=== PATIENT | female | born 1960 | race Caucasian/White ===

== ENCOUNTER 2023-01-24 11:10 | Emergency (ER) | payer OTHER ==
--- NOTE | 2023-01-24 11:59 | XRAY Report ---
PROCEDURE: Chest 1 View X-Ray INDICATIONS: SOA TECHNIQUE: One view of the chest was acquired. COMPARISON: None. FINDINGS: Surgical changes and devices: None. Lungs and pleura: No pleural effusions or pneumothorax. Lungs are clear. Mediastinum: Mediastinal contours appear normal. Heart size is normal. Bones and chest wall: No suspicious bony lesions. Overlying soft tissues appear unremarkable. IMPRESSION: No acute process. Reviewed by: Mj Bajwa MD on 01/24/2023 11:57 AM PDT Approved by: Mj Bajwa MD on 01/24/2023 11:57 AM PDT Station ID: [id number]
[2023-01-24] MEDS ORDERED: DEXAMETHASONE 10 MG/ML VIAL PO STA (13:11)
[2023-01-24] MEDS ORDERED: CHERRY SYRUP 10 ML UDC PO ONE (13:11)
[2023-01-24] MEDS ORDERED: IPRATROPIUM/ALBUTEROL 3 ML NEB INH STA (13:13)
--- NOTE | 2023-01-24 13:18 | ED Physician Documentation ---
PD HPI DYSPNEA - Stated complaint Stated Complaint: SOA - Chief complaint Chief Complaint: Resp - History obtained from History obtained from: Patient - History of Present Illness Timing - onset: Yesterday Timing - onset during: Rest Timing - duration: Days (2) Timing - details: Gradual onset, Still present Inciting event(s): Other (feels like it might be a pollen thing) Improved by: O2, Rest Worsened by: Exertion, Coughing, Allergens Associated symptoms: Cough, Wheezing. No: Bilateral edema, Unilateral edema Similar symptoms before: Diagnosis (eosinophilic asthma) Recently seen: Not recently seen - Additional information Additional information: Radha Patel is a 62-year-old female with a history of eosinophilic asthma who has been using her inhaler regularly and she does not using a rescue inhaler. Starting last night she began to have more more difficulty breathing and this morning she found that she was actually hypoxic with her home O2 monitor. She is come to the emergency department for evaluation. She has developed a cough and congestion. She is not bringing up phlegm. She feels this is related to pollens. Review of Systems Constitutional: denies: Fever Eyes: denies: Decreased vision Ears: denies: Ear pain Nose: reports: Congestion. 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 : None HEENT: None Psych: None Musculoskeletal: None Derm: None - Past Surgical History Past Surgical History: No - Present Medications Home Medications: Ambulatory Orders Medication Instructions Recorded Confirmed Albuterol Sulf [Ventolin Hfa 1 - 2 puffs INH Q4HR PRN #1 each 01/24/23 Inhaler] Cholecalciferol (Vitamin D3) 50 mcg PO DAILY 01/24/23 01/24/23 [Vitamin D3] DULoxetine [Cymbalta] 60 mg PO DAILY 01/24/23 01/24/23 Melatonin 5 mg PO HS 01/24/23 01/24/23 Prednisone [Brandon] 5 mg PO DAILY 01/24/23 01/24/23 QUEtiapine [SEROquel] 25 mg PO QPM 01/24/23 01/24/23 Thiamine [Vitamin B-1] 100 mg PO DAILY 01/24/23 01/24/23 Trazodone HCl 150 mg ORAL HS 01/24/23 01/24/23 diphenhydrAMINE [Benadryl] 25 mg PO Q4-6H 01/24/23 01/24/23 predniSONE [Deltasone] 10 mg PO ONCE #26 tablet 01/24/23 - Allergies Allergies/Adverse Reactions: Allergies Allergy/AdvReac Type Severity Reaction Status Date / Time No Known Drug Allergies Allergy Verified 01/24/23 11:27 - Social History Does the pt smoke?: No Smoking Status: Light tobacco smoker Does the pt drink ETOH?: No Does the pt have substance abuse?: No - Immunizations Immunizations are current?: Yes PD ED PE NORMAL - Vitals Vital signs reviewed: Yes - General General: Alert and oriented X 3, No acute distress, Well developed/nourished - HEENT HEENT: Atraumatic, PERRL, EOMI, Pharynx benign, Other (right TM obscured with cerumen left is clear ) - Neck Neck: Supple, no meningeal sign, No bony TTP - Cardiac Cardiac: RRR, No murmur - Respiratory Respiratory: Other (Tachypneic with diminished breath sounds and scattered wheezes) - Abdomen Abdomen: Soft, Non tender - Back Back: No CVA TTP, No spinal TTP - Derm Derm: Normal color, Warm and dry, No rash - Extremities Extremities: No deformity, No edema - Neuro Neuro: Alert and oriented X 3, powerhouse tender 2-12 intact, No motor deficit, No sensory deficit, Normal speech Eye Opening: Spontaneous Motor: Obeys Commands Verbal: Oriented GCS Score: 15 - Psych Psych: Normal mood, Normal affect Results - Vitals Vitals: Vital Signs - 24 hr 01/24/23 01/24/23 01/24/23 11:28 12:40 12:48 Temperature 36.6 C Heart Rate 107 H 100 99 Respiratory 28 H 20 22 Rate Blood Pressure 147/87 H 144/101 H O2 Saturation 92 88 L 93 If not protocol 2 : Oxygen Flow, liters/minute 01/24/23 01/24/23 01/24/23 13:25 14:03 14:32 Temperature Heart Rate 101 H 96 91 Respiratory 17 17 18 Rate Blood Pressure 139/98 H 126/89 H O2 Saturation 93 92 If not protocol 1.5 2 : Oxygen Flow, liters/minute Oxygen O2 Source Room air Oxygen Flow Rate 2 - Rads (name of study) Chest Relevant Findings:: Prelim report reviewed (Impression: No acute process.), EMP independent interpretation of test PD Medical Decision Making - ED course Complexity details: reviewed results, re-evaluated patient, considered differential, d/w patient ED course: 62-year-old female with eosinophilic asthma has an exacerbation. She arrives to the emergency department with some hypoxia this improves with oxygen. She has further improvement in her hypoxia to not require oxygen after treatment with dexamethasone and a DuoNeb. We will place her on a short burst of prednisone and have her follow-up with her stull hewer. She is not using a rescue inhaler at home and we will refill her rescue inhaler. Departure - Departure Disposition: Home, Self Care Clinical Impression: Exacerbation of persistent asthma Qualifiers: Asthma severity: moderate Qualified Code(s): J45.41 - Moderate persistent asthma with (acute) exacerbation Condition: Stable Instructions: ED Reactive Airway Disease Follow-Up: Ras Yang pulomonogist [Other] Prescriptions: Albuterol Sulf [Ventolin Hfa Inhaler] 1 - 2 puffs INH Q4HR PRN #1 each PRN Reason: Shortness Of Air/Wheezing predniSONE [Deltasone] 10 mg PO ONCE #26 tablet Comments: Radha, today it looks like you have an exacerbation of your asthma and we have given you a dose of dexamethasone today as well as a breathing treatment. It looks like this has helped. My recommendation is to start the prednisone taper tomorrow. This has been E scribed to the [facility] in [place]. In addition the use of a rescue inhaler under the circumstances is indicated. I have E scribed this to the [facility] in [place] as well. Use this when you are having difficulty breathing. If you are having to use the rescue inhaler every 2 hours all day or all night come back in here and see us. Discharge Date/Time: 01/24/23 14:58
[2023-01-24 14:38] VITALS: BP 126/89
== END 2023-01-24 14:58 | disposition home or self-care (01) ==
LOC: ED 11:10
DX: J45.41 Moderate persistent asthma with (acute) exacerbation (principal); I10 Essential (primary) hypertension; F17.200 Nicotine dependence, unspecified, uncomplicated; Z79.899 Other long term (current) drug therapy
CPT/HCPCS: 71045; 94640; 99283; 99284; A9270

== ENCOUNTER 2023-01-30 12:43 | Emergency (ER) | payer OTHER ==
--- NOTE | 2023-01-30 12:50 | ED Physician Documentation ---
PD HPI DYSPNEA - Stated complaint Stated Complaint: SOA - History obtained from History obtained from: Patient - History of Present Illness Timing - onset: How many weeks ago (08/01) Timing - onset during: Light activity Timing - duration: Weeks (08/01) Timing - details: Gradual onset, Still present Inciting event(s): URI (The patient has a history of asthma and feels that she has had some upper respiratory infection or allergies with increased wheezing and trouble breathing over the last 1-1/2 weeks. She is seen in the ER here approximately 6 days ago for this and given nebulizer treatment and started on prednisone.) Improved by: Inhaler/neb (She states her albuterol inhaler does help some but not prolongedly. She had felt better on the first 2 or 3 days after her visit here but more symptoms the last day. She has a home oximeter that showed high 80s percent last night/today.), Rest Worsened by: Exertion Associated symptoms: Cough, Wheezing. No: Fever, Hemoptysis, Chest pain / discomfort, Bilateral edema Similar symptoms before: Diagnosis (asthma) Recently seen: Emergency Dept (6 days ago) Review of Systems Constitutional: reports: Myalgias. denies: Fever, Chills Nose: reports: Congestion. denies: Rhinorrhea / runny nose Throat: denies: Sore throat Cardiac: denies: Chest pain / pressure Respiratory: reports: Dyspnea, Cough, Wheezing. denies: Hemoptysis GI: denies: Abdominal Pain, Nausea, Vomiting, Diarrhea Skin: denies: Rash, Lesions Neurologic: reports: Headache. 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 : None HEENT: None Psych: None Musculoskeletal: None Derm: None - Past Surgical History Past Surgical History: No - Present Medications Home Medications: Ambulatory Orders Medication Instructions Recorded Confirmed Albuterol Sulf [Ventolin Hfa 1 - 2 puffs INH Q4HR PRN #1 each 01/24/23 Inhaler] Cholecalciferol (Vitamin D3) 50 mcg PO DAILY 01/24/23 01/24/23 [Vitamin D3] DULoxetine [Cymbalta] 60 mg PO DAILY 01/24/23 01/24/23 Melatonin 5 mg PO HS 01/24/23 01/24/23 Prednisone [Brandon] 5 mg PO DAILY 01/24/23 01/24/23 QUEtiapine [SEROquel] 25 mg PO QPM 01/24/23 01/24/23 Thiamine [Vitamin B-1] 100 mg PO DAILY 01/24/23 01/24/23 Trazodone HCl 150 mg ORAL HS 01/24/23 01/24/23 diphenhydrAMINE [Benadryl] 25 mg PO Q4-6H 01/24/23 01/24/23 predniSONE [Deltasone] 10 mg PO ONCE #26 tablet 01/24/23 Amox/Clav 875/125 [Augmentin] 1 each PO Q12H #10 tablet 01/30/23 Ipratropium [Atrovent] 2 puffs INH Q6H #12.9 gm 01/30/23 dexAMETHasone [Decadron] 4 mg PO DAILY #7 tablet 01/30/23 - Allergies Allergies/Adverse Reactions: Allergies Allergy/AdvReac Type Severity Reaction Status Date / Time No Known Drug Allergies Allergy Verified 01/30/23 12:52 - Social History Does the pt smoke?: No Smoking Status: Light tobacco smoker Does the pt drink ETOH?: No Does the pt have substance abuse?: No - Immunizations Immunizations are current?: Yes PD ED PE NORMAL - Vitals Vital signs reviewed: Yes (sats 83% room air at triage, better on NC. ) - General General: Alert and oriented X 3, Well developed/nourished, Other (Prolonged expiratory phase. She is able to talk in sentences. Diffuse wheezing throughout all of expiration.) - Cardiac Cardiac: No murmur. No: RRR (regulr but tachycardic) - Respiratory Respiratory: No: Clear bilaterally (no coarse sounds but diffuse exp wheezing and tight lung sounds. Prolonged exp phase. ) - Abdomen Abdomen: Soft, Non tender - Derm Derm: Normal color, Warm and dry - Extremities Extremities: Normal ROM s pain, No edema, No calf tenderness / cord - Neuro Neuro: Alert and oriented X 3, No motor deficit, Normal speech - Psych Psych: Normal mood Results - Vitals Vitals: Vital Signs - 24 hr 01/30/23 01/30/23 01/30/23 12:52 12:56 13:10 Temperature 36.5 C 36.5 C Heart Rate 120 H 120 H 122 H Respiratory 38 H 28 H 20 Rate Blood Pressure 150/100 H 150/100 H O2 Saturation 83 L 93 If not protocol 4 : Oxygen Flow, liters/minute 01/30/23 01/30/23 01/30/23 14:03 15:33 16:45 Temperature Heart Rate 112 H 108 H 107 H Respiratory 18 18 16 Rate Blood Pressure 145/91 H 141/92 H O2 Saturation 94 95 If not protocol 2 : Oxygen Flow, liters/minute Oxygen O2 Source Room air Oxygen Flow Rate 2 - Labs Labs: Laboratory Tests 01/30/23 01/30/23 13:23 13:23 WBC 13.8 H RBC 4.60 Hgb 14.2 Hct 42.6 MCV 92.6 MCH 30.9 MCHC 33.3 RDW 12.5 Plt Count 316 MPV 8.3 Neut # (Auto) 9.2 H Lymph # (Auto) 1.9 [place] # (Auto) 0.6 Eos # (Auto) 1.9 H Baso # (Auto) 0.1 Absolute Nucleated RBC 0.00 Nucleated RBC % 0.0 Manual Slide Review Indicated RBC Morph Micro Appear 1+ ANISOCYTOSIS Sodium 138 Potassium 3.9 Chloride 104 Carbon Dioxide 26 Anion Gap 8.0 BUN 19 Creatinine 0.9 Estimated GFR (MDRD) 63 L Glucose 165 H Calcium 9.3 Total Bilirubin 0.7 AST 13 ALT 15 Alkaline Phosphatase 69 Total Protein 7.1 Albumin 4.1 Globulin 3.0 Albumin/Globulin Ratio 1.4 Lipase 37 - Rads (name of study) chest xray Relevant Findings:: Prelim report reviewed, EMP independent interpretation of test (no infiltrates.), See rad report PD Medical Decision Making - ED course Complexity details: considered differential, d/w patient ED course: The present patient presented with significant wheezing and some pursed lip breathing with prolonged expirations. Lung sounds were diffusely wheezy without any coarse sounds. Her initial oxygenation at triage was 83% on room air but improved to 94% on just 3 L nasal cannula. She was given DuoNeb and then albuterol nebulizers promptly here in the ER. She had been on tapering dose of prednisone from 6 days ago and was at the last dose 10 mg today. I supplemented with dexamethasone 8 mg orally for today. Recheck showed her to have less wheezing but still borderline oxygenation attempted on room air. She was comfortable at 2 L nasal cannula and had improved work of breathing. Approximately 30 to 40 minutes later, we did do a repeat albuterol nebulizer again along with budesonide nebulized. The patient was watched subsequently and had only mild wheezing at this time. Oxygenation on room air was 93 to 95%. She was feeling comfortable breathing. Chest x-ray did not show any infiltrates. However she does have a history of asthma and was having some sputum production. Literature would suggest the use of antibiotics in the setting. The patient seems stable for discharge and was here in the ER doing well on room air. She does have an oximeter at home. She is comfortable being discharged at this time. We will add an Atrovent to her albuterol inhaler. Respiratory therapy said it could potentially be possible to set her up with a home nebulizer subsequently if needed, though not able to set up home oxygen without primary care order. At this point we can still try the inhalers and add the Atrovent to it, continue her on steroids for another 5 to 7 days and add Augmentin antibiotic. She is to return to the ER if worsening breathing again or low oxygenation at home. Departure - Departure Disposition: Home, Self Care Clinical Impression: Exacerbation of asthma, Dyspnea Condition: Stable Record reviewed to determine appropriate education?: Yes Prescriptions: Ipratropium [Atrovent] 2 puffs INH Q6H #12.9 gm Amox/Clav 875/125 [Augmentin] 1 each PO Q12H #10 tablet dexAMETHasone [Decadron] 4 mg PO DAILY #7 tablet Comments: I would have you add the ipratropium/Atrovent inhaler as directed 4 times daily in addition to your albuterol inhaler 4 times daily over the next week or 2. At the albuterol extra doses every 2 hours if needed for wheeziness. I would extend your steroids. Dexamethasone daily for a week. Given your worsening symptoms with your asthma, we can add an antibiotic in case of a bacterial component. Augmentin twice daily for 5 days. I sent these prescriptions to your preferred pharmacy, [facility] in [place]. Your oxygenation was low initially but seem to improve after several treatments. At this point your 93 to 95% on room air. Keep track of this at home with your oximeter. Return if worsening again despite the above treatments.
[2023-01-30] MEDS: IPRATROPIUM/ALBUTEROL 3 ML NEB INH STA (13:07)
[2023-01-30] MEDS: ALBUTEROL NEB 2.5 MG/3 ML INH STA ×2 (13:23→15:30)
[2023-01-30 13:28] LABS: BASOPHILS # (AUTO) 0.1 10^3/uL (0.0-0.1); BASOPHILS % (AUTO) 0.8 %; EOSINOPHILS # (AUTO) 1.9 10^3/uL (0.0-0.7); EOSINOPHILS % (AUTO) 13.5 %; HCT - HEMATOCRIT 42.6 % (37.0-47.0); HGB - HEMOGLOBIN 14.2 g/dL (12.0-16.0); LYMPHOCYTES # (AUTO) 1.9 10^3/uL (1.5-3.5); MEAN CORPUSCULAR HEMOGLOBIN 30.9 pg (27.0-31.0); MEAN CORPUSCULAR HGB CONC 33.3 g/dL (32.0-36.0); MEAN CORPUSCULAR VOLUME 92.6 fL (81.0-99.0); MEAN PLATELET VOLUME 8.3 fL (7.9-10.8); MONOCYTES # (AUTO) 0.6 10^3/uL (0.0-1.0); MONOCYTES % (AUTO) 4.6 %; NEUTROPHILS # (AUTO) 9.2 10^3/uL (1.5-6.6); NEUTROPHILS % (AUTO) 66.6 %; PLT - PLATELET COUNT 316 10^3/uL (130-450); RED CELL DISTRIBUTION WIDTH 12.5 % (12.0-15.0); WHITE BLOOD COUNT 13.8 x10^3/uL (4.8-10.8)
[2023-01-30] MEDS: dexAMETHasone 4 MG TABLET PO STA (13:28)
[2023-01-30] MEDS: CETIRIZINE 10 MG TABLET PO STA (13:28)
[2023-01-30 13:31] LABS: SLIDE REVIEW? Indicated
--- NOTE | 2023-01-30 13:43 | XRAY Report ---
PROCEDURE: Chest 1 View X-Ray INDICATIONS: chest pain TECHNIQUE: One view of the chest was acquired. COMPARISON: None. FINDINGS: Surgical changes and devices: None. Lungs and pleura: No pleural effusions or pneumothorax. Lungs are clear. Mediastinum: Mediastinal contours appear normal. Heart size is normal. Bones and chest wall: No suspicious bony lesions. Overlying soft tissues appear unremarkable. IMPRESSION: No acute cardiopulmonary process. Reviewed by: Vineet Santana on 01/30/2023 1:41 PM PDT Approved by: Vineet Santana on 01/30/2023 1:41 PM PDT Station ID: [id number]
[2023-01-30 13:55] LABS: ALBUMIN 4.1 g/dL (3.2-5.5); ALBUMIN/GLOBULIN RATIO 1.4 (1.0-2.2); BILIRUBIN,TOTAL 0.7 mg/dL (0.2-1.0); CALCIUM 9.3 mg/dL (8.5-10.3); CREATININE 0.9 mg/dL (0.4-1.0); POTASSIUM 3.9 mmol/L (3.5-5.0); RBC MORPHOLOGY (MULTIPLE) 1+ ANISOCYTOSIS (NORMAL); TOTAL PROTEIN 7.1 g/dL (6.7-8.2)
[2023-01-30] MEDS: AMOX/CLAV 875 MG/125 MG TABLET PO STA (15:13)
[2023-01-30] MEDS: BUDESONIDE 0.5 MG/2 ML NEB INH STA (15:31)
[2023-01-30] MEDS: ACETAMINOPHEN 325 MG TABLET PO STA (17:04)
[2023-01-30 17:29] VITALS: BP 139/86
--- NOTE | 2023-01-30 19:22 | ED Physician Documentation ---
ED Addendum - Addendum Addendum: 01/30/23 19:22 Took call from pharmacy. Ipratropium inhaler not covered. Authorized changed to Combivent with the same Sig.
== END 2023-01-30 17:27 | disposition home or self-care (01) ==
LOC: ED 12:43
DX: J45.901 Unspecified asthma with (acute) exacerbation (principal); I10 Essential (primary) hypertension; F17.200 Nicotine dependence, unspecified, uncomplicated; Z79.899 Other long term (current) drug therapy
CPT/HCPCS: 36415; 71045; 80053; 83690; 85025; 94640; 99284; 99285; A9270; J7626; J8540

== ENCOUNTER 2023-02-05 12:04 | Observation (INO) | payer OTHER ==
[2023-02-05] MEDS ORDERED: IPRATROPIUM/ALBUTEROL 3 ML NEB INH STA (12:19)
[2023-02-05] MEDS ORDERED: ALBUTEROL NEB 2.5 MG/3 ML INH STA ×2 (12:28→12:57)
[2023-02-05] MEDS ORDERED: methylPREDNISolone SUCCINATE 125 MG/2 ML VIAL IVP STA (12:30)
[2023-02-05] MEDS ORDERED: ALBUTEROL NEB 2.5 MG/3 ML INH ONE (12:35)
--- NOTE | 2023-02-05 12:35 | ED Physician Documentation ---
History of Present Illness - Stated complaint Stated Complaint: SOA - Chief complaint Chief Complaint: Resp - Additonal information Additional information: 62-year-old female presents emergency department for evaluation of severe dyspnea. Reports that she has a history of eosinophilic asthma which was evaluated managed by pulmonology at [place]. Recently she has been on a steroid taper. However over the last several weeks she has been having increasing dyspnea. Today is the third ED visit since late December for dyspnea and hypoxemia. With the last ED visit on February 03 that she was started on Augmentin and given a further course of steroids with Decadron. While in the ER without last visit she was able to turn around after several nebulizers. The patient is using Combivent and albuterol inhalers orally at home almost constantly without resolution of symptoms. Here in the emergency department she presents tripoding tachypneic and saturating 85% on room air. She was immediately placed to a nonrebreather and brought into the emergency department. On presentation she is alert and talkative though clearly in respiratory distress. Patient reports that she is a former smoker having quit about 2 years ago. Review of Systems Constitutional: denies: Fever, Chills Cardiac: denies: Chest pain / pressure, Palpitations Respiratory: reports: Dyspnea, Cough, Wheezing GI: reports: Reviewed and negative : reports: Reviewed and negative Skin: reports: Reviewed and negative PD PAST MEDICAL HISTORY - Past Medical History Cardiovascular: Hypertension Respiratory: Asthma Neuro: Peripheral neuropathy Endocrine/Autoimmune: None GI: None HEAD OF STOCK: None : None HEENT: None Psych: None Musculoskeletal: None Derm: None - Past Surgical History Past Surgical History: No - Present Medications Home Medications: Ambulatory Orders Medication Instructions Recorded Confirmed Albuterol Sulf [Ventolin Hfa 1 - 2 puffs INH Q4HR PRN #1 each 01/24/23 Inhaler] Cholecalciferol (Vitamin D3) 50 mcg PO DAILY 01/24/23 01/24/23 [Vitamin D3] DULoxetine [Cymbalta] 60 mg PO DAILY 01/24/23 01/24/23 Melatonin 5 mg PO HS 01/24/23 01/24/23 Prednisone [Brandon] 5 mg PO DAILY 01/24/23 01/24/23 QUEtiapine [SEROquel] 25 mg PO QPM 01/24/23 01/24/23 Thiamine [Vitamin B-1] 100 mg PO DAILY 01/24/23 01/24/23 Trazodone HCl 150 mg ORAL HS 01/24/23 01/24/23 diphenhydrAMINE [Benadryl] 25 mg PO Q4-6H 01/24/23 01/24/23 predniSONE [Deltasone] 10 mg PO ONCE #26 tablet 01/24/23 Amox/Clav 875/125 [Augmentin] 1 each PO Q12H #10 tablet 01/30/23 Ipratropium [Atrovent] 2 puffs INH Q6H #12.9 gm 01/30/23 dexAMETHasone [Decadron] 4 mg PO DAILY #7 tablet 01/30/23 - Allergies Allergies/Adverse Reactions: Allergies Allergy/AdvReac Type Severity Reaction Status Date / Time No Known Drug Allergies Allergy Verified 01/30/23 12:52 - Social History Does the pt smoke?: No Smoking Status: Light tobacco smoker Does the pt drink ETOH?: No Does the pt have substance abuse?: No - Immunizations Immunizations are current?: Yes PD ED PE NORMAL - General General: Alert and oriented X 3 - Cardiac Cardiac: RRR (Sinus tachycardia on the monitor), Strong equal pulses - Respiratory Respiratory: No: No respiratory distress (Significant respiratory distress tachypneic in the 30s, tripoding. Distant to absent breath sounds on the right lung though diffuse wheeze on the left. Room air saturations 85%, saturating 94% on nonrebreather), Clear bilaterally - Abdomen Abdomen: Normal bowel sounds, Soft - Extremities Extremities: No deformity - Neuro Neuro: Alert and oriented X 3 Eye Opening: Spontaneous Motor: Obeys Commands Verbal: Oriented GCS Score: 15 Results - Vitals Vitals: Vital Signs - 24 hr 02/05/23 02/05/23 02/05/23 12:13 12:17 12:36 Temperature 36.6 C Heart Rate 125 H 124 H 120 H Respiratory 34 H 22 28 H Rate Blood Pressure 162/116 H O2 Saturation 85 L 97 02/05/23 13:04 Temperature Heart Rate 128 H Respiratory 28 H Rate Blood Pressure O2 Saturation Oxygen O2 Source Nasal cannula - EKG (time done) 1338 EKG releavant findings:: EKG personally interpreted by author of this note. Relevant findings are: Rate: Rate (enter#) (130) Rhythm: Sinus tachycardia [place]: LAD QRS: Low voltage Ischemia: Non specific changes Compare to prior EKG: Old EKG unavailable Computer interpretation: Agree with computer - Labs Labs: Laboratory Tests 02/05/23 02/05/23 02/05/23 12:32 12:32 12:32 WBC 15.5 H RBC 4.56 Hgb 14.1 Hct 42.1 MCV 92.3 MCH 30.9 MCHC 33.5 RDW 12.5 Plt Count 309 MPV 8.5 Neut # (Auto) MEDICAL PRACTICE ADMINISTRATOR Lymph # (Auto) MEDICAL PRACTICE ADMINISTRATOR [place] # (Auto) MEDICAL PRACTICE ADMINISTRATOR Eos # (Auto) MEDICAL PRACTICE ADMINISTRATOR Baso # (Auto) MEDICAL PRACTICE ADMINISTRATOR Absolute Nucleated RBC MEDICAL PRACTICE ADMINISTRATOR Total Counted 100 Band Neuts % (Manual) 1 Abnorm Lymph % (Manual) 0 Metamyelocytes % 1 H Nucleated RBC % MEDICAL PRACTICE ADMINISTRATOR Neutrophils # (Manual) 9.1 H Lymphocytes # (Manual) 3.3 Monocytes # (Manual) 0.9 Eosinophils # (Manual) 1.7 H Basophils # (Manual) 0.3 H Differential Comment MANUAL DIFFERENTIAL Manual Slide Review Indicated WBC Morphology NORMAL APPEARANCE Platelet Estimate NORMAL (130-450,000) Platelet Morphology NORMAL APPEARANCE RBC Morph Micro Appear NORMAL APPEARANCE Bld Gas Analysis Time Sample Site ABG pH ABG pCO2 ABG pO2 ABG HCO3 ABG Total CO2 ABG O2 Saturation ABG Base Excess Case Test O2 Delivery Device FiO2 Sodium 140 Potassium 3.8 Chloride 107 Carbon Dioxide 27 Anion Gap 6.0 BUN 22 H Creatinine 0.9 Estimated GFR (MDRD) 63 L Glucose 144 H Calcium 9.4 Total Bilirubin 0.5 AST 13 ALT 17 Alkaline Phosphatase 64 B-Natriuretic Peptide 14 Total Protein 7.0 Albumin 3.8 Globulin 3.2 Albumin/Globulin Ratio 1.2 Lipase 33 02/05/23 12:40 WBC RBC Hgb Hct MCV MCH MCHC RDW Plt Count MPV Neut # (Auto) Lymph # (Auto) [place] # (Auto) Eos # (Auto) Baso # (Auto) Absolute Nucleated RBC Total Counted Band Neuts % (Manual) Abnorm Lymph % (Manual) Metamyelocytes % Nucleated RBC % Neutrophils # (Manual) Lymphocytes # (Manual) Monocytes # (Manual) Eosinophils # (Manual) Basophils # (Manual) Differential Comment Manual Slide Review WBC Morphology Platelet Estimate Platelet Morphology RBC Morph Micro Appear Bld Gas Analysis Time 1257 Sample Site RIGHT RADIAL ABG pH 7.25 L ABG pCO2 57 H ABG pO2 98 ABG HCO3 24.5 ABG Total CO2 26.2 ABG O2 Saturation 96 ABG Base Excess -3.7 L Case Test POSITIVE O2 Delivery Device SIMPLE MASK FiO2 40.00 Sodium Potassium Chloride Carbon Dioxide Anion Gap BUN Creatinine Estimated GFR (MDRD) Glucose Calcium Total Bilirubin AST ALT Alkaline Phosphatase B-Natriuretic Peptide Total Protein Albumin Globulin Albumin/Globulin Ratio Lipase - Rads (name of study) cxr Relevant Findings:: Final report received (No acute cardiopulmonary process.) PD Medical Decision Making - ED course Complexity details: reviewed results, re-evaluated patient, considered differential, d/w patient ED course: 62-year-old female who has a history of eosinophilic asthma presents emergency department with acute respiratory distress/failure. She has been seen twice in this emergency department over the last several weeks and has been able to tune up and be discharged home after several nebulizers and courses of steroids. She remains on Decadron. However she has been using her albuterol inhaler constantly today as well as her ipratropium without resolution of symptoms. On presentation room air sats were 85%. She was tachypneic labored and tripoding. She was immediately placed on a nonrebreather with improvement in sa ts to 94%. RT was called to the bedside and a DuoNeb with albuterol was initiated. Initially cardiopulmonary auscultation refill field very poor air entry and almost no wheeze on the right side though there was wheezing on the left. Following the initial nebulizer she began to have some wheezing in both of her lung sorensen and her saturations had improved to 100%. Subsequently an ABG was obtained which showed a respiratory acidosis with pH of 7.25 and a CO2 of 57. Her PO2 was in the 90s. I also obtained a CBC and electrolytes. There is some mild leukocytosis with a white count of 15,000 however she has recently been on steroids. A chest x-ray showed no acute cardiopulmonary process and appears unchanged from the one completed recently. Patient was also administered 125 mg of methylprednisolone IV. Respiratory PCR panel is pending. Following the initial nebulizer a second albuterol 5 mg nebulizer was ordered and the patient was improving though I am a and fearful she will require BiPAP. Subsequently I have spoken with Dr. Shane the hospitalist who graciously agrees to bring the patient in for further evaluation and monitoring of her respiratory failure. The patient will be going to the ICU. - Critical Care Time(min): 30 Time Includes: Direct patient care, Review records, Reassess patient Data interpretation: Labs, Pulse ox, ABG Departure - Departure Disposition: 66 [facility] DC/Xfer Clinical Impression: Eosinophilic asthma Respiratory failure Qualifiers: Chronicity: acute Respiratory failure complication: hypoxia and hypercapnia Qualified Code(s): J96.01 - Acute respiratory failure with hypoxia
[2023-02-05] MEDS ORDERED: LORazepam 2 MG/ML VIAL IVP STA (12:40)
[2023-02-05 12:41] LABS: BASOPHILS % (AUTO) 0.8 %; HGB - HEMOGLOBIN 14.1 g/dL (12.0-16.0); RED CELL DISTRIBUTION WIDTH 12.5 % (12.0-15.0)
[2023-02-05 12:43] LABS: EOSINOPHILS % (AUTO) 10.2 %; HCT - HEMATOCRIT 42.1 % (37.0-47.0); LYMPHOCYTES % (AUTO) 22.6 %; MEAN CORPUSCULAR HEMOGLOBIN 30.9 pg (27.0-31.0); MEAN CORPUSCULAR HGB CONC 33.5 g/dL (32.0-36.0); MEAN CORPUSCULAR VOLUME 92.3 fL (81.0-99.0); MEAN PLATELET VOLUME 8.5 fL (7.9-10.8); MONOCYTES % (AUTO) 5.2 %; NEUTROPHILS % (AUTO) 60.3 %; PLT - PLATELET COUNT 309 10^3/uL (130-450); RED BLOOD COUNT 4.56 10^6/uL (4.20-5.40); WHITE BLOOD COUNT 15.5 x10^3/uL (4.8-10.8)
[2023-02-05 12:45] LABS: ABNORMAL LYMPHS % (MANUAL) 0 %; SLIDE REVIEW? Indicated
[2023-02-05 12:53] LABS: ALBUMIN 3.8 g/dL (3.2-5.5); ALBUMIN/GLOBULIN RATIO 1.2 (1.0-2.2); BILIRUBIN,TOTAL 0.5 mg/dL (0.2-1.0); CALCIUM 9.4 mg/dL (8.5-10.3); CREATININE 0.9 mg/dL (0.4-1.0); POTASSIUM 3.8 mmol/L (3.5-5.0)
[2023-02-05 12:58] LABS: ABG BASE EXCESS -3.7 mmol/L (-2.0-3.0); ABG HCO3 24.5 mmol/L (22.0-26.0); ABG OXYGEN SATURATION 96 % (94-98); ABG PCO2 57 mmHg (34-45); ABG PH 7.25 (7.35-7.45); ABG PO2 98 mmHg (80-100); ABG TCO2 26.2 MMOL/L (21.0-29.0); ALLEN TEST POSITIVE
[2023-02-05 13:06] LABS: BAND NEUTROPHILS % (MANUAL) 1 %; BASOPHILS # (MANUAL) 0.3 10^3/uL (0-0.1); BASOPHILS % (MANUAL) 2 %; EOSINOPHILS # (MANUAL) 1.7 10^3/uL (0-0.7); LYMPHOCYTES # (MANUAL) 3.3 10^3/uL (1.5-3.5); LYMPHOCYTES % (MANUAL) 21 %; METAMYELOCYTES % (MANUAL) 1 %; MONOCYTES # (MANUAL) 0.9 10^3/uL (0.0-1.0); NEUTROPHILS # (MANUAL) 9.1 10^3/uL (1.5-6.6)
[2023-02-05 13:07] LABS: PLATELET ESTIMATE, MANUAL NORMAL (130-450,000) (NORMAL); PLATELET MORPHOLOGY NORMAL APPEARANCE (NORMAL); RBC MORPHOLOGY (MULTIPLE) NORMAL APPEARANCE (NORMAL); WBC MORPHOLOGY (MULTIPLE) NORMAL APPEARANCE (NORMAL)
[2023-02-05 13:08] LABS: DIFFERENTIAL COMMENT MANUAL DIFFERENTIAL
--- NOTE | 2023-02-05 13:10 | XRAY Report ---
PROCEDURE: Chest 1 View X-Ray INDICATIONS: SOA, hypoxia TECHNIQUE: One view of the chest was acquired. COMPARISON: None. FINDINGS: Surgical changes and devices: None. Lungs and pleura: No pleural effusions or pneumothorax. Lungs are clear. Mediastinum: Mediastinal contours appear normal. Heart size is normal. Bones and chest wall: No suspicious bony lesions. Rightward curvature of the thoracic spine Overlyin g soft tissues appear unremarkable. IMPRESSION: No acute cardiopulmonary process. Reviewed by: Rao Vidal on 02/05/2023 12:08 PM JOI Approved by: Rao Vidal on 02/05/2023 12:08 PM JOI Station ID: [id number]
[2023-02-05] MEDS ORDERED: oxyCODONE 5 MG TABLET PO PRN (13:24)
[2023-02-05] MEDS ORDERED: ONDANSETRON 4 MG/2 ML VIAL IVP PRN (13:24)
[2023-02-05] MEDS ORDERED: SODIUM CHLORIDE FLUSH 0.9% 10 ML SYRINGE IVP PRN (13:24)
[2023-02-05] MEDS ORDERED: ONDANSETRON ODT 4 MG TABLET TL PRN (13:24)
[2023-02-05] MEDS ORDERED: ALBUTEROL NEB 2.5 MG/3 ML INH PRN (13:27)
[2023-02-05] MEDS ORDERED: FORMOTEROL FUMARATE NEB 20 MCG/2 ML INH STA (13:28)
--- NOTE | 2023-02-05 13:32 | HISTORY & PHYSICAL EXAMINATION ---
Chief Complaint - Chief Complaint Chief Complaint: Severe shortness of History of Present Illness - Admitted From Admitted From:: Home - History Obtained From Records Reviewed: [facility] History obtained from: Patient and MANAGER PHOTOGRAPHY in the ER Exam Limitations: None - History of Present Illness HPI Comment/Other: This is a 62-year-old female who is followed in the [facility] by pulmonology for a new diagnosis of eosinophilic asthma. Dr. Cosme at [facility] is the [employer] Crew Chief at [phone]. This is now her third visit to the ED in the last month. She usually recovers with nebulizer treatments and is able to go home after nebulizer treatment and a steroid infusion. Maintenance therapy for her asthma is albuterol and ipratropium as needed with intermittent pulse dose steroids Deltasone or dexamethasone. But I am not seeing a chronic maintenance therapy of long-acting bronchodilators. Or leukotriene inhibitors. Patient is not aware of the etiology of the eosinophilic pneumonitis. Her dad tells me that she does take her meds and he gives them to her. He stopped her Seroquel . Gabapentin is also being phased that out. This morning he noted some of those pills on her night stand. 2 weeks ago she was told by her [facility] doctor to go on oxygen. She was using her inhalers every 2 minutes bc so frantic to breath. In the emergency room temperature was 36.6, heart rate 125, blood pressure 162/116, respirations 34 and she was 85% on room air. The chest x-ray has no infiltrate. White cell count is elevated at 15,000 but she is on steroids. It was 13.8 on the January 30 ER visit. The ER provider described her as struggling to breathe, tripoding, tachypneic, and desperate. No air movement at all. She received 2 nebulizers and a Solu- Medrol injection. She now has timo wheezing and that provider can hear breath sounds. But she is still tachypneic at 28. Still tachycardic at 128.She is very, very anxious. Keeps on pulling the mask off her face. She had to get Ativan to calm her down. ER provider and I discussed that the patient should most likely come in for observation status. However she is tenuous with regards to stability and the ER provider thinks that she may need BiPAP if not timo intubation if this doesn't work. As such, I am placing the patient in the ICU. I have discussed the case with respiratory therapy as well. He has been working with her in the ER for the last hour or 2 and he says that her anxiety is a large component of her current presentation. He is dubious that we will be able to keep the BiPAP mask on her without severe sedation. Her dad confirms that s he is very driven by anxiety. It just escalates her breathing to the point that it is out of control. But I told him that was so understandable. When you feel like you cannot breathe, it must be a horrible feeling. He also tells me that she has advanced directives in her will and she doesn't want life support, no intubation or CPR. By the time she got to ICU, she is very sedated. She wakes to my voice. She wakes to my shaking her shoulder. She stays awake for maybe 1 or 2 sentences and then goes right back to sleep again. A lot of her history is obtained from her father who was able to speak to me on the phone. 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 nonsmoker. tried it a few times but hated it. Has a home in [facility]. Was trying to drink herself to once her . She was a social drinker but it escalated to the point of involuntary hold 05/26/21. She was at [facility] for a month. then sent for 2 months to SNF in [place]. Meliza was bad there. Was hospitalized for week for PE and pna during her 2 months there but he never knew where. Then from the SNF, 08/31/21, she went to [facility] in [place] until December 16, 2022. While there given a bottle of vodka and taken to ER bc of behavior, maybe in October 2022. The bottle was given to her by someone pretending to be her friend (a securities and real estate director who was trying to get the house fo sale in [place]) and she shouldn't have drunk it. That was last time she drank and prior to that had been sober for 18 months. December 05 she was at [facility] as well. Sudden sob and alfaro. He doesn't know details. She then walked away from intermediate and went to [place]. She called her dad 2 days later. December 20 brought to dad's home. Dad says her will reads DNR and no heroic measures. Specifically asked if she wanted to to be intubated. Once we stabilize her, he wonders if she should be transferred to [facility]. He also wants the info at discharge given to him bc she loses it and he can't figure out what to do. 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 HTN, and pacemaker, on coumadin. Mom 2014, age 84. She was retired Home Health PT here in our hospital. Cause of was progressive supranuclear palsy. Siblings, Naveen is brother. OCD real bad. No children. 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 nonsmoker. tried it a few times but hated it. Lives in [facility]. Involuntariy 05/26/21. At [facility] for a month. then 2 months to SNF in [place]. Covid bad there. Was hospitalized for week for PE and pna.08/31/21 went to [facility] in [place] until December 16, 2022. Walked away to [employer]. She called her dad 2 days later. December 20 brought to dad's home. - Substance History Use: Uses substance without health or social issues: Alcohol - POLST Patient has POLST: No POLST Status: DNR (on advanced directive) Meds/Allgy - Home Medications Home Medications: Ambulatory Orders Medication Instructions Recorded Confirmed Albuterol Sulf [Ventolin Hfa 1 - 2 puffs INH Q4HR PRN #1 each 01/24/23 02/05/23 Inhaler] Cholecalciferol (Vitamin D3) 50 mcg PO DAILY 01/24/23 02/05/23 [Vitamin D3] DULoxetine [Cymbalta] 60 mg PO DAILY 01/24/23 02/05/23 Melatonin 5 mg PO HS 01/24/23 02/05/23 Prednisone [Brandon] 10 mg PO DAILY 01/24/23 02/05/23 Thiamine [Vitamin B-1] 100 mg PO DAILY 01/24/23 02/05/23 Trazodone HCl 150 mg ORAL HS 01/24/23 02/05/23 diphenhydrAMINE [Benadryl] 25 mg PO QPM 01/24/23 02/05/23 Ipratropium [Atrovent] 2 puffs INH Q6H #12.9 gm 01/30/23 02/05/23 Fluticasone/Vilanterol [Breo 1 puffs INH DAILY 02/05/23 02/05/23 Ellipta 200-25 Mcg INH] Gabapentin [Neurontin] 900 mg PO QPM 02/05/23 02/05/23 - Allergies Allergies/Adverse Reactions: Allergies Allergy/AdvReac Type Severity Reaction Status Date / Time No Known Drug Allergies Allergy Verified 01/30/23 12:52 Review of Systems - All Other Systems All Other Systems: reports: Other (Unable to do a complete review of systems on this patient. Dad was helpful but she is too sedated to answer) Prior Level of Functionality: She is able to dress herself, feed herself. Dad handles her medicines as a way of making sure she stays compliant. She does not drive anymore. No durable medical equipment. Dad is 89 Exam - Vital Signs Reviewed Vital Signs: Yes Vital Signs: Vital Signs x48h Temp Pulse Resp BP Pulse Ox 02/05/23 13:04 128 H 28 H 02/05/23 12:36 120 H 28 H 02/05/23 12:17 124 H 22 97 02/05/23 12:13 36.6 C 125 H 34 H 162/116 H 85 L - Physical Exam General Appearance: positive: Other (Deeply asleep. Awakens to my voice and I have to yell to keep her eyes open to speak to me. Nursing is struggling to try and get her to eat her dinner. Audible wheezing without a stethoscope. But lying comfortably at 40 to 45 degrees. No use of accessory muscle) Eyes Bilateral: positive: PERRL (When I push open her eyelids she wakes suddenly and says "Filippo, am I in the movies?!"), EOMI ENT: positive: No signs of dehydration Neck: positive: No JVD. negative: Stiff neck Respiratory: positive: Wheezes, Rhonchi Cardiovascular: positive: Regular rate & rhythm, Tachycardia Peripheral Pulses: positive: 1+ Abdomen: positive: Non-tender, No organomegaly, Nml bowel sounds, No distention Skin: positive: Warm, Dry Extremities: positive: Full ROM, No pedal edema Neurologic/Psychiatric: positive: CN's nml (2-12), Motor nml (No tremors, no focal deficits, toes are downgoing with Babinski), Other (Deeply sedated, but wakes to my voice, wakes to my shake. Goes right back to sleep after trying to answer my questions. Knows that she is in [place].) Conclusion/Plan - Problem List (1) Acute respiratory failure with hypoxia and hypercapnia Conclusion/Plan: Due to asthma. This patient does not have a history of emphysema, congestive heart failure or interstitial lung disease. Plan: Due to continued severe tripoding and wheezing, she will be placed in the ICU for an over abundance of caution. If she needs to be put on BiPAP she will be in the best place to do so. See problem #2 plan for therapeutic management 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 She does not have severe sinus disease, nasal polyposis. Her med list does not include nonsteroidal, specifically it does not include aspirin. I do not know if her expeller operator has identified her as having high T2 inflammatory marker levels. I do see the eosinophilia in her CBC but there is no records for me to review that would let me know if her mast cells, basophils or T-helper 2 lymphocytes are elevated. If she was identified as this subset, there is some efficacy in using immune modulating targeted therapy. She fits the type in that this type of asthma appears more common among late onset asthma than childhood. She is not on any leukotriene modifying agents. Singulair, Accolate would be first agents. If this does not help, she would be a candidate for zileuton. She is not on a LABA or a LAMA. I would also start with those first.Chest x-ray is clear of infiltrate. Plan: Start a LABA in the form of Perforomist twice daily Start long-acting steroid in the form of budesonide DuoNeb at a fixed schedule while here at every 6 hours while awake Albuterol every 2 hours as needed Singulair 10 mg a day I have asked the [facility] to call Veda Tsang for the April 2021 admission/discharge records. [facility] for the November 2022 admission. And [facility] for the most recent admission as well. Qualifiers: Asthma severity: severe Qualified Code(s): J45.51 - Severe persistent asthma with (acute) exacerbation (3) Depression with anxiety Conclusion/Plan: She is on Cymbalta and trazodone. I will resume those medications. He states that she was taking gabapentin for peripheral neuropathy but it sedated her too much so he has been phasing her out of it. Same with Seroquel. He did not feel it was doing any good and she is no longer on Seroquel. - Lab Results Lab results reviewed: Yes Fish Bones: 02/05/23 12:32 02/05/23 12:32 - Diagnostic Imaging Results Diagnostic Imaging Results: positive: Final report reviewed Diagnostic Imaging Results Comments: No acute cardiopulmonary process on chest x-ray Core Measures - Anticipated LOS I expect patient to be DC'd or transferred within 96 hours.: Yes - DVT/VTE - Prophylaxis VTE/DVT Device ordered at admit?: Yes
[2023-02-05] MEDS ORDERED: SODIUM CHLORIDE 0.9% 1,000 ML IV SCH (14:00)
[2023-02-05 14:37] LABS: B. PARAPERTUSSIS- RESP PCR PAN NOT DETECTED; B. PERTUSSIS- RESP PCR PANEL NOT DETECTED; C. PNEUMONIAE- RESP PCR PANEL NOT DETECTED; CORONAVIRUS 229E-RESP PCR NOT DETECTED; CORONAVIRUS HKU1-RESP PCR NOT DETECTED; CORONAVIRUS NL63-RESP PCR NOT DETECTED; CORONAVIRUS OC43-RESP PCR NOT DETECTED; HUMAN METAPNEUMOVIRUS NOT DETECTED; INFLUENZA A- RESP PCR PANEL NOT DETECTED; INFLUENZA B - RESP PCR PANEL NOT DETECTED; M. PNEUMONIAE- RESP PCR PANEL NOT DETECTED; PARAINFLUENZA VIRUS 1 NOT DETECTED; PARAINFLUENZA VIRUS 2 NOT DETECTED; PARAINFLUENZA VIRUS 3 NOT DETECTED; PARAINFLUENZA VIRUS 4 NOT DETECTED; RHINOVIRUS/ENTEROVIRUS NOT DETECTED; RSV- RESP PCR PANEL NOT DETECTED; SARS-CoV-2 -RESP PCR PANEL NOT DETECTED
[2023-02-05] MEDS ORDERED: POTASSIUM CHLORIDE 20 MEQ TABLET PO ONE (14:46)
[2023-02-05] MEDS: PANTOPRAZOLE 40 MG TABLET PO SCH (15:06)
[2023-02-05] MEDS: IPRATROPIUM/ALBUTEROL 3 ML NEB INH SCH ×2 (15:08→20:10)
--- NOTE | 2023-02-05 15:11 | PHARMACY PROGRESS NOTE ---
- Best Possible Medication History Admit Date and Time: 02/05/23 4553 Processed by: Pharmacy Medication History completed: Yes Patient Interview: Completed Secondary Source(s): Pharmacy records, Insurance records As the person ultimately responsible for medication therapy, providers are able to order a medication from an existing home medication list in [facility] via the "Reconcile Routine" prior to Confirmation of that medication by pit crew support worker. Such practice is discouraged except when the physician, in their clinical judgment, deems that a medical need exists for a medication without regard to previous use.
[2023-02-05] MEDS: SODIUM CHLORIDE FLUSH 0.9% 10 ML SYRINGE IVP SCH ×2 (17:40→23:35)
[2023-02-05] MEDS: methylPREDNISolone SUCCINATE 40 MG/ML VIAL IVP SCH ×2 (17:40→23:35)
[2023-02-05] MEDS: FORMOTEROL FUMARATE NEB 20 MCG/2 ML INH SCH (20:10)
[2023-02-05] MEDS: BUDESONIDE 0.5 MG/2 ML NEB INH SCH (20:10)
[2023-02-05] MEDS: ethyl alcohoL 62% SWAB AMPULE NAS SCH (20:53)
[2023-02-05] MEDS ORDERED: traZODone 50 MG TABLET PO SCH (21:00)
[2023-02-05] MEDS ORDERED: MONTELUKAST 10 MG TABLET PO SCH (21:00)
[2023-02-05] MEDS: ACETAMINOPHEN 325 MG TABLET PO PRN (21:19)
[2023-02-06] MEDS: ACETAMINOPHEN 325 MG TABLET PO PRN (05:54)
[2023-02-06] MEDS: PANTOPRAZOLE 40 MG TABLET PO SCH (05:54)
[2023-02-06] MEDS: methylPREDNISolone SUCCINATE 40 MG/ML VIAL IVP SCH ×2 (05:54→11:41)
[2023-02-06 06:13] LABS: BASOPHILS % (AUTO) 0.2 %; HCT - HEMATOCRIT 40.2 % (37.0-47.0); HGB - HEMOGLOBIN 13.3 g/dL (12.0-16.0); LYMPHOCYTES # (AUTO) 0.7 10^3/uL (1.5-3.5); LYMPHOCYTES % (AUTO) 7.1 %; MEAN CORPUSCULAR HEMOGLOBIN 30.2 pg (27.0-31.0); MEAN CORPUSCULAR HGB CONC 33.1 g/dL (32.0-36.0); MEAN CORPUSCULAR VOLUME 91.2 fL (81.0-99.0); MEAN PLATELET VOLUME 8.5 fL (7.9-10.8); MONOCYTES # (AUTO) 0.1 10^3/uL (0.0-1.0); MONOCYTES % (AUTO) 1.1 %; NEUTROPHILS # (AUTO) 9.6 10^3/uL (1.5-6.6); NEUTROPHILS % (AUTO) 91.1 %; PLT - PLATELET COUNT 290 10^3/uL (130-450); RED BLOOD COUNT 4.41 10^6/uL (4.20-5.40); RED CELL DISTRIBUTION WIDTH 12.4 % (12.0-15.0); WHITE BLOOD COUNT 10.5 x10^3/uL (4.8-10.8)
[2023-02-06 06:16] LABS: CALCIUM, IONIZED 1.22 mmol/L (1.15-1.33); VBG PH 7.385 (7.31-7.41)
[2023-02-06 06:25] LABS: CALCIUM 9.4 mg/dL (8.5-10.3); CREATININE 0.7 mg/dL (0.4-1.0); MAGNESIUM 1.7 mg/dL (1.7-2.8); PHOSPHORUS 3.4 mg/dL (2.5-4.6); POTASSIUM 4.4 mmol/L (3.5-5.0)
[2023-02-06] MEDS: IPRATROPIUM/ALBUTEROL 3 ML NEB INH SCH ×3 (07:01→14:24)
[2023-02-06] MEDS: FORMOTEROL FUMARATE NEB 20 MCG/2 ML INH SCH (07:01)
[2023-02-06] MEDS: BUDESONIDE 0.5 MG/2 ML NEB INH SCH (07:01)
[2023-02-06] MEDS ORDERED: MAGNESIUM OXIDE 400 MG TABLET PO ONE ×2 (08:00→12:27)
[2023-02-06] MEDS: ethyl alcohoL 62% SWAB AMPULE NAS SCH (08:02)
[2023-02-06] MEDS: SODIUM CHLORIDE FLUSH 0.9% 10 ML SYRINGE IVP SCH (08:05)
[2023-02-06] MEDS ORDERED: DULoxetine 30 MG CAPSULE PO SCH (09:00)
--- NOTE | 2023-02-06 10:55 | PROVIDER PROGRESS NOTE ---
Progress Note February 06, 2023 10:32 AM 50 minutes was spent in seeing the patient, examining her, and then carefully reviewing her old medical records. Patient is awake, alert. Cooperative. Does not remember anything from yesterday. Does not remember meeting me but I told her that was understandable considering she kept on falling asleep in the middle of my evaluation. She still is wheezing. Has a mild cough. Reduced appetite and ate only a little bit of her breakfast. She knows that she is in the hospital but is cagey about where the hospital is. That leads me to believe that she does not know where she is. She is oriented to self. Some of her previous medical records have come in. [facility] medicine discharge summary reviewed from May 14, 2022 through May 20, 2022 admission. Before admission she was on 4 L at home. Had a history of Warnicke's encephalopathy and dementia. Hypertension. And chronic pain who came to the ED for confusion and altered mental status. She was encephalopathic. Lives in an adult family home. At the adult family home she was drowsy and minimally responsive so ambulance was called. O2 was 75% on her baseline 4 L. She was treated as acute on chronic respiratory failure with hypoxia and hypercapnia, community-acquired pneumonia, COPD exacerbation. The CT angiogram did not show pulmonary embolism but she had chronic pulmonary hypertension, a left lower lobe consolidation, diffuse bronchial wall thickening with multiple areas of plugging. She responded to antibiotics, steroids, but no BiPAP. Palliative care was consulted with her court appointed DPOA, Pavan Lynne, Patient is DNR/DNI. Sent home on steroids, nebulizer machine, and to follow-up with the speeder frame tender. The next record I can review is [facility] in [place] for admission December 05, 2022 through December 09, 2022. With that admission she is described as a person who has a history of eosinophilic pneumonia (she had established herrself with a speeder frame tender and received this diagnosis), pulmonary hypertension, Warnicke's encephalopathy and presented with acute productive cough and hypoxemia. Prior to that admission she was described as having frequent flareups that typically responded to steroids. With that admission, they reviewed that she had a prolonged hospital stay in June 2022 notable for acute hypoxemic respiratory failure and diffuse patchy groundglass abnormalities that were never characterized. She is supposed to be on ICS/LABA, LAMA, montelukast and as needed albuterol. Between June 2022 and September 2022, she had been weaned off her supplemental oxygen. She was kept on a protracted prednisone taper. She had been doing well on her outpatient inhaler regimen until 2 weeks prior to the December 05 admission. More cough, more phlegm, increased work of breathing. They felt that the admission on December 05 was recurrent exacerbation in the setting of ongoing peripheral eosinophilia and steroid taper. ANCA negative. She was treated with antibiotics and steroids. Would have episodes without symptoms and desaturate to the 70s on occasion. These episodes were alarming sudden hypoxemic episodes. They worried about pulmonary emboli but CT angiogram was negative. Suggestive of shunt physiology. Transthoracic echo negative for intracardiac shunt on bubble study. ABG did not show hypercapnea, only hypoxia. 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 Bronchoscopy was considered but in the end not done. Discharged on supplemental oxygen and a steroid taper and to follow-up with her speeder frame tender. They are considering doing a biologic agent with antiinterleukin 5. Her mental baseline is that of a person who is confabulating, paranoid. JOSÉ MIGUEL Snow was mentioned with this admit.Medications at discharge were prednisone taper, DuoNeb every 4 hours, no antibiotics, Breo Ellipta and Trio Tropium, and stopping her amlodipine since it might be contributing to poor VQ mismatch. The patient tells me she does not have nebulizers. She only has hand-held devices. She uses albuterol HFA, and Breo. That said. I do do not know where the communication broke down about what she supposed to be taking. Her dad is 1 has been giving her her medicines. He tells me that he was not aware of any of these medications. He has pieced together what discharge instructions are. It now makes more sense that the discharge was probably done with the DPOA and court appointed guardian and not the father. So when she walked away from her adult family home in November, disappeared for 3 days, and then came back into her father's life he does not have this information. Vitals: Temperature 36.5 Heart rate 107 Blood pressure 132/92, respiration 18, 92% on room air. 86 kg, middle-aged white female who looks disheveled, fatigued, slightly hoarse voice and sinus congestion but is sitting upright in bed. Is comfortable. 1 cough during my exam. Neck is supple Lungs have diffuse scattered wheezing in all lung sorensen. But no respiratory distress. Yesterday she was tripoding and struggling to breathe and frantic with that. Today she is calm, sitting upright if not slightly reclined. Tachycardic regular rate and rhythm Abdomen is obese, soft, nontender with normal bowel sounds Extremities have no edema Oriented to situation and self but not to place or date Lab: Sodium 139, potassium 4.4, BUN 18, creatinine 0.7. These are normal and these were normal yesterday as well. Random glucose 171. Calcium 9.4, phosphorus 3.4, magnesium 1.7 White cell count is down to 10.5. She was 15.5 on admission. Hemoglobin 13.3. Platelets 290. Conclusion/Plan - Problem List (1) Acute respiratory failure with hypoxia and hypercapnia Conclusion/Plan: Due to asthma. In reviewing her old records, she does have pulmonary hypertension and I would suspect an element of cor pulmonale when she is decompensating. Echoes have showed normal ejection fractions with elevated pulmonary pressures. No shunts. The mechanism of her severe hypoxia is not clearly diagnosed yet according to those notes. Between yesterday's admission when she was almost intubated, severe tripoding, wheezing, and now today, she is much improved. She is sitting up in bed, comfortable. Able to speak normally without severe hypoxemia. But still has diffuse wheezing.So she has improved from yesterday to today but she is not at baseline. She is still not clear about how much oxygen she uses at home. Plan: The previous chart admission describes sudden hypoxemic episodes that are quite alarming. As such I am keeping her in the ICU.She will remain in observation status after discussing with utilization review Continue to treat her exacerbation of persistent asthma as delineated in problem #2. 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 She does not have severe sinus disease, nasal polyposis. Her med list does not include nonsteroidal, specifically it does not include aspirin. Now that I been able to review her old records, she is supposed to be on a leukotriene modifying agent, LABA/LAMA. She was discharged on those medications to her shelter. But she then left her shelter and disappeared for 3 days. She called her father, he came and picked her up. He does not have access to her medication list and has been scrambling to put pieces together for her. From what she has on her, he has been giving it to her. Plan: I will continue Perforomist, budesonide, DuoNeb 4 times a day, albuterol as needed, singular 10 mg a day. I will let her speeder frame tender know that she is here. I will ask him if there is anything he needs me to change. My plan is getting her through this acute episode, and discharged back to her dad's house. But someone needs to sit down with the father and go over all of these medications to make sure he gets into her as instructed. She has a court appointed guardian, and I do not know if we should be calling the court appointed guardian. I have spoken to social work and asked them to please investigate who the DPOA is. Qualifiers: Asthma severity: severe Qualified Code(s): J45.51 - Severe persistent asthma with (acute) exacerbation (3) Depression with anxiety Conclusion/Plan: She is on Cymbalta and trazodone. I will resume those medications. Dad stated with my admission david that she was taking gabapentin for peripheral neuropathy but it sedated her too much so he has been phasing her out of it. Same with Seroquel. He did not feel it was doing any good and she is no longer on Seroquel. Chronic problems to be noted but no current change in treatment: (1) Warnicke's encephalopathy (2) history of hypertension (3) peripheral neuropathy (4) insomnia (5) acute kidney injury (6) cataract surgery scheduled for December 10 and canceled
[2023-02-06] MEDS ORDERED: BENZOCAINE/MENTHOL LOZENGE MM PRN (11:44)
--- NOTE | 2023-02-06 13:51 | PROVIDER PROGRESS NOTE ---
Objective - Vital Signs/Intake & Output Vital Signs: Vital Signs x48h Temp Pulse Pulse Resp BP Pulse Ox O2 Flow Rate 02/06/23 13:00 112 H 19 148/97 H 94 02/06/23 12:00 36.8 C 106 H 20 124/87 H 94 02/06/23 11:10 102 H 20 02/06/23 11:00 104 H 20 119/84 H 92 02/06/23 10:00 107 H 18 132/92 H 92 02/06/23 09:00 117 H 19 135/85 H 94 2 02/06/23 08:00 36.5 C 97 15 134/85 H 95 1 02/06/23 07:02 94 18 2 02/06/23 07:00 87 20 126/93 H 98 2 02/06/23 06:23 99 17 143/95 H 96 2 Intake & Output: Intake & Output 02/03/23 02/04/23 02/05/23 02/06/23 23:59 23:59 23:59 23:59 Intake Total 520 2260 Output Total 500 0 Balance 20 2260 - Lab Results Fish Bones: 02/06/23 05:53 02/06/23 05:53 Other Labs: Lab Results x24hrs 02/06/23 02/06/23 02/06/23 Range/Units 12:07 05:53 05:53 WBC (4.8-10.8) x10^3/uL RBC (4.20-5.40) 10^6/uL Hgb (12.0-16.0) g/dL Hct (37.0-47.0) % MCV (81.0-99.0) fL MCH (27.0-31.0) pg MCHC (32.0-36.0) g/dL RDW (12.0-15.0) % Plt Count (130-450) 10^3/uL MPV (7.9-10.8) fL Neut # (Auto) (1.5-6.6) 10^3/uL Lymph # (Auto) (1.5-3.5) 10^3/uL [place] # (Auto) (0.0-1.0) 10^3/uL Eos # (Auto) (0.0-0.7) 10^3/uL Baso # (Auto) (0.0-0.1) 10^3/uL Absolute Nucleated RBC x10^3/uL Nucleated RBC % /100WBC VBG pH 7.385 (7.31-7.41) Ionized Calcium 1.22 (1.15-1.33) mmol/L Sodium 139 (135-145) mmol/L Potassium 4.4 (3.5-5.0) mmol/L Chloride 108 (101-111) mmol/L Carbon Dioxide 26 (21-32) mmol/L Anion Gap 5.0 L (6-13) BUN 18 (6-20) mg/dL Creatinine 0.7 (0.4-1.0) mg/dL Estimated GFR (MDRD) 85 L (>89) Glucose 171 H (70-100) mg/dL Calcium 9.4 (8.5-10.3) mg/dL Phosphorus 3.4 (2.5-4.6) mg/dL Magnesium 1.7 1.7 (1.7-2.8) mg/dL Nasal Adenovirus (PCR) Nasal B. parapertussis DNA (PCR) Nasal Coronavir 229E PCR Nasal Coronavir HKU1 PCR Nasal Coronavir NL63 PCR Nasal Coronavir OC43 PCR Nasal Enterovir/Rhinovir PCR Nasal Influenza B PCR Nasal Influenza A PCR Nasal Parainfluen 1 PCR Nasal Parainfluen 2 PCR Nasal Parainfluen 3 PCR Nasal Parainfluen 4 PCR Nasal RSV (PCR) Nasal Screen MRSA (PCR) (NEGATIVE) Nasal B.pertussis DNA PCR Nasal C.pneumoniae (PCR) Vicente Human Metapneumo PCR Nasal M.pneumoniae (PCR) Nasal SARS-CoV-2 (PCR) 02/06/23 02/05/23 02/05/23 Range/Units 05:53 19:38 14:30 WBC 10.5 (4.8-10.8) x10^3/uL RBC 4.41 (4.20-5.40) 10^6/uL Hgb 13.3 (12.0-16.0) g/dL Hct 40.2 (37.0-47.0) % MCV 91.2 (81.0-99.0) fL MCH 30.2 (27.0-31.0) pg MCHC 33.1 (32.0-36.0) g/dL RDW 12.4 (12.0-15.0) % Plt Count 290 (130-450) 10^3/uL MPV 8.5 (7.9-10.8) fL Neut # (Auto) 9.6 H (1.5-6.6) 10^3/uL Lymph # (Auto) 0.7 L (1.5-3.5) 10^3/uL [place] # (Auto) 0.1 (0.0-1.0) 10^3/uL Eos # (Auto) 0.0 (0.0-0.7) 10^3/uL Baso # (Auto) 0.0 (0.0-0.1) 10^3/uL Absolute Nucleated RBC 0.00 x10^3/uL Nucleated RBC % 0.0 /100WBC VBG pH (7.31-7.41) Ionized Calcium (1.15-1.33) mmol/L Sodium (135-145) mmol/L Potassium 4.5 (3.5-5.0) mmol/L Chloride (101-111) mmol/L Carbon Dioxide (21-32) mmol/L Anion Gap (6-13) BUN (6-20) mg/dL Creatinine (0.4-1.0) mg/dL Estimated GFR (MDRD) (>89) Glucose (70-100) mg/dL Calcium (8.5-10.3) mg/dL Phosphorus (2.5-4.6) mg/dL Magnesium (1.7-2.8) mg/dL Nasal Adenovirus (PCR) Nasal B. parapertussis DNA (PCR) Nasal Coronavir 229E PCR Nasal Coronavir HKU1 PCR Nasal Coronavir NL63 PCR Nasal Coronavir OC43 PCR Nasal Enterovir/Rhinovir PCR Nasal Influenza B PCR Nasal Influenza A PCR Nasal Parainfluen 1 PCR Nasal Parainfluen 2 PCR Nasal Parainfluen 3 PCR Nasal Parainfluen 4 PCR Nasal RSV (PCR) Nasal Screen MRSA (PCR) POSITIVE A* (NEGATIVE) Nasal B.pertussis DNA PCR Nasal C.pneumoniae (PCR) Vicente Human Metapneumo PCR Nasal M.pneumoniae (PCR) Nasal SARS-CoV-2 (PCR) 02/05/23 Range/Units 13:40 WBC (4.8-10.8) x10^3/uL RBC (4.20-5.40) 10^6/uL Hgb (12.0-16.0) g/dL Hct (37.0-47.0) % MCV (81.0-99.0) fL MCH (27.0-31.0) pg MCHC (32.0-36.0) g/dL RDW (12.0-15.0) % Plt Count (130-450) 10^3/uL MPV (7.9-10.8) fL Neut # (Auto) (1.5-6.6) 10^3/uL Lymph # (Auto) (1.5-3.5) 10^3/uL [place] # (Auto) (0.0-1.0) 10^3/uL Eos # (Auto) (0.0-0.7) 10^3/uL Baso # (Auto) (0.0-0.1) 10^3/uL Absolute Nucleated RBC x10^3/uL Nucleated RBC % /100WBC VBG pH (7.31-7.41) Ionized Calcium (1.15-1.33) mmol/L Sodium (135-145) mmol/L Potassium (3.5-5.0) mmol/L Chloride (101-111) mmol/L Carbon Dioxide (21-32) mmol/L Anion Gap (6-13) BUN (6-20) mg/dL Creatinine (0.4-1.0) mg/dL Estimated GFR (MDRD) (>89) Glucose (70-100) mg/dL Calcium (8.5-10.3) mg/dL Phosphorus (2.5-4.6) mg/dL Magnesium (1.7-2.8) mg/dL Nasal Adenovirus (PCR) NOT DETECTED Nasal B. parapertussis DNA (PCR) NOT DETECTED Nasal Coronavir 229E PCR NOT DETECTED Nasal Coronavir HKU1 PCR NOT DETECTED Nasal Coronavir NL63 PCR NOT DETECTED Nasal Coronavir OC43 PCR NOT DETECTED Nasal Enterovir/Rhinovir PCR NOT DETECTED Nasal Influenza B PCR NOT DETECTED Nasal Influenza A PCR NOT DETECTED Nasal Parainfluen 1 PCR NOT DETECTED Nasal Parainfluen 2 PCR NOT DETECTED Nasal Parainfluen 3 PCR NOT DETECTED Nasal Parainfluen 4 PCR NOT DETECTED Nasal RSV (PCR) NOT DETECTED Nasal Screen MRSA (PCR) (NEGATIVE) Nasal B.pertussis DNA PCR NOT DETECTED Nasal C.pneumoniae (PCR) NOT DETECTED Vicente Human Metapneumo PCR NOT DETECTED Nasal M.pneumoniae (PCR) NOT DETECTED Nasal SARS-CoV-2 (PCR) NOT DETECTED
[2023-02-06 14:26] VITALS: BP 135/84
--- NOTE | 2023-02-06 15:22 | PROVIDER PROGRESS NOTE ---
Subjective - Prog Note Date Prog Note Date: 02/06/23 Prog Note Time: 15:03 - Subjective Pt reports feeling: Improved Subjective: Pt has just finished her first duoneb treatment of the day. She is feeling much improved than this morning and the breathing treatment has helped her symptoms. She no longer feels congested in the chest. Reports she ambulated around the unit earlier today without dyspnea or increased work of breathing. She is no longer on a NC and reports no dyspnea. States she has been told by 2 separate staff members that she is being discharged today and she has appointments today that she will not miss. States she will not be staying here another night. Denies fevers, chills, rhinorrhea, headaches, myalgias, chest pain, dyspnea, leg swelling today. Objective - Vital Signs/Intake & Output Reviewed Vital Signs: Yes Vital Signs: Vital Signs Temp Pulse Pulse Resp BP Pulse Ox 02/06/23 14:25 104 H 16 02/06/23 14:00 101 H 23 135/84 H 95 02/06/23 13:00 112 H 19 148/97 H 94 02/06/23 12:00 36.8 C 106 H 20 124/87 H 94 02/06/23 11:10 102 H 20 Intake & Output: Intake & Output 02/03/23 02/04/23 02/05/23 02/06/23 23:59 23:59 23:59 23:59 Intake Total 520 2380 Output Total 500 0 Balance 20 2380 - Objective General Appearance: positive: No acute distress (Speaks in full sentences without any dyspnea. No desaturation during speaking. No coughs.), Alert Eyes Bilateral: positive: Normal inspection, PERRL, EOMI ENT: positive: ENT inspection nml, Pharynx nml Neck: positive: Nml inspection, No JVD Respiratory: positive: No respiratory distress, Wheezes (Expiratory wheezing heard in the RUL.) Cardiovascular: positive: No murmur, No gallop, Tachycardia Peripheral Pulses: 2+ Radial (R), 2+ Radial (L) Extremities: positive: Non-tender, No pedal edema - Lab Results Fish Bones: 02/06/23 05:53 02/06/23 05:53 Other Labs: Lab Results x24hrs 07/10/23 07/10/23 07/10/23 Range/Units 12:07 05:53 05:53 WBC (4.8-10.8) x10^3/uL RBC (4.20-5.40) 10^6/uL Hgb (12.0-16.0) g/dL Hct (37.0-47.0) % MCV (81.0-99.0) fL MCH (27.0-31.0) pg MCHC (32.0-36.0) g/dL RDW (12.0-15.0) % Plt Count (130-450) 10^3/uL MPV (7.9-10.8) fL Neut # (Auto) (1.5-6.6) 10^3/uL Lymph # (Auto) (1.5-3.5) 10^3/uL [place] # (Auto) (0.0-1.0) 10^3/uL Eos # (Auto) (0.0-0.7) 10^3/uL Baso # (Auto) (0.0-0.1) 10^3/uL Absolute Nucleated RBC x10^3/uL Nucleated RBC % /100WBC VBG pH 7.385 (7.31-7.41) Ionized Calcium 1.22 (1.15-1.33) mmol/L Sodium 139 (135-145) mmol/L Potassium 4.4 (3.5-5.0) mmol/L Chloride 108 (101-111) mmol/L Carbon Dioxide 26 (21-32) mmol/L Anion Gap 5.0 L (6-13) BUN 18 (6-20) mg/dL Creatinine 0.7 (0.4-1.0) mg/dL Estimated GFR (MDRD) 85 L (>89) Glucose 171 H (70-100) mg/dL Calcium 9.4 (8.5-10.3) mg/dL Phosphorus 3.4 (2.5-4.6) mg/dL Magnesium 1.7 1.7 (1.7-2.8) mg/dL Nasal Screen MRSA (PCR) (NEGATIVE) 02/06/23 02/05/23 02/05/23 Range/Units 05:53 19:38 14:30 WBC 10.5 (4.8-10.8) x10^3/uL RBC 4.41 (4.20-5.40) 10^6/uL Hgb 13.3 (12.0-16.0) g/dL Hct 40.2 (37.0-47.0) % MCV 91.2 (81.0-99.0) fL MCH 30.2 (27.0-31.0) pg MCHC 33.1 (32.0-36.0) g/dL RDW 12.4 (12.0-15.0) % Plt Count 290 (130-450) 10^3/uL MPV 8.5 (7.9-10.8) fL Neut # (Auto) 9.6 H (1.5-6.6) 10^3/uL Lymph # (Auto) 0.7 L (1.5-3.5) 10^3/uL Sch[place]icher # (Auto) 0.1 (0.0-1.0) 10^3/uL Eos # (Auto) 0.0 (0.0-0.7) 10^3/uL Baso # (Auto) 0.0 (0.0-0.1) 10^3/uL Absolute Nucleated RBC 0.00 x10^3/uL Nucleated RBC % 0.0 /100WBC VBG pH (7.31-7.41) Ionized Calcium (1.15-1.33) mmol/L Sodium (135-145) mmol/L Potassium 4.5 (3.5-5.0) mmol/L Chloride (101-111) mmol/L Carbon Dioxide (21-32) mmol/L Anion Gap (6-13) BUN (6-20) mg/dL Creatinine (0.4-1.0) mg/dL Estimated GFR (MDRD) (>89) Glucose (70-100) mg/dL Calcium (8.5-10.3) mg/dL Phosphorus (2.5-4.6) mg/dL Magnesium (1.7-2.8) mg/dL Nasal Screen MRSA (PCR) POSITIVE A* (NEGATIVE) Assessment/Plan - Problem List (1) Exacerbation of asthma Impression: Pt reports improvement of symptoms since this morning. Per RN she ambulated in the sanchez with pulse ox - lowest being 92%. She has not been on supplemental oxygen since 10 am but sating within normal limits. She has just finished her first DuoNeb today. Oxygen saturation in room while interview was 97% RA with pulse at 106. She is speaking in full sentences without dyspnea. Improvement of lung auscultation - wheezing in the right upper lobe. Continue DuoNeb, budesonide, perforomist 4 times a day, singular once daily, albuterol prn. Gwendolyn Figueroa with [facility] [phone] is DPOA. Contacted by SW today and Gwendolyn stated "at this time patient is still deemed decisional until other casey stated by medical professional." Qualifiers: Asthma severity: severe Asthma persistence: persistent Qualified Code(s): J45.51 - Severe persistent asthma with (acute) exacerbation
--- NOTE | 2023-02-06 18:18 | DISCHARGE SUMMARY ---
"Discharge Summary Admit Date: 02/05/23 Discharge Date: 02/06/23 Discharging Provider: Aleja Howard MD Primary Care Provider: Ras Yang MD Code Status: Do Not Attempt Resuscitation Condition at Discharge: Fair Discharge Disposition: Against Medical Advice - DIAGNOSES Discharge Diagnoses with Status of Each Condition: Acute respiratory failure with hypoxia and hypercapnia Exacerbation of persistent asthma Depression with anxiety Warnicke's encephalopathy Hypertension Peripheral neuropathy - HPI History of Present Illness: She has been seen twice in the ER for asthma exacerbation in the last couple weeks. She now presents with a third exacerbation so severe that the ER provider was wondering if there can have to intubate her. This patient has a complicated history. She has had a long history of asthma and COPD exacerbation. Numerous hospitalizations throughout the [place] area. Unfortu nately this patient was deemed incapacitated enough to be an involuntary admission to [facility] in 2020. From [facility] she went to a alf facility. From there she went to her jail in [place]. She has been clean and sober for about 18 months until November of this year and acquaintance of hers brought her a bottle of vodka to the jail. She became intoxicated and then again had to be admitted to the hospital. She was also admitted to [facility] for asthma exacerbation. Somewhere between September and now she has managed to get herself a straightedge machine operator helper. She has been erratic in her compliance but the diagnosis is eosinophilic asthma. She usually responds to steroids, bronchodilators. She is also supposed to be picking up a monoclonal biologic such as Fasenra. It may be a different drug. Her straightedge machine operator helper is already called into the pharmacy but she has not picked it up. Patient was in the hospital less than 24 hours. Please see detailed history and physical. Please also read today's note which is very detailed about what been going on with this patient. - CONSULTS | PROCEDURES Procedures: No acute cardiopulmonary process - HOSPITAL COURSE Hospital Course: Patient was stabilized with frequent DuoNebs, steroid burst. No antibiotics were needed since it was not an infiltrate. It became clear, after reviewing the old medical records and speaking to her power of trademark attorney, that the patient has been most likely noncompliant with medications. The patient has left her jail. Disappeared for about 3 days in November. She called her father from the jail and he came and [place]. [place]. She is supposed to be on a LABA, short acting bronchodilator, long-acting inhaled steroid, leukotriene Mastel stabilizer, and she has an interleukin monoclonal antibody drug waiting for her at the pharmacy to be used. But her father is giving her her meds and she is not on nebulizers. She is only using handheld. Even though the medicine has been waiting at the pharmacy she has not picked it up. She is taking her prednisone 10 mg. Her father is also weaned her off gabapentin, and Seroquel. When she was stabilized, and feeling much better, she was insistent on leaving. I was hoping to keep her 1 more day since there was still some wheezing. I also wanted to make sure that she understood that she needed to orange picker certain medications and see her straightedge machine operator helper in follow-up. But she was insistent that she had an trademark attorney meeting at 4 PM today. She does not. She was also insistent that she was going to take a cab to her house in [place]. I did speak to her power of trademark attorney, Gwendolyn Figueroa at [facility]. feels that that she is going to have to do an adult protective service referral. As such the patient has left AGAINST MEDICAL ADVICE. No change in medication at this time. When she was discharged pulse was 101, blood pressure 135/84, respirations 23. 95% on room air . She was wheezing. But she was not tripoding, able to get up and walk around the room, get dressed, put on her shoes, pace a bit without respiratory distress. This document was made in part using voice recognition software. While efforts are made to proofread this document, sound alike and grammatical errors may occur. - ALLERGIES Allergies/Adverse Reactions: Allergies Allergy/AdvReac Type Severity Reaction Status Date / Time No Known Drug Allergies Allergy Verified 01/30/23 12:52 - MEDICATIONS Home Medications: Ambulatory Orders Medication Instructions Recorded Confirmed Albuterol Sulf [Ventolin Hfa 1 - 2 puffs INH Q4HR PRN #1 each 01/24/23 02/05/23 Inhaler] Cholecalciferol (Vitamin D3) 50 mcg PO DAILY 01/24/23 02/05/23 [Vitamin D3] DULoxetine [Cymbalta] 60 mg PO DAILY 01/24/23 02/05/23 Melatonin 5 mg PO HS 01/24/23 02/05/23 Prednisone [Brandon] 10 mg PO DAILY 01/24/23 02/05/23 Thiamine [Vitamin B-1] 100 mg PO DAILY 01/24/23 02/05/23 Trazodone HCl 150 mg ORAL HS 01/24/23 02/05/23 diphenhydrAMINE [Benadryl] 25 mg PO QPM 01/24/23 02/05/23 Ipratropium [Atrovent] 2 puffs INH Q6H #12.9 gm 01/30/23 02/05/23 Fluticasone/Vilanterol [Breo 1 puffs INH DAILY 02/05/23 02/05/23 Ellipta 200-25 Mcg INH] Gabapentin [Neurontin] 900 mg PO QPM 02/05/23 02/05/23 - LABS Result Diagrams: 02/06/23 05:53 02/06/23 05:53"
== END 2023-02-06 16:30 | disposition left against medical advice (07) ==
LOC: ED 12:04 → ICU 13:25
PROVIDERS: ADMIT Specialist; ATTEND Specialist
DX: J96.01 Acute respiratory failure with hypoxia (principal); J96.02 Acute respiratory failure with hypercapnia; J45.51 Severe persistent asthma with (acute) exacerbation; J82.83 Eosinophilic asthma; I10 Essential (primary) hypertension; G62.9 Polyneuropathy, unspecified; D72.829 Elevated white blood cell count, unspecified; F32.A Depression, unspecified; F41.9 Anxiety disorder, unspecified; G47.00 Insomnia, unspecified; E51.2 Wernicke's encephalopathy; R00.0 Tachycardia, unspecified; Z20.822 Contact with and (suspected) exposure to COVID-19; Z66 Do not resuscitate; Z79.899 Other long term (current) drug therapy; Z82.49 Family history of ischemic heart disease and other diseases of the circulatory system; Z87.891 Personal history of nicotine dependence
CPT/HCPCS: 36415; 36600; 71045; 80048; 80053; 82330; 82803; 83690; 83735; 83880; 84100; 84132; 85025; 87150; 87633; 93005; 94640; 96374; 96375; 96376; 99285; 99291; A9270; G0378; J2060; J7626

== ENCOUNTER 2023-10-21 15:24 | Outpatient (CLI) | payer OTHER ==
[2023-10-21 15:45] LABS: BASOPHILS # (AUTO) 0.1 10^3/uL (0.0-0.1); BASOPHILS % (AUTO) 0.9 %; EOSINOPHILS # (AUTO) 0.1 10^3/uL (0.0-0.7); EOSINOPHILS % (AUTO) 1.2 %; HCT - HEMATOCRIT 40.7 % (37.0-47.0); HGB - HEMOGLOBIN 13.3 g/dL (12.0-16.0); LYMPHOCYTES # (AUTO) 1.5 10^3/uL (1.5-3.5); LYMPHOCYTES % (AUTO) 18.8 %; MEAN CORPUSCULAR HEMOGLOBIN 31.1 pg (27.0-31.0); MEAN CORPUSCULAR HGB CONC 32.7 g/dL (32.0-36.0); MEAN CORPUSCULAR VOLUME 95.1 fL (81.0-99.0); MEAN PLATELET VOLUME 8.3 fL (7.9-10.8); MONOCYTES # (AUTO) 0.5 10^3/uL (0.0-1.0); MONOCYTES % (AUTO) 6.4 %; NEUTROPHILS # (AUTO) 5.9 10^3/uL (1.5-6.6); NEUTROPHILS % (AUTO) 72.5 %; PLT - PLATELET COUNT 299 10^3/uL (130-450); RED BLOOD COUNT 4.28 10^6/uL (4.20-5.40); RED CELL DISTRIBUTION WIDTH 13.6 % (12.0-15.0); WHITE BLOOD COUNT 8.2 x10^3/uL (4.8-10.8)
[2023-10-21 16:01] LABS: ALBUMIN 4.2 g/dL (3.2-5.5); ALBUMIN/GLOBULIN RATIO 1.6 (1.0-2.2); ALKALINE PHOSPHATASE 81 IU/L (42-121); ALT ALANINE AMINOTRANSFERASE 17 IU/L (10-60); AST ASPARTATE AMINOTRANSFERASE 18 IU/L (10-42); BILIRUBIN,TOTAL 0.5 mg/dL (0.2-1.0); BUN - BLOOD UREA NITROGEN 15 mg/dL (6-20); CALCIUM 9.8 mg/dL (8.5-10.3); CARBON DIOXIDE - CO2 26 mmol/L (21-32); CHLORIDE 103 mmol/L (101-111); CHOL/HDL RATIO 3.6 (<4.4); CHOLESTEROL 242 mg/dL; CREATININE 0.9 mg/dL (0.6-1.3); GFR - MDRD 63 (>89); GLUCOSE 114 mg/dL (74-104); HDL CHOLESTEROL 68 mg/dL; LDL CHOLESTEROL,CALCULATED 133 mg/dL; POTASSIUM 4.1 mmol/L (3.5-4.5); SODIUM 137 mmol/L (135-145); TOTAL PROTEIN 6.9 g/dL (6.4-8.9); TRIGLYCERIDES 205 mg/dL (48-352); VLDL CHOLESTEROL 41 mg/dL
[2023-10-21 16:14] LABS: THYROID STIMULATING HORMONE 1.11 uIU/mL (0.34-5.60)
[2023-10-21 20:27] LABS: ESTIMATED AVERAGE GLUCOSE 120 mg/dL (70-100); HEMOGLOBIN A1c% 5.8 % (4.27-6.07)
== END 2023-10-21 15:25 | disposition home or self-care (01) ==
LOC: LAB 15:24
PROVIDERS: ATTEND Physician Assistant Medical
DX: Z13.9 Encounter for screening, unspecified (principal)
CPT/HCPCS: 36415; 80053; 80061; 82306; 83036; 83721; 84443; 85025

== ENCOUNTER 2024-02-24 03:43 | Outpatient (CLI) | payer OTHER | END 2024-02-24 23:59 | disposition EMS.NT | LOC: EMS 03:43 | DX: F10.90 Alcohol use, unspecified, uncomplicated (principal) ==

== ENCOUNTER 2024-07-26 17:32 | Observation (INO) ==
--- NOTE | 2024-07-26 18:01 | ED Physician Documentation ---
PD HPI DYSPNEA Stated complaint Stated Complaint: SOA Chief complaint Chief Complaint: Resp Additional information Additional information: 64-year-old female with history of COPD, asthma, acute respiratory failure with hypoxia, alcohol dependence presents emergency department via EMS from assisted living facility for increased shortness of breath and work of breathing. Patient says that she recently ran out of her albuterol inhaler which she normally takes at home to help with the symptoms but recently ran out. She said that she is been having increased cough with congestion for about the last week or so coughing up bright green phlegm but afebrile. No runny nose. On getting paperwork from patient's assisted living facility saying that patient has been refusing breathing treatments when asked the patient why she has been refusing breathing treatments patient says that she has never been offered a breathing treatment and is unsure where this is coming from. Meds/Allgy Home Medications Ambulatory Orders Medication Instructions Recorded Confirmed albuterol sulfate 90 mcg/actuation 1 - 2 puff inhalation Q4HR PRN 01/24/23 02/05/23 aerosol inhaler (Ventolin HFA) Shortness Of Air/Wheezing #1 ea cholecalciferol (vitamin D3) 50 50 mcg PO DAILY 01/24/23 02/05/23 mcg (2,000 unit) capsule diphenhydramine HCl 25 mg capsule 25 mg PO QPM 01/24/23 02/05/23 (Banophen) duloxetine 60 mg capsule,delayed 60 mg PO DAILY 01/24/23 02/05/23 release melatonin 5 mg tablet,immediate 5 mg PO HS 01/24/23 02/05/23 and extended release prednisone 5 mg tablet,delayed 10 mg PO DAILY 01/24/23 02/05/23 release (Brandon) thiamine mononitrate (vit B1) 100 100 mg PO DAILY 01/24/23 02/05/23 mg tablet (Vitamin B-1 (mononitrate)) trazodone 150 mg tablet 150 mg ORAL HS 01/24/23 02/05/23 ipratropium bromide 17 2 puff inhalation Q6H #12.9 grams 01/30/23 02/05/23 mcg/actuation HFA aerosol inhaler (Atrovent HFA) fluticasone furoate 200 1 puff inhalation DAILY 02/05/23 02/05/23 mcg-vilanterol 25 mcg/dose inhalation powder (Breo Ellipta) gabapentin 300 mg capsule 900 mg PO QPM 02/05/23 02/05/23 naltrexone 50 mg tablet 50 mg PO QDAY #30 tabs 07/09/24 Allergies Allergies Allergy/AdvReac Type Severity Reaction Status Date / Time No Known Drug Allergies Allergy Verified 07/26/24 17:44 [facility] Social History Social History Smoking Status: Former smoker Number of Years Smoked: 5 Do you dip or chew tobacco?: No Do you vape?: No Patient requests smoking cessation consult: No Initiate information on smoking cessation: No Living arrangement: At home Living Condition: With family Level: Assisted Home Mobility Equipment: Walker Do you feel safe in your home environment?: Yes Suffered physical, verbal, emotional, or financial abuse?: No History of Abuse: No POLST Patient has POLST: No POLST Status: DNR (on advanced directive) Exam Constitutional abnormal general appearance (disheveled), (chronically ill) and (appears older than stated age), no apparent distress, no limitations and alert HENMT normocephalic Eyes PERRL Chest inspection of chest normal Respiratory ronchi throughout Cardiovascular normal heart rate noted and regular rhythm noted Gastrointestinal abdomen normal to inspection Extremities normal to inspection and normal to palpation Skin skin color normal and no rash Results Vitals Vitals: Vital Signs - 24 hr 07/26/24 17:41 07/26/24 17:44 07/26/24 19:42 Temperature 36.2 C L Temperature Source Temporal Artery Scan Pulse Rate 96 Respiratory Rate 28 H Blood Pressure 123/89 O2 Saturation 96 Oxygen Delivery Method Nasal Cannula O2 Source duoneb treatment If not protocol: Oxygen Flow, liters/minute 3 Pain Intensity 0 8 07/26/24 20:07 Temperature Temperature Source Pulse Rate 89 Respiratory Rate 18 Blood Pressure 141/93 H O2 Saturation 97 Oxygen Delivery Method O2 Source Nasal cannula If not protocol: Oxygen Flow, liters/minute 3 Pain Intensity 7 Oxygen O2 Source Nasal cannula Labs Labs: Laboratory Tests 07/26/24 18:24 WBC 8.4 RBC 4.23 Hgb 13.5 Hct 40.9 MCV 96.7 MCH 31.9 H MCHC 33.0 RDW 14.1 Plt Count 247 MPV 8.8 Neut # (Auto) 6.3 Lymph # (Auto) 1.2 L [place] # (Auto) 0.4 Eos # (Auto) 0.5 Baso # (Auto) 0.1 Absolute Nucleated RBC 0.00 Nucleated RBC % 0.0 Sodium 139 Potassium 3.9 Chloride 103 Carbon Dioxide 29 Anion Gap 7.0 BUN 6 Creatinine 0.9 Estimated GFR (MDRD) 63 L Glucose 187 H Calcium 9.5 Total Bilirubin 0.7 AST 9 L ALT 12 Alkaline Phosphatase 78 Total Protein 6.7 Albumin 4.1 Globulin 2.6 Albumin/Globulin Ratio 1.6 Lipase < 10 L Rads (name of study) Chest x-ray: Relevant Findings:: Final report received and EMP independent interpretation of test Interpretation: IMPRESSION: No acute cardiopulmonary process. PD Medical Decision Making ED course ED course: 64-year-old female presents to the emergency department via EMS for increased work of breathing and shortness of breath. Patient is normally on room air here in emergency department she is on 3 to 4 L of supplemental oxygen. She received 125 mg of Medrol and route via EMS, she received a DuoNeb treatment here in the emergency department upon initial arrival as well as was started on doxycycline. Chest x-ray was complete for further evaluation did not reveal any acute cardiopulmonary abnormalities or findings, No pneumonia no fluid volume overload. Patient denies any chest pain making less suspicious or concern for possible acute coronary syndrome. After she has received medications including steroids and breathing treatment we attempted to ambulate the patient on room air and unfortunately her oxygen saturation dropped to 87%. Given that she does not have oxygen at home I do not feel comfortable discharging her at this time. Labs are also complete for further evaluation she has no leukocytosis no anemia no electrolyte abnormalities. I spoke with the on-call telemetry hospitalist Dr. Gonzalez who is asked me to do a respiratory swab for further evaluation of patient's cough and shortness of breath. This was complete in the emergency department he has graciously agreed to admit the patient for acute respiratory failure with hypoxia for COPD and asthma exacerbation. Patient was recently admitted to [facility] for similar symptoms. Patient is agreeable to be admitted grateful for the care. Discharge Plan Discharge Patient Disposition: 66 [facility] DC/Xfer Condition: Good Clinical Impression: Asthma, Acute exacerbation of COPD with asthma, Acute hypoxic respiratory failure Prescriptions: No Action naltrexone 50 mg tablet 50 mg PO QDAY Qty: 30 1RF Rx Instructions: Pt. should make a follow up appointment w/ PCP. Naltraxone has been refilled(tablets are the only form they come in) for 30 days, with 1 refill. diphenhydramine HCl [Banophen] 25 MG capsule 25 mg PO QPM trazodone 150 MG tablet 150 mg ORAL HS duloxetine 60 MG capsule,delayed release(DR/EC) 60 mg PO DAILY cholecalciferol (vitamin D3) 50 MCG capsule 50 mcg PO DAILY thiamine mononitrate (vit B1) [Vitamin B-1 (mononitrate)] 100 MG tablet 100 mg PO DAILY prednisone [Brandon] 5 MG tablet,delayed release (DR/EC) 10 mg PO DAILY melatonin 5 MG tablet, IR and ER, biphasic 5 mg PO HS albuterol sulfate [Ventolin HFA] 200 PUFFS/18 GM HFA aerosol inhaler 1 - 2 puff inhalation Q4HR PRN (Reason: Shortness Of Air/Wheezing) Qty: 1 0RF ipratropium bromide [Atrovent HFA] 200 PUFFS HFA aerosol inhaler 2 puff inhalation Q6H Qty: 12.9 0RF gabapentin 300 MG capsule 900 mg PO QPM fluticasone furoate-vilanterol [Breo Ellipta] 1 EACH blister with device 1 puff inhalation DAILY Print Language: Sammarinese
[2024-07-26 18:28] LABS: BASOPHILS # (AUTO) 0.1 10^3/uL (0.0-0.1); BASOPHILS % (AUTO) 0.6 %; EOSINOPHILS # (AUTO) 0.5 10^3/uL (0.0-0.7); EOSINOPHILS % (AUTO) 6.2 %; HCT - HEMATOCRIT 40.9 % (37.0-47.0); HGB - HEMOGLOBIN 13.5 g/dL (12.0-16.0); LYMPHOCYTES # (AUTO) 1.2 10^3/uL (1.5-3.5); LYMPHOCYTES % (AUTO) 13.9 %; MEAN CORPUSCULAR HEMOGLOBIN 31.9 pg (27.0-31.0); MEAN CORPUSCULAR VOLUME 96.7 fL (81.0-99.0); MEAN PLATELET VOLUME 8.8 fL (7.9-10.8); MONOCYTES # (AUTO) 0.4 10^3/uL (0.0-1.0); MONOCYTES % (AUTO) 4.3 %; NEUTROPHILS # (AUTO) 6.3 10^3/uL (1.5-6.6); NEUTROPHILS % (AUTO) 74.6 %; PLT - PLATELET COUNT 247 10^3/uL (130-450); RED BLOOD COUNT 4.23 10^6/uL (4.20-5.40); RED CELL DISTRIBUTION WIDTH 14.1 % (12.0-15.0); WHITE BLOOD COUNT 8.4 x10^3/uL (4.8-10.8)
--- NOTE | 2024-07-26 18:42 | XRAY Report ---
PROCEDURE: XR Chest 1V INDICATIONS: SOA TECHNIQUE: One view of the chest was acquired. COMPARISON: 02/05/2023 FINDINGS: Surgical changes and devices: None. Lungs and pleura: No pleural effusions or pneumothorax. No consolidation. Mediastinum: Mediastinal contours appear normal. Heart size is normal. Bones and chest wall: No suspicious bony lesions. Overlying soft tissues appear unremarkable. IMPRESSION: No acute cardiopulmonary process. Reviewed by: Vineet Santana MD on 07/26/2024 6:41 PM PST Approved by: Vineet Santana MD on 07/26/2024 6:41 PM [facility] Station ID: [id number]
[2024-07-26 18:56] LABS: ALBUMIN 4.1 g/dL (3.2-5.5); ALBUMIN/GLOBULIN RATIO 1.6 (1.0-2.2); ALKALINE PHOSPHATASE 78 IU/L (42-121); ALT ALANINE AMINOTRANSFERASE 12 IU/L (10-60); AST ASPARTATE AMINOTRANSFERASE 9 IU/L (10-42); BILIRUBIN,TOTAL 0.7 mg/dL (0.2-1.0); BUN - BLOOD UREA NITROGEN 6 mg/dL (6-20); CALCIUM 9.5 mg/dL (8.5-10.3); CARBON DIOXIDE - CO2 29 mmol/L (21-32); CHLORIDE 103 mmol/L (101-111); CREATININE 0.9 mg/dL (0.6-1.3); GFR - MDRD 63 (>89); GLUCOSE 187 mg/dL (74-104); LIPASE < 10 U/L (11-82); POTASSIUM 3.9 mmol/L (3.5-4.5); SODIUM 139 mmol/L (135-145); TOTAL PROTEIN 6.7 g/dL (6.4-8.9)
[2024-07-26] MEDS: DOXYCYCLINE 100 MG TABLET PO STA (19:01)
[2024-07-26] MEDS: ACETAMINOPHEN 500 MG TABLET PO STA (19:42)
[2024-07-26] MEDS ORDERED: BENZONATATE 100 MG CAPSULE PO PRN (20:26)
[2024-07-26] MEDS ORDERED: ONDANSETRON 4 MG/2 ML VIAL IVP PRN (20:26)
--- NOTE | 2024-07-26 20:38 | HISTORY & PHYSICAL EXAMINATION ---
Chief Complaint Chief Complaint Chief Complaint: sob, dyspnea History of Present Illness History of Present Illness HPI Comment/Other: pt with h/o asthma, possible copd (denies formal dx) presents with sob x 2 days. no fevers or chills. no chest pain. pt reportes productive cough as well. states ran out of albuterol inhaler for 2 days, but [facility]dc reported that she's been declining her breathing treatments. pt has had h/o hospitalizations in the past for respiratory failure. no recent travel. quit smoking 5yr ago and states smoked 2 cigarettes per day on average x 3 yr. no dysuria or hematuria. states stools feel loose and has them twice daily. no abd pain. no falls. no ams. states some [employer] workers may be sick. Review of Systems Status of ROS: 10 or more systems reviewed and unremarkable except as noted in history and below PFSH Social History Social History Smoking Status: Former smoker Number of Years Smoked: 5 Do you dip or chew tobacco?: No Do you vape?: No Patient requests smoking cessation consult: No Initiate information on smoking cessation: No Living arrangement: At home Living Condition: With family Level: Assisted Home Mobility Equipment: Walker Do you feel safe in your home environment?: Yes Suffered physical, verbal, emotional, or financial abuse?: No History of Abuse: No POLST Patient has POLST: No POLST Status: DNR (on advanced directive) Meds/Allgy Home Medications Ambulatory Orders Medication Instructions Recorded Confirmed albuterol sulfate 90 mcg/actuation 1 - 2 puff inhalation Q4HR PRN 01/24/23 02/05/23 aerosol inhaler (Ventolin HFA) Shortness Of Air/Wheezing #1 ea cholecalciferol (vitamin D3) 50 50 mcg PO DAILY 01/24/23 02/05/23 mcg (2,000 unit) capsule diphenhydramine HCl 25 mg capsule 25 mg PO QPM 01/24/23 02/05/23 (Banophen) duloxetine 60 mg capsule,delayed 60 mg PO DAILY 01/24/23 02/05/23 release melatonin 5 mg tablet,immediate 5 mg PO HS 01/24/23 02/05/23 and extended release prednisone 5 mg tablet,delayed 10 mg PO DAILY 01/24/23 02/05/23 release (Brandon) thiamine mononitrate (vit B1) 100 100 mg PO DAILY 01/24/23 02/05/23 mg tablet (Vitamin B-1 (mononitrate)) trazodone 150 mg tablet 150 mg ORAL HS 01/24/23 02/05/23 ipratropium bromide 17 2 puff inhalation Q6H #12.9 grams 01/30/23 02/05/23 mcg/actuation HFA aerosol inhaler (Atrovent HFA) fluticasone furoate 200 1 puff inhalation DAILY 02/05/23 02/05/23 mcg-vilanterol 25 mcg/dose inhalation powder (Breo Ellipta) gabapentin 300 mg capsule 900 mg PO QPM 02/05/23 02/05/23 naltrexone 50 mg tablet 50 mg PO QDAY #30 tabs 07/09/24 Allergies Allergies Allergy/AdvReac Type Severity Reaction Status Date / Time No Known Drug Allergies Allergy Verified 07/26/24 17:44 Exam Constitutional normal general appearance and no apparent distress HENMT normocephalic and hearing grossly normal bilaterally Eyes EOMs intact bilaterally Neck/C-Spine visual inspection normal Chest inspection of chest normal Respiratory details per ed charting Cardiovascular details per ed charting Gastrointestinal nondistended Neurology no movement abnormality noted, no focal motor deficit noted, speech normal and GCS 15 Conclusion/Plan Problem List (1) Acute hypoxic respiratory failure: Plan pt with - - acute hypoxemic resp failure copd / asthma exacerbation h/o hospitalizations for same pt was apparently out of albuterol inh x 2 days on o2 via nc at this time, feeling better no obvious infiltrated on cxr check viral panel, inhalers/neb, o2, prednisone, supportive mgmt - hyperglycemia exacerbated d/t above + steroid given in ED no reported h/o t2dm check a1c, tsh, lipids monitor in setting of continued steroid usage - elevated bp in setting of above not currently on bp meds monitor for now f/u labs, replete electrolytes further orders per clinical course Lab Results 07/26/24 18:24 07/26/24 18:24
[2024-07-26 20:52] LABS: CHOL/HDL RATIO 2.5 (<4.4); CHOLESTEROL 123 mg/dL; HDL CHOLESTEROL 50 mg/dL; LDL CHOLESTEROL,CALCULATED 54 mg/dL; LDL/HDL RATIO 1.1 (<4.4); TRIGLYCERIDES 96 mg/dL; VLDL CHOLESTEROL 19 mg/dL
[2024-07-26 20:56] LABS: ESTIMATED AVERAGE GLUCOSE 148 mg/dL (70-100); HEMOGLOBIN A1c% 6.8 % (4.27-6.07)
[2024-07-26] MEDS ORDERED: ALBUTEROL NEB 2.5 MG/3 ML INH PRN (20:57)
[2024-07-26 21:03] LABS: THYROID STIMULATING HORMONE 0.64 uIU/mL (0.34-5.60)
[2024-07-26 21:51] LABS: B. PARAPERTUSSIS- RESP PCR PAN NOT DETECTED; B. PERTUSSIS- RESP PCR PANEL NOT DETECTED; C. PNEUMONIAE- RESP PCR PANEL NOT DETECTED; CORONAVIRUS 229E-RESP PCR NOT DETECTED; CORONAVIRUS HKU1-RESP PCR NOT DETECTED; CORONAVIRUS NL63-RESP PCR NOT DETECTED; CORONAVIRUS OC43-RESP PCR NOT DETECTED; HUMAN METAPNEUMOVIRUS NOT DETECTED; INFLUENZA A- RESP PCR PANEL NOT DETECTED; INFLUENZA B - RESP PCR PANEL NOT DETECTED; M. PNEUMONIAE- RESP PCR PANEL NOT DETECTED; PARAINFLUENZA VIRUS 1 NOT DETECTED; PARAINFLUENZA VIRUS 2 NOT DETECTED; PARAINFLUENZA VIRUS 4 NOT DETECTED; RHINOVIRUS/ENTEROVIRUS NOT DETECTED; RSV- RESP PCR PANEL NOT DETECTED; SARS-CoV-2 -RESP PCR PANEL NOT DETECTED
[2024-07-26] MEDS ORDERED: MIN OIL/DIMETHICON/COCONUT OIL 92 GM TUBE TOP PRN (22:39)
[2024-07-26] MEDS ORDERED: BACITRACIN ZINC OINT 1 PACKET TOP PRN (22:39)
[2024-07-26] MEDS: MELATONIN 5 MG PO SCH (23:01)
[2024-07-26] MEDS: guaiFENesin 600 MG TABLET PO SCH (23:02)
[2024-07-26] MEDS: traZODone 50 MG TABLET PO PRN (23:55)
[2024-07-26] MEDS: NYSTATIN POWDER 15 GM TOP SCH (23:55)
[2024-07-27] MEDS: IPRATROPIUM 0.2 MG/ML NEB INH SCH (01:07)
[2024-07-27 05:28] LABS: BASOPHILS % (AUTO) 0.1 %; HCT - HEMATOCRIT 41.8 % (37.0-47.0); HGB - HEMOGLOBIN 13.5 g/dL (12.0-16.0); LYMPHOCYTES # (AUTO) 0.5 10^3/uL (1.5-3.5); LYMPHOCYTES % (AUTO) 6.7 %; MEAN CORPUSCULAR HEMOGLOBIN 31.6 pg (27.0-31.0); MEAN CORPUSCULAR HGB CONC 32.3 g/dL (32.0-36.0); MEAN CORPUSCULAR VOLUME 97.9 fL (81.0-99.0); MEAN PLATELET VOLUME 9.1 fL (7.9-10.8); MONOCYTES # (AUTO) 0.1 10^3/uL (0.0-1.0); MONOCYTES % (AUTO) 0.8 %; NEUTROPHILS # (AUTO) 6.5 10^3/uL (1.5-6.6); PLT - PLATELET COUNT 281 10^3/uL (130-450); RED BLOOD COUNT 4.27 10^6/uL (4.20-5.40); RED CELL DISTRIBUTION WIDTH 13.9 % (12.0-15.0); WHITE BLOOD COUNT 7.1 x10^3/uL (4.8-10.8)
[2024-07-27 05:47] LABS: ALBUMIN 4.1 g/dL (3.2-5.5); ALBUMIN/GLOBULIN RATIO 1.5 (1.0-2.2); BILIRUBIN,TOTAL 0.7 mg/dL (0.2-1.0); CALCIUM 9.5 mg/dL (8.5-10.3); MAGNESIUM 1.7 mg/dL (1.7-2.3); POTASSIUM 4.8 mmol/L (3.5-4.5); TOTAL PROTEIN 6.8 g/dL (6.4-8.9)
--- NOTE | 2024-07-27 07:22 | PROVIDER PROGRESS NOTE ---
Subjective Prog Note Date Prog Note Date: 07/27/24 Prog Note Time: 07:19 Subjective Pt reports feeling: Improved Subjective: She is feeling better this AM. She has been off Nucala for 2-3 months. She was to see her pulmonlogist in [place], but has not done so. RT at beside, able to decrease O2 from 4L to 3L She lives at [place]. She states that she has not had any alcohol in quite some time. Current Medications Current Medications Current Medications: Current Medications Generic Name Dose Route Start Last Admin Trade Name Freq PRN Reason Stop Dose Admin Acetaminophen 650 mg 07/26/24 20:26 Acetaminophen 325 Mg Tablet PO Q6H PRN pain, fever Albuterol 2.5 mg 07/26/24 20:57 Albuterol Neb 2.5 Mg/3 Ml INH RTQ4H PRN Shortness of Air/Wheezing Ascorbic Acid 500 mg 07/27/24 09:00 Ascorbic Acid 500 Mg Tablet PO DAILY JESUS Bacitracin 1 packet 07/26/24 22:39 Bacitracin Zinc Oint 1 Packet TOP PRN PRN Skin Care Benzonatate 100 mg 07/26/24 20:26 Benzonatate 100 Mg Capsule PO TID PRN Cough Budesonide 0.5 mg 07/27/24 07:00 Budesonide 0.5 Mg/2 Ml Neb INH RTBID JESUS Cholecalciferol 50 mcg 07/27/24 09:00 Cholecalciferol 25 Mcg Tablet PO DAILY JESUS Duloxetine HCl 60 mg 07/27/24 09:00 Duloxetine 60 Mg Capsule PO DAILY JESUS Enoxaparin Sodium 40 mg 07/27/24 09:00 Enoxaparin 40 Mg/0.4 Ml Syringe SUBQ DAILY JESUS Formoterol Fumarate 20 mcg 07/27/24 07:00 Formoterol Fumarate Neb 20 Mcg/2 Ml INH RTBID JESUS Guaifenesin 600 mg 07/26/24 22:00 07/26/24 23:02 Guaifenesin 600 Mg Tablet PO 600 mg BID JESUS Administration Ipratropium [place] 0.5 mg 07/27/24 01:00 07/27/24 01:07 Ipratropium 0.2 Mg/Ml Neb INH Not Given RTQ6H JESUS Melatonin 6 mg 07/27/24 21:00 Melatonin 3 Mg Tablet PO HS JESUS Mineral Oil 1 applic 07/26/24 22:39 Min Oil/Dimethicon/Coconut Oil 92 Gm Tube TOP PRN PRN Skin Care Multivitamins/Minerals 1 tab 07/27/24 08:00 Multivitamin W/Minerals Tablet PO DAILYWM JESUS Nystatin 1 applic 07/26/24 23:45 07/26/24 23:55 Nystatin Powder 15 Gm TOP 1 applic BID JESUS Administration Ondansetron HCl 4 mg 07/26/24 20:26 Ondansetron 4 Mg/2 Ml Vial IVP Q8H PRN Nausea / Vomiting Naltrexone 50 Mg 1 each 07/27/24 09:00 Tablet PO DAILY JESUS Prednisone 20 mg 07/27/24 09:00 Prednisone 20 Mg Tablet PO 07/30/24 08:59 DAILY JESUS Thiamine HCl 100 mg 07/27/24 09:00 Thiamine 100 Mg Tablet PO DAILY JESUS Trazodone HCl 150 mg 07/26/24 23:04 07/26/24 23:55 Trazodone 50 Mg Tablet PO 150 mg HS PRN Administration sleep Zinc Sulfate 220 mg 07/27/24 09:00 Zinc Sulfate 220 Mg Capsule PO DAILY [facility] Objective Vital Signs/Intake & Output Reviewed Vital Signs: Yes Vital Signs: Vital Signs x48h Temp Pulse Resp BP Pulse Ox O2 Flow Rate 07/27/24 05:00 36.3 C L 74 18 124/77 95 4 07/27/24 00:03 36.9 C 83 20 139/72 H 92 4 Intake & Output: Intake & Output 07/24/24 07/25/24 07/26/24 07/27/24 23:59 23:59 23:59 23:59 Intake Total 280 / 280 Balance 280 / 280 Weight (kg) 108 kg Objective General Appearance: positive No acute distress and Alert Eyes Bilateral: positive Normal inspection ENT: positive ENT inspection nml Neck: positive Nml inspection Respiratory: positive Chest non-tender, No respiratory distress and Wheezes (left) Cardiovascular: positive Regular rate & rhythm Abdomen: positive No distention Skin: positive Color nml Extremities: positive No pedal edema Neurologic/Psychiatric: positive Oriented x3 Lab Results 07/27/24 05:04 07/27/24 05:04 Other Labs: Lab Results x24hrs 07/27/24 07/26/24 07/26/24 Range/Units 05:04 20:53 18:24 WBC 7.1 8.4 (4.8-10.8) x10^3/uL RBC 4.27 4.23 (4.20-5.40) 10^6/uL Hgb 13.5 13.5 (12.0-16.0) g/dL Hct 41.8 40.9 (37.0-47.0) % MCV 97.9 96.7 (81.0-99.0) fL MCH 31.6 H 31.9 H (27.0-31.0) pg MCHC 32.3 33.0 (32.0-36.0) g/dL RDW 13.9 14.1 (12.0-15.0) % Plt Count 281 247 (130-450) 10^3/uL MPV 9.1 8.8 (7.9-10.8) fL Neut # (Auto) 6.5 6.3 (1.5-6.6) 10^3/uL Lymph # (Auto) 0.5 L 1.2 L (1.5-3.5) 10^3/uL [place] # (Auto) 0.1 0.4 (0.0-1.0) 10^3/uL Eos # (Auto) 0.0 0.5 (0.0-0.7) 10^3/uL Baso # (Auto) 0.0 0.1 (0.0-0.1) 10^3/uL Absolute Nucleated RBC 0.00 0.00 x10^3/uL Nucleated RBC % 0.0 0.0 /100WBC Sodium 137 139 (135-145) mmol/L Potassium 4.8 H 3.9 (3.5-4.5) mmol/L Chloride 102 103 (101-111) mmol/L Carbon Dioxide 28 29 (21-32) mmol/L Anion Gap 7.0 7.0 (6-13) BUN 10 6 (6-20) mg/dL Creatinine 1.0 0.9 (0.6-1.3) mg/dL Estimated GFR (MDRD) 56 L 63 L (>89) Glucose 294 H 187 H (74-104) mg/dL Estimat Average Glucose 148 H (70-100) mg/dL Hemoglobin A1c % 6.8 H (4.27-6.07) % Calcium 9.5 9.5 (8.5-10.3) mg/dL Magnesium 1.7 (1.7-2.3) mg/dL Total Bilirubin 0.7 0.7 (0.2-1.0) mg/dL AST 7 L 9 L (10-42) IU/L ALT 11 12 (10-60) IU/L Alkaline Phosphatase 80 78 (42-121) IU/L Total Protein 6.8 6.7 (6.4-8.9) g/dL Albumin 4.1 4.1 (3.2-5.5) g/dL Globulin 2.7 2.6 (2.1-4.2) g/dL Albumin/Globulin Ratio 1.5 1.6 (1.0-2.2) Triglycerides 96 mg/dL Cholesterol 123 ( - 200) mg/dL LDL Cholesterol, Calc 54 ( - 129) mg/dL VLDL Cholesterol 19 mg/dL HDL Cholesterol 50 L (60 - ) mg/dL LDL/HDL Ratio 1.1 (<4.4) Cholesterol/HDL Ratio 2.5 (<4.4) Lipase < 10 L (11-82) U/L TSH 0.64 (0.34-5.60) uIU/mL Nasal Adenovirus (PCR) NOT DETECTED Nasal B. parapertussis DNA (PCR) NOT DETECTED Nasal Coronavir 229E PCR NOT DETECTED Nasal Coronavir HKU1 PCR NOT DETECTED Nasal Coronavir NL63 PCR NOT DETECTED Nasal Coronavir OC43 PCR NOT DETECTED Nasal Enterovir/Rhinovir PCR NOT DETECTED Nasal Influenza B PCR NOT DETECTED Nasal Influenza A PCR NOT DETECTED Nasal Parainfluen 1 PCR NOT DETECTED Nasal Parainfluen 2 PCR NOT DETECTED Nasal Parainfluen 3 PCR NOT DETECTED Nasal Parainfluen 4 PCR NOT DETECTED Nasal RSV (PCR) NOT DETECTED Nasal B.pertussis DNA PCR NOT DETECTED Nasal C.pneumoniae (PCR) NOT DETECTED Vicente Human Metapneumo PCR NOT DETECTED Nasal M.pneumoniae (PCR) NOT DETECTED Nasal SARS-CoV-2 (PCR) NOT DETECTED Assessment/Plan Problem List (1) Acute hypoxic respiratory failure: Impression: Due to asthma exacerbation . She is working with RT this AM. She continues to require supplemental O2. she has a history of eosinophilic asthma, and is off her interleukin-5 inhibitor for 2-3 months. She is not on home oxygen. (2) Acute exacerbation of COPD with asthma: Impression: Acute asthma exacerbation, off of her medications, specifically her Nucala. She needs pulmonology followup. I have ordered SoluMedrol TID. We will treat with steroids and bronchodilators in hopes of weaning her oxygen. (3) Hyperglycemia: Impression: She has developed diabetes. I will treat with insulin while hospitalized. Will likely discharge on Metformin and have her see PCP in hospital followup for continuing care. well reactivator operator not avaiable here this weekend. I will try to set this up for post discharge. Laboratory Tests 10/21/23 07/26/24 07/27/24 13:38 18:24 05:04 Glucose 187 H 294 H Hemoglobin A1c % 5.8 6.8 H (4) Elevated blood pressure reading: Impression: Selected Entries 07/26/24 20:07 07/26/24 21:25 07/27/24 00:03 Blood Pressure 141/93 H Blood Pressure [Right Brachial artery] 143/90 H 139/72 H 07/27/24 05:00 07/27/24 08:11 Blood Pressure Blood Pressure [Right Brachial artery] 124/77 137/80 H
[2024-07-27] MEDS: INSULIN LISPRO 300 UNIT/3 ML PEN SUBQ SCH (07:32)
[2024-07-27] MEDS: FORMOTEROL FUMARATE NEB 20 MCG/2 ML INH SCH (07:37)
[2024-07-27] MEDS: BUDESONIDE 0.5 MG/2 ML NEB INH SCH (07:37)
[2024-07-27 08:13] VITALS: TEMP 97.9
[2024-07-27] MEDS: MULTIVITAMIN W/MINERALS TABLET PO SCH (08:19)
[2024-07-27] MEDS: DULoxetine 60 MG CAPSULE PO SCH (08:19)
[2024-07-27] MEDS: THIAMINE 100 MG TABLET PO SCH (08:19)
[2024-07-27] MEDS: CHOLECALCIFEROL 25 MCG TABLET PO SCH (08:19)
[2024-07-27] MEDS: ZINC SULFATE 220 MG CAPSULE PO SCH (08:19)
[2024-07-27] MEDS: ASCORBIC ACID 500 MG TABLET PO SCH (08:19)
[2024-07-27] MEDS: methylPREDNISolone SUCCINATE 40 MG/ML VIAL IVP SCH (08:20)
[2024-07-27] MEDS: NALTREXONE 50 MG PO SCH (08:20)
[2024-07-27] MEDS: ENOXAPARIN 40 MG/0.4 ML SYRINGE SUBQ SCH (08:26)
[2024-07-27] MEDS ORDERED: VILANTEROL INH SCH (09:00)
[2024-07-27] MEDS ORDERED: FLUTICASONE FUROATE INH SCH (09:00)
[2024-07-27] MEDS ORDERED: PREDNISONE 5 MG PO SCH (09:00)
[2024-07-27] MEDS ORDERED: [UNRECOGNIZED DRUG - OTHER] INH SCH (09:00)
[2024-07-27] MEDS ORDERED: predniSONE 20 MG TABLET PO SCH (09:00)
[2024-07-27 12:03] VITALS: BP 130/71; O2SAT 90
--- NOTE | 2024-07-27 12:13 | Discharge Summary ---
"Discharge Summary Admit Date: 07/27/24 Discharge Date: 07/27/24 Discharging Provider: Concepcion Honeycutt PA-C Primary Care Provider: RUSTY Lomas Code Status: Attempt Resuscitation Discharge Facility Name: [facility] DIAGNOSES Discharge Diagnoses with Status of Each Condition: Acute hypoxic respiratory failure, resolved Acute asthma exacerbation, treated New onset diabetes mellitus with hyperglycemia. Elevated blood-pressure reading without diagnosis of hypertension History of alcoholism HPI History of Present Illness: pt with h/o asthma, possible copd (denies formal dx) presents with sob x 2 days. no fevers or chills. no chest pain. pt reportes productive cough as well. states ran out of albuterol inhaler for 2 days, but harshad reported that she's been declining her breathing treatments. pt has had h/o hospitalizations in the past for respiratory failure. no recent travel. quit smoking 5yr ago and states smoked 2 cigarettes per day on average x 3 yr. no dysuria or hematuria. states stools feel loose and has them twice daily. no abd pain. no falls. no ams. states some [facility] workers may be sick. CONSULTS | PROCEDURES Procedures: CXR: No acute cardiopulmonary process. HOSPITAL COURSE Hospital Course: 1) Acute hypoxic respiratory failure: Due to asthma exacerbation . She is working with RT this AM. She continues to require supplemental O2. she has a history of eosinophilic asthma, and is off her interleukin-5 inhibitor for 2-3 months. She is not on home oxygen. By noon time she was improved and was on room air. She was not having any shortness of breath. Wheezing on lung auscultation had resolved. (2) Acute exacerbation of COPD with asthma: Acute asthma exacerbation, off of her medications, specifically her Nucala. She needs pulmonology followup. While inpatient she was treated with steroids and bronchodilators and was able to wean to room air. I am discharging her home on 60 mg of prednisone daily for 3 days only. I know that this will increase her hyperglycemia. (3) Hyperglycemia: She has developed diabetes. She was treated with insulin while inpatient. I strongly considered discharging her to home on metformin. However, I am not certain that she is no longer using alcohol. And I am concerned about development of lactic acidosis while using alcohol and metformin. I will therefore defer this decision to her primary care provider. I would also recommend meeting with cosmetology educator here at [facility] to discuss low carbohydrate diet choices. I would recommend follow-up with her primary care provider within the week. Laboratory Tests 10/21/23 07/26/24 07/27/24 13:38 18:24 05:04 Glucose 187 H 294 H Hemoglobin A1c % 5.8 6.8 H (4) Elevated blood pressure reading: No previous diagnosis of hypertension. Her blood pressure is slightly elevated while here but she is acutely ill and on steroids. Selected Entries 07/26/2420:07 07/26/2421:25 07/27/2400:03 Blood Pressure 141/93 H Blood Pressure [Right Brachial artery] 143/90 H 139/72 H 07/27/2405:00 07/27/2408:11 Blood Pressure Blood Pressure [Right Brachial artery] 124/77 137/80 H ALLERGIES Allergies Allergy/AdvReac Type Severity Reaction Status Date / Time No Known Drug Allergies Allergy Verified 07/26/24 17:44 MEDICATIONS Ambulatory Orders Medication Instructions Recorded Confirmed albuterol sulfate 90 mcg/actuation 1 - 2 puff inhalation Q4HR PRN 01/24/23 02/05/23 aerosol inhaler (Ventolin HFA) Shortness Of Air/Wheezing #1 ea cholecalciferol (vitamin D3) 50 50 mcg PO DAILY 01/24/23 02/05/23 mcg (2,000 unit) capsule diphenhydramine HCl 25 mg capsule 25 mg PO QPM 01/24/23 02/05/23 (Banophen) duloxetine 60 mg capsule,delayed 60 mg PO DAILY 01/24/23 02/05/23 release melatonin 5 mg tablet,immediate 5 mg PO HS 01/24/23 02/05/23 and extended release thiamine mononitrate (vit B1) 100 100 mg PO DAILY 01/24/23 02/05/23 mg tablet (Vitamin B-1 (mononitrate)) trazodone 150 mg tablet 150 mg ORAL HS 01/24/23 02/05/23 ipratropium bromide 17 2 puff inhalation Q6H #12.9 grams 01/30/23 02/05/23 mcg/actuation HFA aerosol inhaler (Atrovent HFA) fluticasone furoate 200 1 puff inhalation DAILY 02/05/23 02/05/23 mcg-vilanterol 25 mcg/dose inhalation powder (Breo Ellipta) gabapentin 300 mg capsule 900 mg PO QPM 02/05/23 02/05/23 naltrexone 50 mg tablet 50 mg PO QDAY #30 tabs 07/09/24 albuterol sulfate 90 mcg/actuation 2 puff inhalation QID PRN 07/27/24 aerosol inhaler (Ventolin HFA) shortness of breath or wheezing #8.5 grams prednisone 20 mg tablet 60 mg (3 x 20 mg) PO DAILY #9 tabs 07/27/24 PHYSICAL EXAM AT DISCHARGE General Appearance: positive No acute distress, Alert and Other (poorly groomed, hair is dirty. ) Eyes Bilateral: positive Normal inspection ENT: positive ENT inspection nml Neck: positive Nml inspection Respiratory: positive Chest non-tender, Breath sounds nml and Other (wheezing has resolved ) Cardiovascular: positive Regular rate & rhythm Abdomen: positive Non-tender and No distention Skin: positive Color nml and No rash Extremities: positive Non-tender and No pedal edema Neurologic/Psychiatric: positive Oriented x3 LABS 07/27/24 05:04 07/27/24 05:04 FOLLOW UP Follow Up: Pulmonology BEN PCP within one week- please consider metformin, but also consider her alcohol use. I am not convinced that she is abstinent. needs referral to DM educator needs repeat BMP to follow potassium. TIME SPENT Time Spent in Discharge (Minutes): 35 Discharge Plan Discharge Patient Disposition: Home, Self Care Condition: Good Prescriptions: New prednisone 20 mg tablet 60 mg PO DAILY Qty: 9 0RF Rx Instructions: 3 tabs daily for 3 days, next dose 07/28 albuterol sulfate [Ventolin HFA] 90 mcg/actuation HFA aerosol inhaler 2 puff inhalation QID PRN (Reason: shortness of breath or wheezing) Qty: 8.5 0RF Continued naltrexone 50 mg tablet 50 mg PO QDAY Qty: 30 1RF Rx Instructions: Pt. should make a follow up appointment w/ PCP. Naltraxone has been refilled(tablets are the only form they come in) for 30 days, with 1 refill. diphenhydramine HCl [Banophen] 25 MG capsule 25 mg PO QPM trazodone 150 MG tablet 150 mg ORAL HS duloxetine 60 MG capsule,delayed release(DR/EC) 60 mg PO DAILY cholecalciferol (vitamin D3) 50 MCG capsule 50 mcg PO DAILY thiamine mononitrate (vit B1) [Vitamin B-1 (mononitrate)] 100 MG tablet 100 mg PO DAILY melatonin 5 MG tablet, IR and ER, biphasic 5 mg PO HS albuterol sulfate [Ventolin HFA] 200 PUFFS/18 GM HFA aerosol inhaler 1 - 2 puff inhalation Q4HR PRN (Reason: Shortness Of Air/Wheezing) Qty: 1 0RF Atrovent HFA 200 PUFFS HFA aerosol inhaler 2 puff inhalation Q6H Qty: 12.9 0RF gabapentin 300 MG capsule 900 mg PO QPM fluticasone furoate-vilanterol [Breo Ellipta] 1 EACH blister with device 1 puff inhalation DAILY Discontinued [place] 5 MG tablet,delayed release (DR/EC) 10 mg PO DAILY Diet: Diabetic Interventions: Belongings Inventory Last Done: 07/26/24 22:50 Discharge Last Done: 07/27/24 12:36 Discharge Checklist - Nursing Last Done: 07/27/24 12:36 Health Concerns: You came into the hospital with low oxygen levels secondary to an asthma exacerbation. It probably has something to do with the fact that you are out of albuterol. It also probably has something to do with the fact that you are out of your Nucala. While you are here we have treated you with oxygen therapy. You have been able to wean off of the oxygen. This is probably because you were getting regular breathing treatments as well as steroids to reduce the inflammation in your lungs. While you were here in the hospital we found out that your blood sugar is elevated. Because your hemoglobin A1c is elevated it is obvious that your blood sugar has been elevated for quite some time. I think you need to be on some diabetes medicine but I also think you need to discuss this carefully with your primary care provider. Any alcohol use can adversely affect you when you are taking diabetes medication. Another option for controlling your diabetes would be with diet. We have diabetes educators here at [facility] that could meet with you in the [facility]. This is another reason for you to follow-up with your primary care provider to get this arranged. Care Plan Goals: Control your asthma Follow-up with your microsoft office instructor Take prednisone once a day in the morning for 3 days. Take this with food. I am concerned about sending you home, but I understand you want to go. It is very important that she return if you start to have increasing shortness of breath. Assessment: Finish 3 days of prednisone therapy Return if you are having increasing cough nests or shortness of breath that is not helped with your albuterol. Plan of Treatment: Finish 3 days of prednisone Start to think about making lower carbohydrate choices in your diet Follow-up with your primary care provider to discuss your hemoglobin A1c See your microsoft office instructor BEN to restart Nucala Return if you are having increasing cough or shortness of breath Check your pulse oximeter once a day Print Language: Nigerian Patient Instructions: Asthma, Asthma Control Follow-up Care: Noreen Carrasquillo NP [Primary Care Provider] -"
[2024-07-27] MEDS: ACETAMINOPHEN 325 MG TABLET PO PRN (13:28)
[2024-07-27] MEDS ORDERED: MELATONIN 3 MG TABLET PO SCH (21:00)
== END 2024-07-27 13:49 | disposition home or self-care (01) ==
LOC: MS2 17:32 → ED 17:32 → MS2 21:18
PROVIDERS: ADMIT Student in an Organized Health Care Education/Training Program; ATTEND Student in an Organized Health Care Education/Training Program
DX: E11.65 Type 2 diabetes mellitus with hyperglycemia; J82.83 Eosinophilic asthma; J96.01 Acute respiratory failure with hypoxia; Z87.891 Personal history of nicotine dependence; J45.901 Unspecified asthma with (acute) exacerbation; J44.1 Chronic obstructive pulmonary disease with (acute) exacerbation; R03.0 Elevated blood-pressure reading, without diagnosis of hypertension

== ENCOUNTER 2025-03-27 18:48 | Inpatient (IN) ==
--- OUTSIDE RECORDS SUMMARY | 2025-03-27 19:16 | EXTERNAL MEDICAL SUMMARY RPT | Continuity of Care Document ---
Author Organization [facility] Address [address] [place] [id number] Phone Problems date description facility 2025-03-19 08:49 Encounter for examin ation and observation following other accident Formerly [facility], [facility] Social History date description facility
--- NOTE | 2025-03-27 19:29 | ED Physician Documentation ---
History of Present Illness Stated complaint Stated Complaint: ABNORMAL LABS Chief complaint Chief Complaint: General History obtained from History obtained from: Patient and Family Additonal information Additional information: Patient is a 65-year-old female who had routine outpatient labs today and her blood sugar was 625. Therefore her doctor sent her here. She states she does not have a history of diabetes. She states she feels normal. May be having slightly increased thirst relative to normal. No vomiting. No abdominal pain. Nothing makes it better or worse. 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 Had been in an assisted living facility in the past but currently lives in a [facility] and her brother brings her medications over daily. She is on chronic steroids for eosinophilic asthma. She has not had any fevers or recent illnesses. She has a guardian in [place]. The guardian's name is Elise, she can be reached at [phone] Review of Systems Constitutional Denies: Fever or Chills Cardiovascular Denies: chest pain, palpitations or shortness of breath with exertion Respiratory Denies: Shortness of breath Meds/Allgy Home Medications Ambulatory Orders Medication Instructions Recorded Confirmed cholecalciferol (vitamin D3) 50 50 mcg PO DAILY 03/26/25 mcg (2,000 unit) capsule albuterol sulfate 90 mcg/actuation 2 puff inhalation Q ID PRN 08/26/24 03/26/25 aerosol inhaler (Ventolin HFA) shortness of breath or wheezing #8.5 grams atorvastatin 20 mg tablet (Lipitor) 20 mg PO QPM #90 t abs 03/27/25 03/27/25 escitalopram oxalate 20 mg tablet 20 mg PO QDAY #90 ta bs 03/27/25 03/27/25 gabapentin 600 mg tablet 600 mg PO TID #270 tabs 03/0103/27/25 naltrexone 50 mg tablet 50 mg PO QDAY #90 tabs 03/2703/27/25 prednisone 10 mg tablet 10 mg PO QDAY #90 tabs 03/2703/27/25 thiamine mononitrate (vit B1) 100 100 mg PO DAILY #90 tabs 03/27/25 03/27/25 mg tablet (Vitamin B-1 (mononitrate)) trazodone 150 mg tablet 150 mg PO HS #90 tabs 03/27/25 Allergies Allergies Allergy/AdvReac Type Severity Reaction Status Date / Time aspirin Allergy Severe Anaphylaxis Verified 03/27/25 19:10 dust Allergy Mild Unknown Uncoded 03/27/25 19:10 PFSH Active Problems All Active Problems (Updated 03/27/25 @ 23:45 by Mandeep Phan MD) Chronic steroid use (Acute) Hyperosmolar hyperglycemic state (HHS) (Acute) Medication management (Acute) Alcohol use disorder (Acute) Eosinophilic asthma (Acute) Urinary incontinence (Acute) 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 (Date/Year): 2yrs Number of Years Smoked: 5 Do you dip or chew tobacco?: No Do you vape?: No Patient requests smoking cessation consult: No Initiate information on smoking cessation: No Living arrangement: At home Living Condition: With family Level: Independent Do you feel safe in your home environment?: Yes History of physical, verbal, emotional, or financial abuse?: No POLST Patient has POLST: No Exam Exam Vital Signs: Vital Signs x48h Temp Pulse Resp BP Pulse Ox 03/27/25 23:23 64 18 115/81 97 03/27/25 19:07 36.5 C 86 20 111/77 95 Constitutional normal general appearance and no apparent distress HENMT oropharynx normal moist mucous membranes Eyes PERRL Neck/C-Spine visual inspection normal Respiratory breath sounds equal bilaterally, normal respiratory effort and clear to auscultation bilaterally Cardiovascular normal heart rate noted and regular rhythm noted Gastrointestinal abdomen normal to inspection, abdomen soft to palpation, nontender to palpation and nondistended Genitourinary no CVA tenderness Extremities no edema Neurology speech normal Psychiatry mental status grossly normal and oriented x3 Skin skin color normal Results Vitals Vitals: Vital Signs - 24 hr 03/27/25 19:07 03/27/25 23:23 Temperature 36.5 C Temperature Source Temporal Artery Scan Pulse Rate 86 64 Respiratory Rate 20 18 Blood Pressure 111/77 115/81 O2 Saturation 95 97 O2 Source Room air Room air Pain Intensity 0 Oxygen O2 Source Room air Labs Labs: Laboratory Tests 03/27/25 03/27/25 03/27/25 20:10 21:11 23:15 WBC 11.4 H RBC 4.30 Hgb 13.4 Hct 42.4 MCV 98.6 MCH 31.2 H MCHC 31.6 L RDW 12.6 Plt Count 329 MPV 10.3 Neut # (Auto) 9.6 H Lymph # (Auto) 1.2 L [place] # (Auto) 0.5 Eos # (Auto) 0.0 Baso # (Auto) 0.1 Absolute Nucleated RBC 0.00 Nucleated RBC % 0.0 VBG pH 7.389 VBG pCO2 33.4 L VBG pO2 54.1 H VBG HCO3 20.4 L VBG Total CO2 21.4 L VBG O2 Saturation 82.0 H VBG Base Excess -4.8 L Sodium 122 L Potassium 5.0 H Chloride 90 L Carbon Dioxide 23 Anion Gap 9.0 BUN 21 H Creatinine 1.0 Estimated GFR (MDRD) 56 L Glucose 846 H* POC Whole Bld Glucose > 600 Estimat Average Glucose 355 H Hemoglobin A1c % 14.0 H Calcium 9.3 Total Bilirubin 0.6 AST 8 L ALT 7 L Alkaline Phosphatase 72 Total Protein 7.1 Albumin 4.4 Globulin 2.7 Albumin/Globulin Ratio 1.6 Urine Color LIGHT YELLOW Urine Clarity CLEAR Urine pH 5.0 Ur Specific [place] 1.005 Urine Protein NEGATIVE Urine Glucose (UA) >=1000 H Urine Ketones 15 H Urine Occult Blood NEGATIVE Urine Nitrite NEGATIVE Urine Bilirubin NEGATIVE Urine Urobilinogen 0.2 (NORMAL) Ur Leukocyte Esterase NEGATIVE Ur Microscopic Review NOT INDICATED Urine Culture Comments NOT INDICATED Ethyl Alcohol < 10.0 Serum Ketones NEGATIVE PD Medical Decision Making ED course Complexity details: reviewed results, re-evaluated patient, considered differential and d/w patient ED course: Patient with significant hyperglycemia, calculated osmole's are around 300. No ketones. Started on insulin drip and given IV fluids. Urinalysis does not show signs of infection. She is on 10 mg of prednisone daily for eosinophilic asthma. She is also on a Mab for this. No fevers. No cough or congestion. Her A1c is 14. Will admit for management of new onset diabetes and possible hyper glycemic hyperosmolar nonketotic state. Discussed the case with the hospitalist who accepts. This document was made in part using voice recognition software. While efforts are made to proofread this document, sound alike and grammatical errors may occur. Discharge Plan Discharge Patient Disposition: [facility] DC/Xfer Condition: Serious Clinical Impression: Hyperglycemia, Hyperosmolar hyperglycemic state (HHS), Chronic steroid use Prescriptions: No Action albuterol sulfate [Ventolin HFA] 90 mcg/actuation HFA aerosol inhaler 2 puff inhalation QID PRN (Reason: shortness of breath or wheezing) Qty: 8.5 0RF cholecalciferol (vitamin D3) 50 MCG capsule 50 mcg PO DAILY prednisone 10 mg tablet 10 mg PO QDAY Qty: 90 0RF gabapentin 600 mg tablet 600 mg PO TID Qty: 270 3RF naltrexone 50 mg tablet 50 mg PO QDAY Qty: 90 3RF trazodone 150 mg tablet 150 mg PO HS Qty: 90 3RF atorvastatin [Lipitor] 20 mg tablet 20 mg PO QPM Qty: 90 3RF escitalopram oxalate 20 mg tablet 20 mg PO QDAY Qty: 90 3RF thiamine mononitrate (vit B1) [Vitamin B-1 (mononitrate)] 100 mg tablet 100 mg PO DAILY Qty: 90 3RF Print Language: Zambian
[2025-03-27] MEDS: SODIUM CHLORIDE 0.9% 1,000 ML IV STA (20:18)
[2025-03-27 20:33] LABS: HCT - HEMATOCRIT 42.4 % (37.0-47.0); HGB - HEMOGLOBIN 13.4 g/dL (12.0-16.0); MEAN PLATELET VOLUME 10.3 fL (7.9-10.8); NRBC ABSOLUTE COUNT (AUTO) 0.00 x10^3/uL; NUCLEATED RED BLOOD CELLS AUTO 0.0 /100WBC; PLT - PLATELET COUNT 329 10^3/uL (130-450); RED CELL DISTRIBUTION WIDTH 12.6 % (12.0-15.0)
[2025-03-27 20:50] LABS: VBG BASE EXCESS -4.8 mmol/L (-2 - +2); VBG PCO2 33.4 mmHg (41-51); VBG PH 7.389 (7.31-7.41); VBG PO2 54.1 mmHg (25-47); VBG TOTAL CO2 21.4 mmol/L (24-29)
[2025-03-27 21:25] LABS: GLUCOSE, URINE (UA) >=1000 mg/dL (NEGATIVE); KETONES,URINE (UA) 15 mg/dL (NEGATIVE); OCCULT BLOOD,URINE NEGATIVE (NEGATIVE)
[2025-03-27 21:39] LABS: ETOH - ETHANOL < 10.0 mg/dL
[2025-03-27 21:49] LABS: KETONES, SERUM (ACETEST) NEGATIVE (NEGATIVE)
[2025-03-27 21:55] LABS: ESTIMATED AVERAGE GLUCOSE 355 mg/dL (70-100); HEMOGLOBIN A1c% 14.0 % (4.27-6.07)
[2025-03-27 22:19] LABS: ALT ALANINE AMINOTRANSFERASE 7 IU/L (10-60); AST ASPARTATE AMINOTRANSFERASE 8 IU/L (10-42); BUN - BLOOD UREA NITROGEN 21 mg/dL (6-20); CARBON DIOXIDE - CO2 23 mmol/L (21-32); CREATININE 1.0 mg/dL (0.6-1.3); GFR - MDRD 56 (>89)
[2025-03-27] MEDS: INSULIN REGULAR IN 0.9 % NS 100 UNIT/100 ML BAG IV STA (23:17)
[2025-03-28] MEDS ORDERED: ONDANSETRON 4 MG/2 ML VIAL IVP PRN (00:49)
[2025-03-28] MEDS ORDERED: SODIUM CHLORIDE FLUSH 0.9% 10 ML SYRINGE IVP PRN (00:49)
--- OUTSIDE RECORDS SUMMARY | 2025-03-28 00:49 | EXTERNAL MEDICAL SUMMARY RPT | Continuity of Care Document ---
Author Organization [facility] Address [address] [place] [id number] Phone Problems date description facility 2025-03-19 08:49 Encounter for examin ation and observation following other accident [facility] Social History date description facility
[2025-03-28] MEDS ORDERED: ALBUTEROL NEB 2.5 MG/3 ML INH PRN (01:00)
[2025-03-28] MEDS: INSULIN REGULAR IN 0.9 % NS 100 UNIT/100 ML BAG IV SCH (01:19)
--- NOTE | 2025-03-28 01:21 | HISTORY & PHYSICAL EXAMINATION ---
Chief Complaint Chief Complaint Chief Complaint: Abnormal Labs History of Present Illness Admitted From Admitted From:: Home History of Present Illness HPI Comment/Other: Patient is 65 y/o F with hx of alcohol use disorder and some cognitive issues with refusal to puruse neurology referral for urinary incontinence and ataxia and patient's refusal to believe her gait issues which are well noted by care givers and concerned family members , who was living in [facility] now moved to [facility] for more independence and patient has Guardian Elise, she can be reached at [phone], is priyank to hospital for abnormal Labs of Blood sugar > 600 mg/dl on outpatient labs Patient has hx of Eosinophilic asthma and as per records review from outpatient patient is on chronic daily prednisone 10 mg daily and Nucala injection monthly. Review of Medical records show from outpatient there are concern for cognition and refusal of care, in ER Patient had Blood sugar > 800 and high osmolality, hospitalist is asked to admit patient, Last A1c prior to this was 6.8 as per outpatient notes Patient is communicating , talking, alert, oriented x 3 and brother wyatt is at bedside Patient denies any alcohol use but brother tells me patient had relapse 2 weeks ago (last drink) which is inconsistent with patient's self stated abstinence > 1 year, patient has no recollection of any drinking of alcohol 2 weeks ago Meds/Allgy Home Medications Ambulatory Orders Medication Instructions Recorded Confirmed cholecalciferol (vitamin D3) 50 50 mcg PO DAILY 03/26/25 mcg (2,000 unit) capsule albuterol sulfate 90 mcg/actuation 2 puff inhalation Q ID PRN 08/26/24 03/26/25 aerosol inhaler (Ventolin HFA) shortness of breath or wheezing #8.5 grams atorvastatin 20 mg tablet (Lipitor) 20 mg PO QPM #90 t abs 03/27/25 03/27/25 escitalopram oxalate 20 mg tablet 20 mg PO QDAY #90 ta bs 03/27/25 03/27/25 gabapentin 600 mg tablet 600 mg PO TID #270 tabs 03/0103/27/25 naltrexone 50 mg tablet 50 mg PO QDAY #90 tabs 03/2703/27/25 prednisone 10 mg tablet 10 mg PO QDAY #90 tabs 03/2703/27/25 thiamine mononitrate (vit B1) 100 100 mg PO DAILY #90 tabs 03/27/25 03/27/25 mg tablet (Vitamin B-1 (mononitrate)) trazodone 150 mg tablet 150 mg PO HS #90 tabs 03/27/25 Allergies Allergies Allergy/AdvReac Type Severity Reaction Status Date / Time aspirin Allergy Severe Anaphylaxis Verified 03/27/25 19:10 dust Allergy Mild Unknown Uncoded 03/27/25 19:10 PFSH Active Problems All Active Problems (Updated 03/27/25 @ 23:45 by Mandeep Phan MD) Chronic steroid use (Acute) Hyperosmolar hyperglycemic state (HHS) (Acute) Medication management (Acute) Alcohol use disorder (Acute) Eosinophilic asthma (Acute) Urinary incontinence (Acute) 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 (Date/Year): 2yrs Number of Years Smoked: 5 Do you dip or chew tobacco?: No Do you vape?: No Patient requests smoking cessation consult: No Initiate information on smoking cessation: No Living arrangement: At home Living Condition: With family Level: Independent Do you feel safe in your home environment?: Yes History of physical, verbal, emotional, or financial abuse?: No POLST Patient has POLST: No Review of Systems Status of ROS: 10 or more systems reviewed and unremarkable except as noted in history and below Exam Exam Vital Signs: Vital Signs x48h Temp Pulse Resp BP Pulse Ox 03/28/25 00:57 36.2 C L 82 16 109/92 H 96 03/27/25 23:23 64 18 115/81 97 03/27/25 19:07 36.5 C 86 20 111/77 95 exam was conducted by RN at bedside Constitutional normal general appearance and average body habitus HENMT normocephalic and head/scalp atraumatic Eyes PERRL and EOMs intact bilaterally Neck/C-Spine visual inspection normal Respiratory breath sounds equal bilaterally Cardiovascular normal heart rate noted Neurology GCS 15 oriented x 3 Conclusion/Plan Problem List (1) Hyperosmolar hyperglycemic state (HHS): (2) Alcohol use disorder: (3) Chronic steroid use: Plan - No prior diagnosis of Diabetes as per patient although A1c was 6.8 in ambulatory setting - Now A1c is 14 with hyperosmolar state and normal neuro exam (patient is oriented x 3 conversating) - Given hyperglycemia with osmolar state, start insulin drip and continue IV NS - Drip can be turned off in AM with starting Lantus and gradual carb diet - hold steroids for now, no respiratory symptoms - Will be challenging outpatient transition dueto prior refusal of care despite objective ataxia - Continue ICU level of care, if improvement in blood glucose transfer out of ICU likely DC In 24 hrs - Pseudohyponatremia due to hyperglycemia continue IV NS - elevated K , will correct with insulin and shift of Glucose - Full code status Lab Results 03/27/25 20:10 03/27/25 21:11
[2025-03-28 01:44] LABS: VBG BASE EXCESS -3.9 mmol/L (-2 - +2); VBG PCO2 35.3 mmHg (41-51); VBG PH 7.385 (7.31-7.41); VBG PO2 35.2 mmHg (25-47); VBG TOTAL CO2 22.4 mmol/L (24-29)
[2025-03-28] MEDS: INSULIN REGULAR, HUMAN 300 UNIT/3 ML PEN IVP ONE (01:48)
[2025-03-28 01:50] LABS: BUN - BLOOD UREA NITROGEN 21.0 mg/dL (6-20); CARBON DIOXIDE - CO2 23.0 mmol/L (21-32); CREATININE 0.9 mg/dL (0.6-1.3); GFR - MDRD 63.0 (>89)
[2025-03-28 01:50] LABS: ABG FRACTION OF INSPIRED O2 21.00
[2025-03-28 01:51] LABS: ABG BASE EXCESS -4.7 mmol/L (-2.0-3.0); ABG HCO3 19.4 mmol/L (22.0-26.0); ABG OXYGEN SATURATION 100 % (95-98); ABG PCO2 27 mmHg (34-45); ABG PH 7.46 (7.35-7.45); ABG PO2 103 mmHg (83-108); ABG TCO2 20.2 mmol/L (21.0-29.0)
[2025-03-28] MEDS: SODIUM CHLORIDE 0.9% 1,000 ML IV SCH (01:52)
[2025-03-28] MEDS: POTASSIUM CHLOR 10 MEQ/100 ML 10 MEQ/100 ML BAG IV ONE ×2 (03:12→04:11)
[2025-03-28] MEDS: SODIUM CHLORIDE FLUSH 0.9% 10 ML SYRINGE IVP SCH (03:13)
[2025-03-28 04:49] LABS: HCT - HEMATOCRIT 35.9 % (37.0-47.0); HGB - HEMOGLOBIN 12.3 g/dL (12.0-16.0); MEAN PLATELET VOLUME 9.3 fL (7.9-10.8); NRBC ABSOLUTE COUNT (AUTO) 0.00 x10^3/uL; NUCLEATED RED BLOOD CELLS AUTO 0.0 /100WBC; PLT - PLATELET COUNT 289 10^3/uL (130-450); RED CELL DISTRIBUTION WIDTH 12.3 % (12.0-15.0)
[2025-03-28 05:07] LABS: BUN - BLOOD UREA NITROGEN 17.0 mg/dL (6-20); CARBON DIOXIDE - CO2 23.0 mmol/L (21-32); CREATININE 0.7 mg/dL (0.6-1.3); GFR - MDRD 84.0 (>89)
[2025-03-28 05:36] LABS: PHOSPHORUS 2.9 mg/dL (2.5-5.0)
[2025-03-28] MEDS ORDERED: MAGNESIUM SULFATE 2 GRAM 2 GM/50 ML BAG IV ONE (06:00)
[2025-03-28] MEDS: INSULIN GLARGINE-YFGN 300 UNIT/3 ML PEN SUBQ SCH (06:20)
[2025-03-28] MEDS: POTASSIUM CHLOR 10 MEQ/100 ML 10 MEQ/100 ML BAG IV SCH (06:21)
[2025-03-28 07:02] LABS: GLUCOSE, URINE (UA) >=1000 mg/dL (NEGATIVE); KETONES,URINE (UA) TRACE mg/dL (NEGATIVE); OCCULT BLOOD,URINE NEGATIVE (NEGATIVE)
[2025-03-28] MEDS: THIAMINE 100 MG TABLET PO SCH (08:57)
[2025-03-28] MEDS: ethyl alcohoL 62% SWAB AMPULE NAS SCH (08:58)
[2025-03-28] MEDS: INSULIN LISPRO 300 UNIT/3 ML PEN SUBQ SCH (09:10)
[2025-03-28] MEDS: HEPARIN 5,000 UNIT/ML VIAL SUBQ SCH (09:10)
[2025-03-28 09:22] LABS: BUN - BLOOD UREA NITROGEN 15.0 mg/dL (6-20); CARBON DIOXIDE - CO2 22.0 mmol/L (21-32); CREATININE 0.6 mg/dL (0.6-1.3); GFR - MDRD 100.0 (>89)
[2025-03-28] MEDS: MAGNESIUM OXIDE 400 MG TABLET PO ONE (09:51)
[2025-03-28] MEDS: POTASSIUM CHLORIDE 20 MEQ TABLET PO ONE ×2 (09:52→15:33)
--- NOTE | 2025-03-28 12:15 | PHARMACY PROGRESS NOTE ---
Best Possible Medication History Admit Date and Time: 03/27/25 2342 Home Medications Medication Instructions Recorded Confirmed Type cholecalciferol (vitamin D3) 50 50 mcg PO DAILY 03/28/25 History mcg (2,000 unit) capsule albuterol sulfate 90 mcg/actuation 2 puff inhalation Q ID PRN 08/26/24 03/28/25 Rx aerosol inhaler (Ventolin HFA) shortness of breath or wheezing #8.5 grams atorvastatin 20 mg tablet (Lipitor) 20 mg PO QPM #90 t abs 03/27/25 03/28/25 Rx escitalopram oxalate 20 mg tablet 20 mg PO QDAY #90 ta bs 03/27/25 03/28/25 Rx gabapentin 600 mg tablet 600 mg PO TID #270 tabs 03/0103/28/25 Rx thiamine mononitrate (vit B1) 100 100 mg PO DAILY #90 tabs 03/27/25 03/28/25 Rx mg tablet (Vitamin B-1 (mononitrate)) trazodone 150 mg tablet 150 mg PO HS #90 tabs 03/28/25 Rx mepolizumab 100 mg/mL subcutaneous 100 mg subcut Q28D 03/28/25 03/28/25 History syringe (Nucala) naltrexone 50 mg tablet 50 mg PO DAILY 03/28/2503/01 History prednisone 10 mg tablet 10 mg PO DAILY 03/28/2503/01 History Processed by: Pharmacy Medications reviewed in ED?: No Medication History completed: Yes Patient Interview: Completed Secondary Source(s): Pharmacy records and Insurance records [facility] Statement: As the person ultimately responsible for medication therapy, providers are able to order a medication from an existing home medication list in [facility] via the "Reconcile Routine" prior to Confirmation of that medication by is support analyst. Such practice is discouraged except when the physician, in their clinical judgment, deems that a medical need exists for a medication without regard to previous use.
[2025-03-28] MEDS: INSULIN LISPRO 300 UNIT/3 ML PEN SUBQ STA (12:16)
[2025-03-28 13:17] LABS: BUN - BLOOD UREA NITROGEN 13.0 mg/dL (6-20); CARBON DIOXIDE - CO2 21.0 mmol/L (21-32); CREATININE 0.7 mg/dL (0.6-1.3); GFR - MDRD 84.0 (>89)
[2025-03-28] MEDS: MAGNESIUM SULFATE 2 GRAM 2 GM/50 ML BAG IV ONE (15:33)
--- NOTE | 2025-03-28 18:03 | PROVIDER PROGRESS NOTE ---
Subjective Prog Note Date Prog Note Date: 03/28/25 Prog Note Time: 17:58 Subjective Pt reports feeling: Improved Subjective: Patient is alert and oriented and can understand what I am telling her. But I am slightly alarmed by the fact that a few minutes later I am having to repeat myself because she cannot retain information. She is shocked that she has diabetes. Review of her record shows her A1c to been rising over the last couple of years but her last A1c was under 7% in June 2024. I explained to her what A1c means and why an A1c of 14% is a problem. I had thought that I would discharge her today. Glucose was 150s this morning. She was given 1 dose of 7 units of Semglee this morning but by afternoon she was in 300s again needing over 20 units of lispro. She still needs more instruction to control her glucose. Current Medications Current Medications Current Medications: Current Medications Generic Name Dose Route Start Last Admin Trade Name Freq PRN Reason Stop Dose Admin Albuterol 2.5 mg 03/28/25 01:00 Albuterol Neb 2.5 Mg/3 Ml INH QID PRN shortness of breath or wheezin Alcohol 1 amp 03/28/25 09:00 03/28/25 08:58 Ethyl Alcohol 62% Swab Ampule KAITLIN 1 amp BID JESUS Administration Atorvastatin Calcium 20 mg 03/28/25 21:00 Atorvastatin 10 Mg Tablet PO QPM JESUS Heparin Sodium (Porcine) 5,000 unit 03/28/25 09:00 03/28/25 09:10 Heparin 5,000 Unit/Ml Vial SUBQ 5,000 unit BID JESUS Administration Insulin Human Lispro 3 - 11 unit 03/28/25 08:00 03/28/25 17:08 Insulin Lispro 300 Unit/3 Ml Pen SUBQ 9 unit 0800,1200,1700,2100 JESUS Administration Protocol Ondansetron HCl 4 mg 03/28/25 00:49 Ondansetron 4 Mg/2 Ml Vial IVP Q6HR PRN Nausea / Vomiting Sodium Chloride 10 ml 03/28/25 01:00 03/28/25 17:08 Sodium Chloride Flush 0.9% 10 Ml Syringe IVP 10 ml 0100,0900,1700 JESUS Administration Sodium Chloride 10 ml 03/28/25 00:49 Sodium Chloride Flush 0.9% 10 Ml Syringe IVP PRN PRN NEEDED PER PROVIDER ORDERS Thiamine HCl 100 mg 03/28/25 09:00 03/28/25 08:57 Thiamine 100 Mg Tablet PO 100 mg DAILY JESUS Administration Objective Vital Signs/Intake & Output Reviewed Vital Signs: Yes Vital Signs: Vital Signs x48h Temp Pulse Resp BP Pulse Ox 03/28/25 17:00 96 18 102/59 L 95 03/28/25 16:00 36.7 C 72 20 105/61 98 03/28/25 15:00 74 23 97/61 96 03/28/25 14:00 80 17 114/73 97 03/28/25 13:00 87 15 99/86 94 03/28/25 12:00 36.7 C 85 17 121/102 H 97 03/28/25 11:00 75 23 110/74 95 03/28/25 10:00 70 12 117/78 97 Intake & Output: Intake & Output 03/25/25 03/26/25 03/27/25 03/28/25 23:59 23:59 23:59 23:59 Intake Total 1006 / 1006 1901 / 1901 Output Total 1400 / 1400 Balance 1006 / 1006 501 / 501 Weight (kg) 86.183 kg 83.5 kg Objective General Appearance: positive No acute distress, Alert (Well-nourished well- developed female at 5 foot 9 inches tall, 83.5 kg, 27.2 BMI) and Other (Pleasant, oriented to person, place, time and situation) Eyes Bilateral: positive PERRL and EOMI ENT: positive Pharynx nml and No signs of dehydration Neck: positive Nml inspection; negative Stiff neck or Carotid bruit Respiratory: positive Chest non-tender, No respiratory distress and Breath sounds nml Cardiovascular: positive Regular rate & rhythm and No murmur Abdomen: positive Non-tender, No organomegaly and Nml bowel sounds Extremities: positive Non-tender, Full ROM and Nml appearance Neurologic/Psychiatric: positive Oriented x3, CN's nml (2-12) and Motor nml Lab Results 03/28/25 04:34 03/28/25 12:49 Other Labs: Lab Results x24hrs 03/28/25 03/28/25 03/28/25 Range/Units 16:44 12:49 11:55 WBC (4.8-10.8) x10^3/uL RBC (4.20-5.40) 10^6/uL Hgb (12.0-16.0) g/dL Hct (37.0-47.0) % MCV (81.0-99.0) fL MCH (27.0-31.0) pg MCHC (32.0-36.0) g/dL RDW (12.0-15.0) % Plt Count (130-450) 10^3/uL MPV (7.9-10.8) fL Neut # (Auto) (1.5-6.6) 10^3/uL Lymph # (Auto) (1.5-3.5) 10^3/uL [place] # (Auto) (0.0-1.0) 10^3/uL Eos # (Auto) (0.0-0.7) 10^3/uL Baso # (Auto) (0.0-0.1) 10^3/uL Absolute Nucleated RBC x10^3/uL Nucleated RBC % /100WBC Bld Gas Analysis Time Sample Site ABG pH (7.35-7.45) ABG pCO2 (34-45) mmHg ABG pO2 (83-108) mmHg ABG HCO3 (22.0-26.0) mmol/L ABG Total CO2 (21.0-29.0) mmol/L ABG O2 Saturation (95-98) % ABG Base Excess (-2.0-3.0) mmol/L Case Test VBG pH (7.31-7.41) VBG pCO2 (41-51) mmHg VBG pO2 (25-47) mmHg VBG HCO3 (23-28) mmol/L VBG Total CO2 (24-29) mmol/L VBG O2 Saturation (60-80) % VBG Base Excess (-2 - +2) mmol/L O2 Delivery Device FiO2 Sodium 131 L (135-145) mmol/L Potassium 3.9 (3.5-4.5) mmol/L Chloride 102 (101-111) mmol/L Carbon Dioxide 21 (21-32) mmol/L Anion Gap 8.0 (6-13) BUN 13 (6-20) mg/dL Creatinine 0.7 (0.6-1.3) mg/dL Estimated GFR (MDRD) 84 L (>89) Glucose 470 H (74-104) mg/dL POC Whole Bld Glucose 299 378 (70-100) mg/dL Estimat Average Glucose (70-100) mg/dL Hemoglobin A1c % (4.27-6.07) % Calcium 8.8 (8.5-10.3) mg/dL Phosphorus (2.5-5.0) mg/dL Magnesium 1.7 (1.7-2.3) mg/dL Total Bilirubin (0.2-1.0) mg/dL AST (10-42) IU/L ALT (10-60) IU/L Alkaline Phosphatase (42-121) IU/L Total Protein (6.4-8.9) g/dL Albumin (3.2-5.5) g/dL Globulin (2.1-4.2) g/dL Albumin/Globulin Ratio (1.0-2.2) Urine Color Urine Clarity (CLEAR) Urine pH (5.0-7.5) PH Ur Specific [place] (1.002-1.030) Urine Protein (NEGATIVE) mg/dL Urine Glucose (UA) (NEGATIVE) mg/dL Urine Ketones (NEGATIVE) mg/dL Urine Occult Blood (NEGATIVE) Urine Nitrite (NEGATIVE) Urine Bilirubin (NEGATIVE) Urine Urobilinogen (NORMAL) E.U./dL Ur Leukocyte Esterase (NEGATIVE) Ur Microscopic Review Urine Culture Comments Nasal Screen MRSA (PCR) (NEGATIVE) Ethyl Alcohol mg/dL Serum Ketones (NEGATIVE) 03/28/25 03/28/25 03/28/25 Range/Units 08:55 07:34 06:20 WBC (4.8-10.8) x10^3/uL RBC (4.20-5.40) 10^6/uL Hgb (12.0-16.0) g/dL Hct (37.0-47.0) % MCV (81.0-99.0) fL MCH (27.0-31.0) pg MCHC (32.0-36.0) g/dL RDW (12.0-15.0) % Plt Count (130-450) 10^3/uL MPV (7.9-10.8) fL Neut # (Auto) (1.5-6.6) 10^3/uL Lymph # (Auto) (1.5-3.5) 10^3/uL Sc[place] # (Auto) (0.0-1.0) 10^3/uL Eos # (Auto) (0.0-0.7) 10^3/uL Baso # (Auto) (0.0-0.1) 10^3/uL Absolute Nucleated RBC x10^3/uL Nucleated RBC % /100WBC Bld Gas Analysis Time Sample Site ABG pH (7.35-7.45) ABG pCO2 (34-45) mmHg ABG pO2 (83-108) mmHg ABG HCO3 (22.0-26.0) mmol/L ABG Total CO2 (21.0-29.0) mmol/L ABG O2 Saturation (95-98) % ABG Base Excess (-2.0-3.0) mmol/L Case Test VBG pH (7.31-7.41) VBG pCO2 (41-51) mmHg VBG pO2 (25-47) mmHg VBG HCO3 (23-28) mmol/L VBG Total CO2 (24-29) mmol/L VBG O2 Saturation (60-80) % VBG Base Excess (-2 - +2) mmol/L O2 Delivery Device FiO2 Sodium 136 (135-145) mmol/L Potassium 3.9 (3.5-4.5) mmol/L Chloride 106 (101-111) mmol/L Carbon Dioxide 22 (21-32) mmol/L Anion Gap 8.0 (6-13) BUN 15 (6-20) mg/dL Creatinine 0.6 (0.6-1.3) mg/dL Estimated GFR (MDRD) 100 (>89) Glucose 185 H (74-104) mg/dL POC Whole Bld Glucose 157 (70-100) mg/dL Estimat Average Glucose (70-100) mg/dL Hemoglobin A1c % (4.27-6.07) % Calcium 8.8 (8.5-10.3) mg/dL Phosphorus (2.5-5.0) mg/dL Magnesium (1.7-2.3) mg/dL Total Bilirubin (0.2-1.0) mg/dL AST (10-42) IU/L ALT (10-60) IU/L Alkaline Phosphatase (42-121) IU/L Total Protein (6.4-8.9) g/dL Albumin (3.2-5.5) g/dL Globulin (2.1-4.2) g/dL Albumin/Globulin Ratio (1.0-2.2) Urine Color YELLOW Urine Clarity CLEAR (CLEAR) Urine pH 6.0 (5.0-7.5) PH Ur Specific [place] 1.010 (1.002-1.030) Urine Protein NEGATIVE (NEGATIVE) mg/dL Urine Glucose (UA) >=1000 H (NEGATIVE) mg/dL Urine Ketones TRACE (NEGATIVE) mg/dL Urine Occult Blood NEGATIVE (NEGATIVE) Urine Nitrite NEGATIVE (NEGATIVE) Urine Bilirubin NEGATIVE (NEGATIVE) Urine Urobilinogen 0.2 (NORMAL) (NORMAL) E.U./dL Ur Leukocyte Esterase NEGATIVE (NEGATIVE) Ur Microscopic Review NOT INDICATED Urine Culture Comments NOT INDICATED Nasal Screen MRSA (PCR) (NEGATIVE) Ethyl Alcohol mg/dL Serum Ketones (NEGATIVE) 03/28/25 03/28/25 03/28/25 Range/Units 04:59 04:34 04:34 WBC 11.3 H (4.8-10.8) x10^3/uL RBC 3.84 L (4.20-5.40) 10^6/uL Hgb 12.3 (12.0-16.0) g/dL Hct 35.9 L (37.0-47.0) % MCV 93.5 (81.0-99.0) fL MCH 32.0 H (27.0-31.0) pg MCHC 34.3 (32.0-36.0) g/dL RDW 12.3 (12.0-15.0) % Plt Count 289 (130-450) 10^3/uL MPV 9.3 (7.9-10.8) fL Neut # (Auto) 6.4 (1.5-6.6) 10^3/uL Lymph # (Auto) 4.1 H (1.5-3.5) 10^3/uL Scurry # (Auto) 0.7 (0.0-1.0) 10^3/uL Eos # (Auto) 0.0 (0.0-0.7) 10^3/uL Baso # (Auto) 0.1 (0.0-0.1) 10^3/uL Absolute Nucleated RBC 0.00 x10^3/uL Nucleated RBC % 0.0 /100WBC Bld Gas Analysis Time Sample Site ABG pH (7.35-7.45) ABG pCO2 (34-45) mmHg ABG pO2 (83-108) mmHg ABG HCO3 (22.0-26.0) mmol/L ABG Total CO2 (21.0-29.0) mmol/L ABG O2 Saturation (95-98) % ABG Base Excess (-2.0-3.0) mmol/L Case Test VBG pH (7.31-7.41) VBG pCO2 (41-51) mmHg VBG pO2 (25-47) mmHg VBG HCO3 (23-28) mmol/L VBG Total CO2 (24-29) mmol/L VBG O2 Saturation (60-80) % VBG Base Excess (-2 - +2) mmol/L O2 Delivery Device FiO2 Sodium 134 L (135-145) mmol/L Potassium 3.6 (3.5-4.5) mmol/L Chloride 103 (101-111) mmol/L Carbon Dioxide 23 (21-32) mmol/L Anion Gap 8.0 (6-13) BUN 17 (6-20) mg/dL Creatinine 0.7 (0.6-1.3) mg/dL Estimated GFR (MDRD) 84 L (>89) Glucose 146 H (74-104) mg/dL POC Whole Bld Glucose 115 (70-100) mg/dL Estimat Average Glucose (70-100) mg/dL Hemoglobin A1c % (4.27-6.07) % Calcium 9.0 9.0 (8.5-10.3) mg/dL Phosphorus 2.9 (2.5-5.0) mg/dL Magnesium 1.8 (1.7-2.3) mg/dL Total Bilirubin (0.2-1.0) mg/dL AST (10-42) IU/L ALT (10-60) IU/L Alkaline Phosphatase (42-121) IU/L Total Protein (6.4-8.9) g/dL Albumin (3.2-5.5) g/dL Globulin (2.1-4.2) g/dL Albumin/Globulin Ratio (1.0-2.2) Urine Color Urine Clarity (CLEAR) Urine pH (5.0-7.5) PH Ur Specific [place] (1.002-1.030) Urine Protein (NEGATIVE) mg/dL Urine Glucose (UA) (NEGATIVE) mg/dL Urine Ketones (NEGATIVE) mg/dL Urine Occult Blood (NEGATIVE) Urine Nitrite (NEGATIVE) Urine Bilirubin (NEGATIVE) Urine Urobilinogen (NORMAL) E.U./dL Ur Leukocyte Esterase (NEGATIVE) Ur Microscopic Review Urine Culture Comments Nasal Screen MRSA (PCR) (NEGATIVE) Ethyl Alcohol mg/dL Serum Ketones (NEGATIVE) 03/28/25 03/28/25 03/28/25 Range/Units 04:00 03:04 02:02 WBC (4.8-10.8) x10^3/uL RBC (4.20-5.40) 10^6/uL Hgb (12.0-16.0) g/dL Hct (37.0-47.0) % MCV (81.0-99.0) fL MCH (27.0-31.0) pg MCHC (32.0-36.0) g/dL RDW (12.0-15.0) % Plt Count (130-450) 10^3/uL MPV (7.9-10.8) fL Neut # (Auto) (1.5-6.6) 10^3/uL Lymph # (Auto) (1.5-3.5) 10^3/uL Scurry # (Auto) (0.0-1.0) 10^3/uL Eos # (Auto) (0.0-0.7) 10^3/uL Baso # (Auto) (0.0-0.1) 10^3/uL Absolute Nucleated RBC x10^3/uL Nucleated RBC % /100WBC Bld Gas Analysis Time Sample Site ABG pH (7.35-7.45) ABG pCO2 (34-45) mmHg ABG pO2 (83-108) mmHg ABG HCO3 (22.0-26.0) mmol/L ABG Total CO2 (21.0-29.0) mmol/L ABG O2 Saturation (95-98) % ABG Base Excess (-2.0-3.0) mmol/L Case Test VBG pH (7.31-7.41) VBG pCO2 (41-51) mmHg VBG pO2 (25-47) mmHg VBG HCO3 (23-28) mmol/L VBG Total CO2 (24-29) mmol/L VBG O2 Saturation (60-80) % VBG Base Excess (-2 - +2) mmol/L O2 Delivery Device FiO2 Sodium (135-145) mmol/L Potassium (3.5-4.5) mmol/L Chloride (101-111) mmol/L Carbon Dioxide (21-32) mmol/L Anion Gap (6-13) BUN (6-20) mg/dL Creatinine (0.6-1.3) mg/dL Estimated GFR (MDRD) (>89) Glucose (74-104) mg/dL POC Whole Bld Glucose 159 222 359 (70-100) mg/dL Estimat Average Glucose (70-100) mg/dL Hemoglobin A1c % (4.27-6.07) % Calcium (8.5-10.3) mg/dL Phosphorus (2.5-5.0) mg/dL Magnesium (1.7-2.3) mg/dL Total Bilirubin (0.2-1.0) mg/dL AST (10-42) IU/L ALT (10-60) IU/L Alkaline Phosphatase (42-121) IU/L Total Protein (6.4-8.9) g/dL Albumin (3.2-5.5) g/dL Globulin (2.1-4.2) g/dL Albumin/Globulin Ratio (1.0-2.2) Urine Color Urine Clarity (CLEAR) Urine pH (5.0-7.5) PH Ur Specific [place] (1.002-1.030) Urine Protein (NEGATIVE) mg/dL Urine Glucose (UA) (NEGATIVE) mg/dL Urine Ketones (NEGATIVE) mg/dL Urine Occult Blood (NEGATIVE) Urine Nitrite (NEGATIVE) Urine Bilirubin (NEGATIVE) Urine Urobilinogen (NORMAL) E.U./dL Ur Leukocyte Esterase (NEGATIVE) Ur Microscopic Review Urine Culture Comments Nasal Screen MRSA (PCR) (NEGATIVE) Ethyl Alcohol mg/dL Serum Ketones (NEGATIVE) 03/28/25 03/28/25 03/28/25 Range/Units 01:45 01:30 01:16 WBC (4.8-10.8) x10^3/uL RBC (4.20-5.40) 10^6/uL Hgb (12.0-16.0) g/dL Hct (37.0-47.0) % MCV (81.0-99.0) fL MCH (27.0-31.0) pg MCHC (32.0-36.0) g/dL RDW (12.0-15.0) % Plt Count (130-450) 10^3/uL MPV (7.9-10.8) fL Neut # (Auto) (1.5-6.6) 10^3/uL Lymph # (Auto) (1.5-3.5) 10^3/uL Scurry # (Auto) (0.0-1.0) 10^3/uL Eos # (Auto) (0.0-0.7) 10^3/uL Baso # (Auto) (0.0-0.1) 10^3/uL Absolute Nucleated RBC x10^3/uL Nucleated RBC % /100WBC Bld Gas Analysis Time 0145 Sample Site RIGHT RADIAL ABG pH 7.46 H (7.35-7.45) ABG pCO2 27 L (34-45) mmHg ABG pO2 103 (83-108) mmHg ABG HCO3 19.4 L (22.0-26.0) mmol/L ABG Total CO2 20.2 L (21.0-29.0) mmol/L ABG O2 Saturation 100 H (95-98) % ABG Base Excess -4.7 L (-2.0-3.0) mmol/L Case Test POSITIVE VBG pH 7.385 (7.31-7.41) VBG pCO2 35.3 L (41-51) mmHg VBG pO2 35.2 (25-47) mmHg VBG HCO3 21.3 L (23-28) mmol/L VBG Total CO2 22.4 L (24-29) mmol/L VBG O2 Saturation 56.0 L (60-80) % VBG Base Excess -3.9 L (-2 - +2) mmol/L O2 Delivery Device NO DEVICE/ROOM AIR FiO2 21.00 Sodium 130 L (135-145) mmol/L Potassium 3.5 (3.5-4.5) mmol/L Chloride 97 L (101-111) mmol/L Carbon Dioxide 23 (21-32) mmol/L Anion Gap 10.0 (6-13) BUN 21 H (6-20) mg/dL Creatinine 0.9 (0.6-1.3) mg/dL Estimated GFR (MDRD) 63 L (>89) Glucose 462 H (74-104) mg/dL POC Whole Bld Glucose (70-100) mg/dL Estimat Average Glucose (70-100) mg/dL Hemoglobin A1c % (4.27-6.07) % Calcium 9.4 (8.5-10.3) mg/dL Phosphorus 2.7 (2.5-5.0) mg/dL Magnesium 1.9 (1.7-2.3) mg/dL Total Bilirubin (0.2-1.0) mg/dL AST (10-42) IU/L ALT (10-60) IU/L Alkaline Phosphatase (42-121) IU/L Total Protein (6.4-8.9) g/dL Albumin (3.2-5.5) g/dL Globulin (2.1-4.2) g/dL Albumin/Globulin Ratio (1.0-2.2) Urine Color Urine Clarity (CLEAR) Urine pH (5.0-7.5) PH Ur Specific [place] (1.002-1.030) Urine Protein (NEGATIVE) mg/dL Urine Glucose (UA) (NEGATIVE) mg/dL Urine Ketones (NEGATIVE) mg/dL Urine Occult Blood (NEGATIVE) Urine Nitrite (NEGATIVE) Urine Bilirubin (NEGATIVE) Urine Urobilinogen (NORMAL) E.U./dL Ur Leukocyte Esterase (NEGATIVE) Ur Microscopic Review Urine Culture Comments Nasal Screen MRSA (PCR) POSITIVE A* (NEGATIVE) Ethyl Alcohol mg/dL Serum Ketones (NEGATIVE) 03/28/25 03/28/25 03/27/25 Range/Units 01:15 00:23 23:15 WBC (4.8-10.8) x10^3/uL RBC (4.20-5.40) 10^6/uL Hgb (12.0-16.0) g/dL Hct (37.0-47.0) % MCV (81.0-99.0) fL MCH (27.0-31.0) pg MCHC (32.0-36.0) g/dL RDW (12.0-15.0) % Plt Count (130-450) 10^3/uL MPV (7.9-10.8) fL Neut # (Auto) (1.5-6.6) 10^3/uL Lymph # (Auto) (1.5-3.5) 10^3/uL Scurry # (Auto) (0.0-1.0) 10^3/uL Eos # (Auto) (0.0-0.7) 10^3/uL Baso # (Auto) (0.0-0.1) 10^3/uL Absolute Nucleated RBC x10^3/uL Nucleated RBC % /100WBC Bld Gas Analysis Time Sample Site ABG pH (7.35-7.45) ABG pCO2 (34-45) mmHg ABG pO2 (83-108) mmHg ABG HCO3 (22.0-26.0) mmol/L ABG Total CO2 (21.0-29.0) mmol/L ABG O2 Saturation (95-98) % ABG Base Excess (-2.0-3.0) mmol/L Case Test VBG pH (7.31-7.41) VBG pCO2 (41-51) mmHg VBG pO2 (25-47) mmHg VBG HCO3 (23-28) mmol/L VBG Total CO2 (24-29) mmol/L VBG O2 Saturation (60-80) % VBG Base Excess (-2 - +2) mmol/L O2 Delivery Device FiO2 Sodium (135-145) mmol/L Potassium (3.5-4.5) mmol/L Chloride (101-111) mmol/L Carbon Dioxide (21-32) mmol/L Anion Gap (6-13) BUN (6-20) mg/dL Creatinine (0.6-1.3) mg/dL Estimated GFR (MDRD) (>89) Glucose (74-104) mg/dL POC Whole Bld Glucose 438 533 > 600 (70-100) mg/dL Estimat Average Glucose (70-100) mg/dL Hemoglobin A1c % (4.27-6.07) % Calcium (8.5-10.3) mg/dL Phosphorus (2.5-5.0) mg/dL Magnesium (1.7-2.3) mg/dL Total Bilirubin (0.2-1.0) mg/dL AST (10-42) IU/L ALT (10-60) IU/L Alkaline Phosphatase (42-121) IU/L Total Protein (6.4-8.9) g/dL Albumin (3.2-5.5) g/dL Globulin (2.1-4.2) g/dL Albumin/Globulin Ratio (1.0-2.2) Urine Color Urine Clarity (CLEAR) Urine pH (5.0-7.5) PH Ur Specific [place] (1.002-1.030) Urine Protein (NEGATIVE) mg/dL Urine Glucose (UA) (NEGATIVE) mg/dL Urine Ketones (NEGATIVE) mg/dL Urine Occult Blood (NEGATIVE) Urine Nitrite (NEGATIVE) Urine Bilirubin (NEGATIVE) Urine Urobilinogen (NORMAL) E.U./dL Ur Leukocyte Esterase (NEGATIVE) Ur Microscopic Review Urine Culture Comments Nasal Screen MRSA (PCR) (NEGATIVE) Ethyl Alcohol mg/dL Serum Ketones (NEGATIVE) 03/27/25 03/27/25 Range/Units 21:11 20:10 WBC 11.4 H (4.8-10.8) x10^3/uL RBC 4.30 (4.20-5.40) 10^6/uL Hgb 13.4 (12.0-16.0) g/dL Hct 42.4 (37.0-47.0) % MCV 98.6 (81.0-99.0) fL MCH 31.2 H (27.0-31.0) pg MCHC 31.6 L (32.0-36.0) g/dL RDW 12.6 (12.0-15.0) % Plt Count 329 (130-450) 10^3/uL MPV 10.3 (7.9-10.8) fL Neut # (Auto) 9.6 H (1.5-6.6) 10^3/uL Lymph # (Auto) 1.2 L (1.5-3.5) 10^3/uL Scurry # (Auto) 0.5 (0.0-1.0) 10^3/uL Eos # (Auto) 0.0 (0.0-0.7) 10^3/uL Baso # (Auto) 0.1 (0.0-0.1) 10^3/uL Absolute Nucleated RBC 0.00 x10^3/uL Nucleated RBC % 0.0 /100WBC Bld Gas Analysis Time Sample Site ABG pH (7.35-7.45) ABG pCO2 (34-45) mmHg ABG pO2 (83-108) mmHg ABG HCO3 (22.0-26.0) mmol/L ABG Total CO2 (21.0-29.0) mmol/L ABG O2 Saturation (95-98) % ABG Base Excess (-2.0-3.0) mmol/L Case Test VBG pH 7.389 (7.31-7.41) VBG pCO2 33.4 L (41-51) mmHg VBG pO2 54.1 H (25-47) mmHg VBG HCO3 20.4 L (23-28) mmol/L VBG Total CO2 21.4 L (24-29) mmol/L VBG O2 Saturation 82.0 H (60-80) % VBG Base Excess -4.8 L (-2 - +2) mmol/L O2 Delivery Device FiO2 Sodium 122 L (135-145) mmol/L Potassium 5.0 H (3.5-4.5) mmol/L Chloride 90 L (101-111) mmol/L Carbon Dioxide 23 (21-32) mmol/L Anion Gap 9.0 (6-13) BUN 21 H (6-20) mg/dL Creatinine 1.0 (0.6-1.3) mg/dL Estimated GFR (MDRD) 56 L (>89) Glucose 846 H* (74-104) mg/dL POC Whole Bld Glucose (70-100) mg/dL Estimat Average Glucose 355 H (70-100) mg/dL Hemoglobin A1c % 14.0 H (4.27-6.07) % Calcium 9.3 (8.5-10.3) mg/dL Phosphorus (2.5-5.0) mg/dL Magnesium (1.7-2.3) mg/dL Total Bilirubin 0.6 (0.2-1.0) mg/dL AST 8 L (10-42) IU/L ALT 7 L (10-60) IU/L Alkaline Phosphatase 72 (42-121) IU/L Total Protein 7.1 (6.4-8.9) g/dL Albumin 4.4 (3.2-5.5) g/dL Globulin 2.7 (2.1-4.2) g/dL Albumin/Globulin Ratio 1.6 (1.0-2.2) Urine Color LIGHT YELLOW Urine Clarity CLEAR (CLEAR) Urine pH 5.0 (5.0-7.5) PH Ur Specific [place] 1.005 (1.002-1.030) Urine Protein NEGATIVE (NEGATIVE) mg/dL Urine Glucose (UA) >=1000 H (NEGATIVE) mg/dL Urine Ketones 15 H (NEGATIVE) mg/dL Urine Occult Blood NEGATIVE (NEGATIVE) Urine Nitrite NEGATIVE (NEGATIVE) Urine Bilirubin NEGATIVE (NEGATIVE) Urine Urobilinogen 0.2 (NORMAL) (NORMAL) E.U./dL Ur Leukocyte Esterase NEGATIVE (NEGATIVE) Ur Microscopic Review NOT INDICATED Urine Culture Comments NOT INDICATED Nasal Screen MRSA (PCR) (NEGATIVE) Ethyl Alcohol < 10.0 mg/dL Serum Ketones NEGATIVE (NEGATIVE) Assessment/Plan Problem List (1) Hyperosmolar hyperglycemic state (HHS): Impression: The patient's glucose is still erratic. Started at 154 this morning and in spite of treatment increased to over 300 by this afternoon. I we will keep her 1 more day to continue to bring sugar down. I will add Lantus 10 units tonight. (2) Alcohol use disorder: Impression: With alcoholic dementia, possible Warnicke's, history of falls. No current alcohol use as of this admission. Last use was over a week ago. At this time I am not worried about withdrawal.Please see separate advance care planning conversation dictated with separate note (3) Chronic steroid use: Impression: Due to eosinophilic asthma. That is continued.
--- NOTE | 2025-03-28 18:37 | ADVANCE CARE PLANNING NOTE ---
Advance Care Planning Planning Encounter Date: 03/28/25 Time: 18:43 Purpose: Establish CODE STATUS and history Parties in Attendance: Hospitalist inpatient initially. Subsequent conversation over the phone with her guardian after Decisional Capacity of the Patient: Alert and oriented to person, place, but not time and poor insight into situation. Does not recognize cognitive deficits she has Diagnosis for Encounter (1) Moderate dementia associated with alcoholism: Summary: Has been drinking since her teenage years. Escalated with the 1st and 2nd marriage. By the end of her second marriage in 2016- 2017 family noted gait ataxia, cognitive deficits, weight gain, falls, and involuntarily detained in 2020. Has had a guardian since that time. Encounter Subjective/Patient's Story: This pleasant female has an alcohol use disorder with cognitive issues. In the past she has had gait ataxia, falls, urinary incontinence and was sent to neurology for evaluation but she has declined to do that. She was living in an assisted living facility [facility] and now moved to the rehabilitation institute for more independence. Her guardian is Elise Born in [facility], then moved to [place], [place] at ~age of 3. She went to [employer] [facility] [employer] and a satellite campus for . Came close to finishing degree. twice. from 1st but then second September 2018. No kids. 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 She began drinking with her first . 1980s. Kept on for decades. She stopped working with second and travelled. [place], [place], [place]. Drinking much worse last few years of second marriage. Gained a lot of weight and stopped being a runner or going to gym. Hard time getting up out of a chair. Shortly after second , brother and dad noticed really balanced impaired. She nearly fell at a restaurant or getting out of a cab. She continued living alone in her [place] home. Unfortunately this patient was deemed incapacitated enough to be an involuntary admission to [facility] in 2020. From [facility] she went to a alf facility. From there she went to her shelter in [place]. She has been clean and sober for about 18 months until November of 2022 and acquaintance of hers brought her a bottle of vodka to the shelter. She became intoxicated and then again had to be admitted to the hospital. She was also admitted to [facility] for asthma exacerbation. Somewhere between September and January 2023, she has managed to get herself a striper. She has been erratic in her compliance but the diagnosis is eosinophilic asthma. She usually responds to steroids, bronchodilators. She is also supposed to be picking up a monoclonal biologic such as Fasenra. She finally came to the [facility] in 2022 and has been here since. Admitted 01/2023 to [facility] and left AMA from our hospital. She was felt to have Warnicke's encephalopathy but not a formal diagnosis. Family and guardian managed to get her placed by June 2023 and she was living in [facility] for a year and a half. She then moved to a [facility] for more freedom in January 2025. She has not been doing well. I spoke to her current guardian Supriya Rosario @ [phone] ([facility]) and she decribes a malodorous apartment with urine in bed. She did have a relapse a few days ago and drank for about 3 days. She was seen in the primary care provider office last week. This is what started the journey of finding out that she was with uncontrolled diabetes. In the primary care provider office they did fill out a POLST form but that was not sent to the hospital. I discussed with the guardian and with the patient that the patient wishes to be a full code with all treatment done and to prolong life by all medically effective means. The guardian says that they filled out the paper and she endorses the patient's decision for this. Plan is for the patient to be discharged once her glucose is controlled. But hopefully they will find an assisted living facility willing to take her back. Currently [facility] refuses to take the patient back. She cannot live in a the rehabilitation institute since she has enough cognitive deficits that she cannot give herself insulin. Objective/Medical Story: Patient is 65 y/o F with hx of alcohol use disorder and some cognitive issues with refusal to puruse neurology referral for urinary incontinence and ataxia and patient's refusal to believe her gait issues which are well noted by care givers and concerned family members , who was living in [facility] now moved [place] [facility] [place] and patient has Guardian Elise, she can be reached at [phone], is priyank to hospital for abnormal Labs of Blood sugar > 600 mg/dl on outpatient labs Patient has hx of Eosinophilic asthma and as per records review from outpatient patient is on chronic daily prednisone 10 mg daily and Nucala injection monthly. Review of Medical records show from outpatient there are concern for cognition and refusal of care, in ER Patient had Blood sugar > 800 and high osmolality, hospitalist is asked to admit patient, Last A1c prior to this was 6.8 as per outpatient notes Patient is communicating , talking, alert, oriented x 3 and brother wyatt is at bedside Patient denies any alcohol use but brother tells me patient had relapse 2 weeks ago (last drink) which is inconsistent with patient's self stated abstinence > 1 year, patient has no recollection of any drinking of alcohol 2 weeks ago Goals of Care: Patient's goal of care is to return to her home in independent living. However after discussion with her guardian, the patient is not safe to go home because of cognitive deficits and has to learn how to control her glucose better. And unfortunately we will have to probably have somebody else take care of her for her diabetes. Plan: 1. New POLST form filled out and she is a full code 2. Patient not quite ready for discharge. Keep her in house until she can fully demonstrate that she can least understand how much insulin to give herself before she is discharged. 3. Probable discharge to an assisted living facility once that can be located. This is for her safety. Additional Discussion: 60 minutes was spent discussing this case with the patient, the guardian, and having a POLST form filled out Code Status: Attempt Resuscitation Time spent on advance care plannin minutes
[2025-03-28] MEDS: GABAPENTIN 300 MG CAPSULE PO SCH (21:11)
[2025-03-28] MEDS: ATORVASTATIN 10 MG TABLET PO SCH (21:11)
[2025-03-28] MEDS: ESCITALOPRAM 10 MG TABLET PO SCH (21:11)
[2025-03-28] MEDS: ACETAMINOPHEN 325 MG TABLET PO PRN (21:33)
[2025-03-29 05:19] LABS: VBG PH 7.386 (7.31-7.41)
[2025-03-29 05:35] LABS: BUN - BLOOD UREA NITROGEN 12.0 mg/dL (6-20); CARBON DIOXIDE - CO2 23.0 mmol/L (21-32); CREATININE 0.6 mg/dL (0.6-1.3); GFR - MDRD 100.0 (>89); PHOSPHORUS 3.7 mg/dL (2.5-5.0)
[2025-03-29] MEDS: CHOLECALCIFEROL 25 MCG TABLET PO SCH (08:09)
[2025-03-29] MEDS: INSULIN GLARGINE-YFGN 300 UNIT/3 ML PEN SUBQ SCH (08:30)
[2025-03-30] MEDS ORDERED: INSULIN GLARGINE-YFGN 300 UNIT/3 ML PEN SUBQ STA (08:23)
[2025-03-30] MEDS: INSULIN GLARGINE-YFGN 300 UNIT/3 ML PEN SUBQ SCH ×2 (08:40→21:14)
[2025-03-30] MEDS: INSULIN LISPRO 300 UNIT/3 ML PEN SUBQ STA (12:09)
--- NOTE | 2025-03-30 12:11 | PROVIDER PROGRESS NOTE ---
Subjective Prog Note Date Prog Note Date: 03/30/25 Prog Note Time: 12:10 Subjective Pt reports feeling: No change Subjective: RN reports that this patient truly has a very very poor short-term memory. She has been shown the insulin pens, how to dial in the insulin dose, do an Accu- Chek to calculate how much insulin to give, and she cannot retain the memory to do it. Patient keeps on insisting she can but when the nurse gives over the Accu-Chek, the pens and the needles, the patient does not have the cognitive ability to take the Off of the insulin pen much less put the needle on the insulin pen. And then she mixes up her long-acting and short acting insulin. Current Medications Current Medications Current Medications: Current Medications Generic Name Dose Route Start Last Admin Trade Name Freq PRN Reason Stop Dose Admin Acetaminophen 650 mg 03/28/25 21:09 03/29/25 20:43 Acetaminophen 325 Mg Tablet PO 650 mg Q4HR PRN Administration Pain or Fever > 38C (100.4F) Albuterol 2.5 mg 03/28/25 01:00 Albuterol Neb 2.5 Mg/3 Ml INH QID PRN shortness of breath or wheezin Alcohol 1 amp 03/28/25 09:00 03/30/25 08:22 Ethyl Alcohol 62% Swab Ampule KAITLIN 1 amp BID JESUS Administration Atorvastatin Calcium 20 mg 03/28/25 21:00 03/29/25 20:43 Atorvastatin 10 Mg Tablet PO 20 mg QPM JESUS Administration Cholecalciferol 50 mcg 03/29/25 09:00 03/30/25 08:21 Cholecalciferol 25 Mcg Tablet PO 50 mcg DAILY JESUS Administration Escitalopram Oxalate 20 mg 03/28/25 20:00 03/30/25 08:21 Escitalopram 10 Mg Tablet PO 20 mg DAILY JESUS Administration Gabapentin 600 mg 03/28/25 22:00 03/30/25 06:47 Gabapentin 300 Mg Capsule PO 600 mg TID JESUS Administration Heparin Sodium (Porcine) 5,000 unit 03/28/25 09:00 03/30/25 08:40 Heparin 5,000 Unit/Ml Vial SUBQ 5,000 unit BID JESUS Administration Insulin Glargine-yfgn 30 unit 03/30/25 09:00 03/30/25 08:40 Insulin Glargine-Yfgn 300 Unit/3 Ml Pen SUBQ 30 unit QDBREAKFAST JESUS Administration Insulin Glargine-yfgn 10 unit 03/30/25 21:00 Insulin Glargine-Yfgn 300 Unit/3 Ml Pen SUBQ QPM JESUS Insulin Human Lispro 3 - 11 unit 03/28/25 08:00 03/30/25 08:40 Insulin Lispro 300 Unit/3 Ml Pen SUBQ 9 unit 0800,1200,1700,2100 [facility] Administration Protocol Insulin Human Lispro 7 unit 03/30/25 17:00 Insulin Lispro 300 Unit/3 Ml Pen SUBQ TIDWM [facility] Protocol Ondansetron HCl 4 mg 03/28/25 00:49 Ondansetron 4 Mg/2 Ml Vial IVP Q6HR PRN Nausea / Vomiting Sodium Chloride 10 ml 03/28/25 01:00 03/30/25 08:22 Sodium Chloride Flush 0.9% 10 Ml Syringe IVP 10 ml 0100,0900,1700 JESUS Administration Sodium Chloride 10 ml 03/28/25 00:49 Sodium Chloride Flush 0.9% 10 Ml Syringe IVP PRN PRN NEEDED PER PROVIDER ORDERS Thiamine HCl 100 mg 03/28/25 09:00 03/30/25 08:21 Thiamine 100 Mg Tablet PO 100 mg DAILY JESUS Administration Trazodone HCl 150 mg 03/28/25 21:00 03/29/25 21:37 Trazodone 50 Mg Tablet PO 150 mg HS JESUS Administration Objective Vital Signs/Intake & Output Reviewed Vital Signs: Yes Vital Signs: Vital Signs x48h Temp Pulse Resp BP Pulse Ox 03/30/25 09:15 36.4 C L 90 14 99/61 99 03/30/25 06:00 36.7 C 68 15 98/60 96 Intake & Output: Intake & Output 03/27/25 03/28/25 03/29/25 03/30/25 23:59 23:59 23:59 23:59 Intake Total 1006 / 1006 195 / 1950 1316 / 1316 250 / 250 Output Total 1600 / 1600 800 / 800 0 / 0 Balance 1006 / 1006 351 / 351 516 / 516 250 / 250 Weight (kg) 86.183 kg 83.5 kg 82.5 kg 82 kg Lab Results 03/28/25 04:34 03/29/25 04:51 Other Labs: Lab Results x24hrs 03/29/25 03/29/25 Range/Units 20:27 17:09 POC Whole Bld Glucose 314 302 (70-100) mg/dL Assessment/Plan Problem List (1) Hyperosmolar hyperglycemic state (HHS): Impression: She has a new diagnosis of type 2 diabetes mellitus, uncontrolled, with hyperglycemia, now on long-term use of insulin. In spite of my starting Lantus 18 in the morning, and continuing sliding scale insulin, the patient's glucose still in the 300 range yesterday. So this morning I am increasing Lantus to 30 in the morning. I am adding 7 units with each meal. 10 units of Lantus at night. Will see if we can get her down to goal. I would like her to be consistently below 200 before I discharge her. She cannot be discharged to independent living. Her cognitive deficits and severe poor memory loss would be an unsafe condition for her. Her guardian has made arrangements for this patient to be discharged to an assisted living facility. The assisted living facility is coming to interview her today. The patient is insistent that she is going home, and she will live independently, but seems to forget that she has a guardian and does not have the wherewithal to do so. If I can get her glucose down to below 200 by this evening and tomorrow morning, she will be discharged to the assisted living facility.I am asking the nurses to encourage her to drink water. Get up and walk around the room. (2) Alcohol use disorder: Impression: With alcoholic dementia, possible Warnicke's, history of falls. No current alcohol use as of this admission. Last use was over a week ago. At this time I am not worried about withdrawal.Please see separate advance care planning conversation dictated with separate note (3) Chronic steroid use: Impression: Due to eosinophilic asthma. That is continued.
[2025-03-30] MEDS: INSULIN LISPRO 300 UNIT/3 ML PEN SUBQ SCH (16:58)
--- NOTE | 2025-03-31 08:13 | PROVIDER PROGRESS NOTE ---
Subjective Prog Note Date Prog Note Date: 03/29/25 Prog Note Time: 12:00 Subjective Subjective: This is a late entry. The patient was admitted on the with new hyperglycemia that is quite severe. This is a new diagnosis for her. She has eosinophilic asthma and is on a monoclonal antibody and daily steroid use. She was initially observation but I changed her to inpatient and added Lantus yesterday to nighttime regimen including sliding scale. Today glucose continues to be on controlled and I am increasing her Lantus. Current Medications Current Medications Current Medications: Current Medications Generic Name Dose Route Start Last Admin Trade Name Freq PRN Reason Stop Dose Admin Acetaminophen 650 mg 03/28/25 21:09 03/30/25 15:39 Acetaminophen 325 Mg Tablet PO 650 mg Q4HR PRN Administration Pain or Fever > 38C (100.4F) Albuterol 2.5 mg 03/28/25 01:00 Albuterol Neb 2.5 Mg/3 Ml INH QID PRN shortness of breath or wheezin Alcohol 1 amp 03/28/25 09:00 03/30/25 21:11 Ethyl Alcohol 62% Swab Ampule KAITLIN 1 amp BID JESUS Administration Atorvastatin Calcium 20 mg 03/28/25 21:00 03/30/25 21:11 Atorvastatin 10 Mg Tablet PO 20 mg QPM JESUS Administration Cholecalciferol 50 mcg 03/29/25 09:00 03/30/25 08:21 Cholecalciferol 25 Mcg Tablet PO 50 mcg DAILY JESUS Administration Escitalopram Oxalate 20 mg 03/28/25 20:00 03/30/25 08:21 Escitalopram 10 Mg Tablet PO 20 mg DAILY JESUS Administration Gabapentin 600 mg 03/28/25 22:00 03/31/25 06:07 Gabapentin 300 Mg Capsule PO 600 mg TID JESUS Administration Heparin Sodium (Porcine) 5,000 unit 03/28/25 09:00 03/30/25 21:12 Heparin 5,000 Unit/Ml Vial SUBQ 5,000 unit BID JESUS Administration Insulin Glargine-yfgn 30 unit 03/30/25 09:00 03/30/25 08:40 Insulin Glargine-Yfgn 300 Unit/3 Ml Pen SUBQ 30 unit QDBREAKFAST JESUS Administration Insulin Glargine-yfgn 10 unit 03/30/25 21:00 03/30/25 21:14 Insulin Glargine-Yfgn 300 Unit/3 Ml Pen SUBQ 10 unit QPM JESUS Administration Insulin Human Lispro 3 - 11 unit 03/28/25 08:00 03/30/25 21:14 Insulin Lispro 300 Unit/3 Ml Pen SUBQ 7 unit 0800,1200,1700,2100 JESUS Administration Protocol Insulin Human Lispro 7 unit 03/30/25 17:00 03/30/25 16:58 Insulin Lispro 300 Unit/3 Ml Pen SUBQ 7 unit TIDWM [facility] Administration Protocol Ondansetron HCl 4 mg 03/28/25 00:49 Ondansetron 4 Mg/2 Ml Vial IVP Q6HR PRN Nausea / Vomiting Sodium Chloride 10 ml 03/28/25 01:00 03/31/25 06:07 Sodium Chloride Flush 0.9% 10 Ml Syringe IVP 10 ml 0100,0900,1700 JESUS Administration Sodium Chloride 10 ml 03/28/25 00:49 Sodium Chloride Flush 0.9% 10 Ml Syringe IVP PRN PRN NEEDED PER PROVIDER ORDERS Thiamine HCl 100 mg 03/28/25 09:00 03/30/25 08:21 Thiamine 100 Mg Tablet PO 100 mg DAILY JESUS Administration Trazodone HCl 150 mg 03/28/25 21:00 03/30/25 21:11 Trazodone 50 Mg Tablet PO 150 mg HS JESUS Administration Objective Vital Signs/Intake & Output Reviewed Vital Signs: Yes Vital Signs: Vital Signs x48h Temp Pulse Resp BP Pulse Ox 03/31/25 05:00 36.7 C 87 16 119/82 96 Intake & Output: Intake & Output 03/28/25 03/29/25 03/30/25 03/31/25 23:59 23:59 23:59 23:59 Intake Total 1950 1316 / 1316 1260 / 1260 Output Total 1600 / 1600 800 / 800 0 / 0 0 / 0 Balance 351 / 351 516 / 516 1260 / 1260 0 / 0 Weight (kg) 83.5 kg 82.5 kg 82 kg 81 kg Objective General Appearance: positive No acute distress, Alert and Other (Main finding is confabulation, memory loss, and inability to follow instructions more than a minute at a time) Eyes Bilateral: positive PERRL and EOMI ENT: positive No signs of dehydration Neck: positive No JVD; negative Carotid bruit Respiratory: positive Chest non-tender, No respiratory distress and Breath sounds nml Cardiovascular: positive Regular rate & rhythm, No murmur and No gallop Skin: positive Color nml, No rash and Warm Extremities: positive Non-tender, Full ROM and Nml appearance Neurologic/Psychiatric: positive Disoriented to time (Knows that she is in the hospital. Poor understanding of her disease, and really cannot follow nursing instruction. Moment to moment she forgets how to connect the needles with a pen, how to check her sugar, and how to give her insulin. She is currently memorizing her insulin pen pens short actin); negative Motor nml (Ataxia when she stands up and tries to walk) Lab Results 03/28/25 04:34 03/29/25 04:51 Other Labs: Lab Results x24hrs 03/31/25 03/30/25 03/30/25 Range/Units 07:48 20:46 16:29 POC Whole Bld Glucose 178 257 184 (70-100) mg/dL Assessment/Plan Problem List (1) Hyperosmolar hyperglycemic state (HHS): Impression: Now with a new diagnosis of type 2 diabetes mellitus, uncontrolled, with hyperglycemia. Peripheral neuropathy. Her dementia is dangerous with regards to her diabetes management. I am currently increasing her Lantus and adding more doses, as well as increased seeing her short acting insulin before meals and effort to get her sugars consistently below 200. I have spoken to her guardian and DPOA and plan is for discharge to assisted living facility since she cannot live alone. (2) Alcohol use disorder: Impression: Continued on her naloxone. And trazodone. (3) Chronic steroid use: Impression: For eosinophilic asthma. She gets a monoclonal antibody once a month. Steroids are daily. We initially stopped her steroids. Those will be resumed at discharge.Need to follow-up about tapering off or if she is would stay on them due to her disease? 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
--- NOTE | 2025-03-31 08:16 | Discharge Summary ---
Discharge Summary Admit Date: 04/28/25 Discharge Date: 03/31/25 Discharging Provider: Aleja Howard MD Primary Care Provider: Aviva Canales MD Code Status: Attempt Resuscitation Discharge Facility [facility]: [facility] DIAGNOSES Discharge Diagnoses with Status of Each Condition: 1. Type 2 diabetes mellitus, uncontrolled, with hyperglycemia, with long-term use of insulin. New diagnosis 2. Hyperosmolar hyperglycemic state 3. Alcohol use disorder 4. Alcoholic dementia, has a guardian 5. 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 Eosinophilic asthma 7. Chronic steroid use 8. Osteopenia 9. History of falls HPI History of Present Illness: Patient is 65 y/o F with hx of alcohol use disorder and some cognitive issues with refusal to puruse neurology referral for urinary incontinence and ataxia and patient's refusal to believe her gait issues which are well noted by care givers and concerned family members , who was living in [facility] now moved to a [facility] away from [facility] for more independence. Patient has Guardian Elise, she can be reached at [phone], is priyank to hospital for abnormal Labs of Blood sugar > 600 mg/dl on outpatient labs Patient has hx of Eosinophilic asthma and as per records review from outpatient patient is on chronic daily prednisone 10 mg daily and Nucala injection monthly. Review of Medical records show from outpatient there are concern for cognition and refusal of care, in ER Patient had Blood sugar > 800 and high osmolality, hospitalist is asked to admit patient, Last A1c prior to this was 6.8 as per outpatient notes Patient is communicating , talking, alert, oriented x 3 and brother wyatt is at bedside Patient denies any alcohol use but brother tells me patient had relapse 2 weeks ago (last drink) which is inconsistent with patient's self stated abstinence > 1 year, patient has no recollection of any drinking of alcohol 2 weeks ago HOSPITAL COURSE Hospital Course: Patient was started on aggressive insulin management which included an insulin drip. She was on an insulin drip until she dropped below 200 and then we switched her over to Lantus and sliding scale and resumed a diet. She is now on a diabetic diet. This patient has alarming amounts of dementia. She is unable to follow instructions on a consistent basis with regards to the use of her insulin pen. For instance she insist on trying to recognize her short acting and long-acting by the "color" on the pen. We explained that this not a good way to recognize insulin. If she accidentally overdoses on her short acting insulin, it could kill her. The mechanics of just taking the off the pen cap, and putting an insulin needle on the pen was beyond her capability. She was not able to read her Glucometer results consistently. And she struggled to use the glucometer. She has ended up requiring 30 units of long-acting insulin in the morning, and 10 units of long-acting at night. She was on 7 units before each meal of short acting but glucose still consistently elevated with some meals. As such she is being discharged on 10 units Short acting before each meal. No other New medical issues were identified during her stay. She is recognized as having alcoholic dementia, impulsive behavior, cerebellar ataxia with falls. Urinary incontinence. Those were present during her stay but not acutely addressed. Blood pressure remained stable during her stay. She is eating her meals and feeding herself. She is on osteopenia treatment with vitamin D and calcium. She is taking Lipitor for hyperlipidemia. She is on gabapentin for neuropathy. She is on Nucala injectable once a month for her eosinophilic asthma. She also takes thiamine on a daily basis. At discharge blood pressure was 119/82, pulse 87, respiration 16, temp 36.7. O2 sat 96% on room air. She is a pleasant, cooperative 65-year-old female who perseverates because of poor memory. You find yourself repeating yourself every 2 to 3 minutes. Neck is supple. Lungs are clear to auscultation and percussion. She has a regular rate and rhythm. The abdomen is soft and nontender with normal bowel sounds. Extremities without edema. No tremors. Oriented to person. Intermittently oriented to place, time, and situation. Confabulates. Mixes up past events with current events. Ataxic when standing and trying to walk. No focal deficits. Greater than 30 minutes was spent coordinating discharge This document was made in part using voice recognition software. While efforts are made to proofread this document, sound alike and grammatical errors may occur. ALLERGIES Allergies Allergy/AdvReac Type Severity Reaction Status Date / Time aspirin Allergy Severe Anaphylaxis Verified 03/27/25 19:10 dust Allergy Mild Unknown Uncoded 03/27/25 19:10 MEDICATIONS Ambulatory Orders Medication Instructions Recorded Confirmed acetaminophen 325 mg tablet 650 mg (2 x 325 mg) PO Q4H R PRN 09/01/25 Pain Or Fever > 38c (100.4f) #60 tabs albuterol sulfate 90 mcg/actuation 2 puff inhalation Q ID PRN 03/31/25 aerosol inhaler (Ventolin HFA) shortness of breath or wheezing #8.5 grams atorvastatin 20 mg tablet (Lipitor) 20 mg PO QPM #30 t abs 03/31/25 cholecalciferol (vitamin D3) 50 50 mcg PO DAILY #30 ca ps 03/31/25 mcg (2,000 unit) capsule escitalopram oxalate 20 mg tablet 20 mg PO QDAY #30 ta bs 03/31/25 gabapentin 600 mg tablet 600 mg PO TID #90 tabs 03/31 insulin glargine-yfgn 100 unit/mL 10 unit (0.1 mL) sub cut QPM #15 mL 03/31/25 (3 mL) subcutaneous pen insulin glargine-yfgn 100 unit/mL 30 unit (0.3 mL) sub cut 03/31/25 (3 mL) subcutaneous pen QDBREAKFAST #15 mL insulin lispro 100 unit/mL 10 unit (0.1 mL) subcut TID WM #15 03/31/25 subcutaneous pen (Humalog KwikPen mL (U-100) Insulin) mepolizumab 100 mg/mL subcutaneous 100 mg subcut Q28D #1 mL 03/31/25 syringe (Nucala) naltrexone 50 mg tablet 50 mg PO DAILY #30 tabs 08/24 pen needle, diabetic 31 gauge x #1,200 ea 03/31/25 3/16" (Advocate Pen Needle) prednisone 10 mg tablet 10 mg PO DAILY #30 tabs 08/24 thiamine mononitrate (vit B1) 100 100 mg PO DAILY #30 tabs 03/31/25 mg tablet (Vitamin B-1 (mononitrate)) trazodone 150 mg tablet 150 mg PO HS #30 tabs 03/28/25 PHYSICAL EXAM AT DISCHARGE Vital Signs: Vital Signs x48h Temp Pulse Resp BP Pulse Ox 03/31/25 05:00 36.7 C 87 16 119/82 96 LABS 03/28/25 04:34 03/29/25 04:51 Discharge Plan Discharge Patient Disposition: [facility], Self Care Condition: Fair Medically Cleared Date:: 03/31/25 Prescriptions: New acetaminophen 325 mg Tablet 650 mg PO Q4HR PRN (Reason: Pain Or Fever > 38c (100.4f)) Qty: 60 0RF insulin lispro [Humalog KwikPen Insulin] 100 unit/mL Insulin Pen 10 unit subcut TIDWM Qty: 15 0RF insulin glargine-yfgn 100 unit/mL (3 mL) Insulin Pen 30 unit subcut QDBREAKFAST Qty: 15 0RF insulin glargine-yfgn 100 unit/mL (3 mL) Insulin Pen 10 unit subcut QPM Qty: 15 0RF (DME) pen needle, diabetic [Advocate Pen Needle] 31 gauge x 3/16" needle See Rx Instructions .Route Qty: 1200 0RF Rx Instructions: As directed Continued gabapentin 600 mg tablet 600 mg PO TID Qty: 90 0RF atorvastatin [Lipitor] 20 mg tablet 20 mg PO QPM Qty: 30 0RF trazodone 150 mg tablet 150 mg PO HS Qty: 30 0RF albuterol sulfate [Ventolin HFA] 90 mcg/actuation HFA aerosol inhaler 2 puff inhalation QID PRN (Reason: shortness of breath or wheezing) Qty: 8.5 0RF escitalopram oxalate 20 mg tablet 20 mg PO QDAY Qty: 30 0RF cholecalciferol (vitamin D3) 50 MCG capsule 50 mcg PO DAILY Qty: 30 0RF thiamine mononitrate (vit B1) [Vitamin B-1 (mononitrate)] 100 mg tablet 100 mg PO DAILY Qty: 30 0RF Nucala 100 mg/mL syringe 100 mg SUBCUT Q28D Qty: 1 0RF Changed prednisone 10 mg tablet 10 mg PO DAILY Qty: 30 0RF naltrexone 50 mg tablet 50 mg PO DAILY Qty: 30 0RF Print Language: Somali Patient Instructions: Blood Sugar Check Steps Stand Alone Forms: SNF Discharge Follow-up Care: Aviva Canales MD [Primary Care Provider, Family Practice]
[2025-03-31 10:54] VITALS: BP 127/75; TEMP 98.4; O2SAT 97
== END 2025-03-31 10:50 | disposition home or self-care (01) | DRG 638 ==
LOC: ED 18:48 → ICU 23:42
PROVIDERS: ADMIT Family Medicine; ATTEND Family Medicine